=== PATIENT | male | born 1935 | race Two or more races ===

== ENCOUNTER 2017-10-22 18:08 | Inpatient (IN) | payer MEDICARE, OTHER ==
[~2017-10-22] VITALS: Ht 152.4 cm; Wt 64.5 kg
[2017-10-22 18:16] VITALS: BP 135/75
[2017-10-22] MEDS ORDERED: FOLIC ACID0.8 MG ORAL (19:34)
[2017-10-22] MEDS ORDERED: GLYBURIDE5 MG ORAL (19:34)
[2017-10-22] MEDS ORDERED: LOSARTAN POTAS100 MG ORAL (19:34)
[2017-10-22] MEDS ORDERED: ACARBOSE25 MG ORAL (19:34)
[2017-10-22] MEDS ORDERED: AMLODIPINE BES2.5 MG ORAL (19:34)
[2017-10-22] MEDS ORDERED: SENSIPAR30 MG ORAL ×2 (19:37→19:38)
[2017-10-22] MEDS ORDERED: MECLIZINE HCL25 MG ORAL (19:37)
[2017-10-22] MEDS ORDERED: RENA-VITE TABL0.8 M1 ORAL (19:37)
[2017-10-22] MEDS ORDERED: OMEPRAZOLE40 M1 ORAL (19:37)
[2017-10-22] MEDS ORDERED: RENVELA0.8 GM ORAL (19:38)
[2017-10-22] MEDS ORDERED: VITAMIN B COMP1 EAC2 ORAL (19:39)
[2017-10-22] MEDS ORDERED: SILDENAFIL20 MG ORAL (19:39)
[2017-10-22 20:10] VITALS: BP 157/84
--- NOTE | 2017-10-22 20:14 | Emergency Room Report ---
History of Present Illness General Chief Complaint: Altered Level of Consciousness Source: Patient, Medical Record Present Illness HPI 81-year-old male presents from dialysis Center with altered mental status. History otherwise limited as patient Occ[place] is unintelligible even to Occitan speakers. HPI includes type 2 DM, HTN, HLD, ESRD on HD Allergies: Coded Allergies: UNABLE TO ASSESS (Unverified , 10/22/17) Patient History Past Medical History: other - see HPI Past Surgical History: pacemaker Pertinent Family History: none Social History: Denies: smoking, alcohol use, drug use Immunizations: UTD Reviewed Nursing Documentation: PMH: Agreed, PSxH: Agreed Nursing Documentation-PMH Past Medical History: No History, Except For Hx Hypertension: Yes Hx Pacemaker: Yes Hx Diabetes: Yes Hx Dialysis: Yes - Tue, [facility], Sat/ESRD Review of Systems All Other Systems: limited - AMS? Physical Exam Vital Signs Date Time Temp Pulse Resp B/P (MAP) Pulse Ox O2 Delivery O2 Flow Rate FiO2 10/22/17 18:06 97.7 102 20 164/94 92 Nasal Cannula 2.0 97.7 Sp02 EP Interpretation: reviewed, normal General Appearance: normal inspection, well appearing, no apparent distress, alert, GCS 15, non-toxic, obese Head: normocephalic, atraumatic Eyes: bilateral eye PERRL, bilateral eye EOMI ENT: normal ENT inspection, hearing grossly normal, normal pharynx, no angioedema, normal voice, TMs + canals normal, uvula midline, moist mucus membranes Neck: normal inspection, full range of motion, supple, thyroid normal, no meningismus, no bony tend Respiratory: normal inspection, lungs clear, normal breath sounds, no rhonchi, no respiratory distress, no retraction, no accessory muscle use, no wheezing, speaking full sentences, other - Pacemaker upper left chest Cardiovascular #1: regular rate, rhythm, no edema, no JVD, normal capillary refill Gastrointestinal: normal inspection, normal bowel sounds, non tender, soft, no mass, no peritonitis, non-distended, no guarding, no hernia, no pulsatile mass Genitourinary: no CVA tenderness Musculoskeletal: normal inspection, back normal, normal range of motion, no calf tenderness, pelvis stable, Dora's Sign negative Neurologic: normal inspection, alert, oriented x3, responsive, refrigerator mover III-XII nml as tested, motor strength/tone normal, cerebellar normal, normal gait, speech normal Psychiatric: normal inspection, judgement/insight normal, mood/affect normal, no suicidal/homicidal ideation, no delusions Skin: normal inspection, normal color, no rash Lymphatic: normal inspection, no adenopathy Medical Decision Making Diagnostic Impression: Primary Impression: Altered level of consciousness ER Course vital signs significant for tachycardia Normotensive, afebrile ECG is sinus tachycardia - no peaked Twaves Labs: K normal. SerumCr elevated, likely CKD baseline. Trop elevated likely from known CKD CXR no obvious PNA Afebrile, no leuks - no obvious signs of infection. A&Ox3 - unlikely meningitis. Abdomen is non-peritoneal. Doesnt make urine. CXR without obvious PNA ?Disequilibrium as cause of AMS Endorsed to Dr Newton at 9pm for tele admit EKG Diagnostic Results Rate: tachycardiac Rhythm: NSR ST Segments: no acute changes ASA given to the pt in ED: No Rhythm Strip Diag. Results EP Interpretation: yes Rate: 109 Rhythm: NSR, no PVC's, no ectopy Chest X-Ray Diagnostic Results Chest X-Ray Diagnostic Results : Chest X-Ray Ordered: Yes # of Views/Limited/Complete: 1 View Indication: Other - AMS EP Interpretation: Yes Interpretation: no consolidation, no effusion, no pneumothorax, no acute cardiopulmonary disease Impression: No acute disease Electronically Signed by: Dr Amy Porter MD Last Vital Signs Date Time Temp Pulse Resp B/P (MAP) Pulse Ox O2 Delivery O2 Flow Rate FiO2 10/22/17 18:16 97.7 109 20 135/75 99 Nasal Cannula 2.0 97.7 Status: improved Disposition: ADMITTED INPATIENT Condition: Serious AMY PORTER M.D. Oct 22, 2017 20:13
[2017-10-22 20:30] LABS: ANION GAP 10 mmol/L (5-15); BLOOD UREA NITROGEN 27 mg/dL (7-18); CALCIUM 9.4 MG/DL (8.5-10.1); CARBON DIOXIDE 35 MMOL/L (21-32); CHLORIDE 94 MMOL/L (98-107); CREATININE 4.6 MG/DL (0.55-1.30); POTASSIUM 3.8 MMOL/L (3.5-5.1); SODIUM 139 MMOL/L (136-145)
[2017-10-22 20:41] LABS: BASOPHILS % (AUTO) 1.5 % (0.0-2.0); EOSINOPHILS % (AUTO) 1.6 % (0.0-3.0); HEMATOCRIT 32.8 % (42.0-52.0); HEMOGLOBIN 11.1 G/DL (14.2-18.0); LYMPHOCYTES % (AUTO) 7.5 % (20.0-45.0); MEAN CORPUSCULAR VOLUME 98 FL (80-99); MONOCYTES % (AUTO) 10.4 % (1.0-10.0); PLATELET COUNT 260 K/UL (150-450); RED BLOOD COUNT 3.36 M/UL (4.70-6.10); RED CELL DISTRIBUTION WIDTH 12.7 % (11.6-14.8); WHITE BLOOD COUNT 7.5 K/UL (4.8-10.8)
[2017-10-22 20:43] LABS: ALANINE AMINOTRANSFERASE 35 U/L (12-78); ALBUMIN 3.7 G/DL (3.4-5.0); ALBUMIN/GLOBULIN RATIO 0.8 (1.0-2.7); ALKALINE PHOSPHATASE 76 U/L (46-116); ASPARTATE AMINO TRANSFERASE 28 U/L (15-37); BILIRUBIN,TOTAL 0.8 MG/DL (0.2-1.0); CKMB 3.8 NG/ML (0.0-3.6); CREATINE KINASE 407 U/L (26-308)
[2017-10-22] MEDS ORDERED: Albuterol/Ipratropium 3ml neb HHN PRN (21:30)
[2017-10-22] MEDS ORDERED: Zolpidem 5mg tab ORAL PRN (21:30)
[2017-10-22] MEDS ORDERED: Morphine Sulfate 2mg/ml Inj IVP PRN (21:30)
[2017-10-22] MEDS ORDERED: Miralax 17gm pkt ORAL PRN (21:30)
[2017-10-22] MEDS ORDERED: Mylanta II UD 30ml ORAL PRN (21:30)
[2017-10-22 23:00] VITALS: BP 144/72
[2017-10-23 00:30] VITALS: BP 145/74
[2017-10-23 04:00] VITALS: BP 142/71
[2017-10-23] MEDS: NovoLOG Insulin Flexpen SUBQ SCH ×3 (06:10→17:28)
[2017-10-23 08:00] VITALS: BP 134/60
--- NOTE | 2017-10-23 08:56 | Diagnostic Imaging Report ---
Indication: Shortness of breath Technique: One view of the chest Comparison: none Findings: Suboptimal inspiration with atelectatic changes at both lung bases possibly some linear interstitial infiltrates. There is a left chest bifocal pacemaker. The heart size is upper limits of normal. The pleural spaces are clear. There is a right innominate venous stent Impression: Hypoventilatory exam with bibasilar atelectasis and possible linear interstitial infiltrates. Correlate with clinical findings Other findings as noted
[2017-10-23] MEDS ORDERED: Revatio 20mg tab ORAL SCH (09:00)
[2017-10-23] MEDS ORDERED: Losartan 50mg tab ORAL SCH (09:00)
[2017-10-23] MEDS: Renvela 800mg Pkt ORAL SCH ×3 (09:40→17:23)
[2017-10-23] MEDS: Heparin 5000 units/ml inj SUBQ SCH (09:41)
[2017-10-23 10:08] LABS: BASOPHILS % (AUTO) 1.2 % (0.0-2.0); EOSINOPHILS % (AUTO) 2.8 % (0.0-3.0); HEMATOCRIT 31.1 % (42.0-52.0); HEMOGLOBIN 10.3 G/DL (14.2-18.0); LYMPHOCYTES % (AUTO) 7.4 % (20.0-45.0); MEAN CORPUSCULAR VOLUME 99 FL (80-99); MONOCYTES % (AUTO) 13.5 % (1.0-10.0); NEUTROPHILS % (AUTO) 75.1 % (45.0-75.0); PLATELET COUNT 242 K/UL (150-450); RED BLOOD COUNT 3.13 M/UL (4.70-6.10); WHITE BLOOD COUNT 7.6 K/UL (4.8-10.8)
[2017-10-23 10:41] LABS: ALANINE AMINOTRANSFERASE 31 U/L (12-78); ALBUMIN 3.4 G/DL (3.4-5.0); ALBUMIN/GLOBULIN RATIO 0.8 (1.0-2.7); ALKALINE PHOSPHATASE 84 U/L (46-116); ANION GAP 9 mmol/L (5-15); ASPARTATE AMINO TRANSFERASE 25 U/L (15-37); BILIRUBIN,TOTAL 0.5 MG/DL (0.2-1.0); BLOOD UREA NITROGEN 43 mg/dL (7-18); CALCIUM 8.5 MG/DL (8.5-10.1); CARBON DIOXIDE 34 MMOL/L (21-32); CHLORIDE 96 MMOL/L (98-107); CHOLESTEROL 142 MG/DL (< 200); CREATININE 6.1 MG/DL (0.55-1.30); HDL CHOLESTEROL 64 MG/DL (40-60); POTASSIUM 4.2 MMOL/L (3.5-5.1); SODIUM 139 MMOL/L (136-145); TRIGLYCERIDES 68 MG/DL (30-150)
--- NOTE | 2017-10-23 10:47 | Consultation ---
Consult Note Consult Note \81-year-old male presents from dialysis Center with altered mental status. History otherwise limited as patient Citizen Of [place] is unintelligible even to Citizen Of [place] speakers. HPI includes type 2 DM, HTN, HLD, ESRD on HD Allergies: Coded Allergies: UNABLE TO ASSESS (Unverified , 10/22/17) Past Medical History: No History, Except For Hx Hypertension: Yes Hx Pacemaker: Yes Hx Diabetes: Yes Hx Dialysis: Yes - Tue, [facility], Sat/ESRD examined- data reviewed discussed with veterans employment representative/Plan encephalopathy ESRD DM HTN Pacer / CHF Plan: Dialysis today Adjust BP meds- per orders MELY SINGH Oct 23, 2017 10:47
[2017-10-23] MEDS ORDERED: Metoprolol Tartrate 12.5mg TAB ORAL ONE (11:00)
[2017-10-23 11:49] LABS: FERRITIN 1173 NG/ML (8-388); PHOSPHORUS 6.5 MG/DL (2.5-4.9)
[2017-10-23 12:00] VITALS: BP 135/74
[2017-10-23 12:09] LABS: % IRON SATURATION 70 % (15-50); IRON 131 ug/dL (50-175); TOTAL IRON BINDING CAPACITY 188 ug/dL (250-450)
--- NOTE | 2017-10-23 12:48 | Consultation ---
History of Present Illness General Date patient seen: Oct 23, 2017 Chief Complaint: Altered Level of Consciousness Reason for Consultation: pulmonary edema Present Illness HPI 81-year-old male with hx of type 2 DM, HTN, HLD, ESRD on HD presented to ER from dialysis Center with altered mental status. Pt was apparently confused and less responsive. His cxr showed bilateral pulmonary edema. I was asked to evaluate these findings. Pt is currently awake, hard of hearing. C/o Left ear pain. Allergies: Coded Allergies: UNABLE TO ASSESS (Unverified , 10/22/17) Medication History Scheduled Acarbose (Acarbose), 25 MG ORAL BID, (Reported) Amlodipine Besylate* (Amlodipine Besylate*), 2.5 MG ORAL DAILY, (Reported) Cinacalcet* (Sensipar*), Unknown Dose ORAL BEFORE MEALS AND HS, (Reported) Cinacalcet* (Sensipar*), Unknown Dose ORAL DAILY, (Reported) Folic Acid (Folic Acid), 1 TAB ORAL DAILY, (Reported) Folic Acid/Vitamin B Comp W-C (Ursula-Armani Tablet), 0.5 MG ORAL DAILY, (Reported) Glyburide (Glyburide), 5 MG ORAL DAILY, (Reported) Losartan Potassium (Losartan Potassium), 100 MG ORAL DAILY, (Reported) Omeprazole (Omeprazole), 40 MG ORAL DAILY, (Reported) Sevelamer Carbonate* (Renvela*), 800 MG ORAL THREE TIMES A DAY, (Reported) Vitamin B Complex (Vitamin B Complex), 1 CAP ORAL DAILY, (Reported) Scheduled PRN Meclizine Hcl* (Meclizine*), 25 MG ORAL EVERY 8 HOURS PRN for for dizziness, ( Reported) Miscellaneous Medications Sildenafil Citrate (Sildenafil), 25 MG ORAL, (Reported) Patient History Healthcare decision maker Resuscitation status Full Code Advanced Directive on File No Past Medical/Surgical History Past Medical/Surgical History: (1) Diabetes mellitus (2) ESRF (end stage renal failure) (3) HTN (hypertension) Review of Systems ENT: Reports: ear pain All Other Systems: negative except mentioned in HPI Physical Exam General Appearance: WD/WN Lines, tubes and drains: peripheral HEENT: normocephalic, atraumatic Neck: non-tender, normal alignment Respiratory/Chest: chest wall non-tender, lungs clear Breasts: no masses Cardiovascular/Chest: normal peripheral pulses Abdomen: normal bowel sounds Genitourinary/Rectal: normal genital exam Extremities: normal range of motion Last 24 Hour Vital Signs Date Time Temp Pulse Resp B/P (MAP) Pulse Ox O2 Delivery O2 Flow Rate FiO2 10/23/17 12:00 97.6 97 20 135/74 100 Nasal Cannula 2.0 97.6 10/23/17 09:40 134/60 10/23/17 09:40 96 134/60 10/23/17 08:00 104 10/23/17 08:00 98.2 96 20 134/60 100 Nasal Cannula 2.0 98.2 10/23/17 06:45 72 18 Nasal Cannula 2.0 28 10/23/17 04:00 102 10/23/17 04:00 98.0 99 20 142/71 99 Nasal Cannula 2.0 98.0 10/23/17 00:30 98.0 99 20 145/74 94 Nasal Cannula 2.0 98.0 10/23/17 00:00 99 10/22/17 23:22 103 16 144/72 100 Nasal Cannula 2.0 10/22/17 23:00 103 16 144/72 100 Nasal Cannula 2.0 10/22/17 20:10 97.6 109 16 157/84 98 Nasal Cannula 2.0 97.6 10/22/17 18:16 97.7 109 20 135/75 99 Nasal Cannula 2.0 97.7 10/22/17 18:06 97.7 102 20 164/94 92 Nasal Cannula 2.0 97.7 Intake and Output 10/22/17 10/23/17 19:00 07:00 Intake Total 320 ml Balance 320 ml Intake Oral 320 ml Laboratory Tests Test 10/22/17 20:14 10/23/17 09:50 White Blood Count 7.5 K/UL (4.8-10.8) 7.6 K/UL (4.8-10.8) Red Blood Count 3.36 M/UL (4.70-6.10) L 3.13 M/UL (4.70-6.10) L Hemoglobin 11.1 G/DL (14.2-18.0) L 10.3 G/DL (14.2-18.0) L Hematocrit 32.8 % (42.0-52.0) L 31.1 % (42.0-52.0) L Mean Corpuscular Volume 98 FL (80-99) 99 FL (80-99) Mean Corpuscular Hemoglobin 33.1 PG (27.0-31.0) H 33.0 PG (27.0-31.0) H Mean Corpuscular Hemoglobin Concent 33.9 G/DL (32.0-36.0) 33.2 G/DL (32.0-36.0) Red Cell Distribution Width 12.7 % (11.6-14.8) 13.0 % (11.6-14.8) Platelet Count 260 K/UL (150-450) 242 K/UL (150-450) Mean Platelet Volume 6.3 FL (6.5-10.1) L 6.3 FL (6.5-10.1) L Neutrophils (%) (Auto) 79.0 % (45.0-75.0) H 75.1 % (45.0-75.0) H Lymphocytes (%) (Auto) 7.5 % (20.0-45.0) L 7.4 % (20.0-45.0) L Monocytes (%) (Auto) 10.4 % (1.0-10.0) H 13.5 % (1.0-10.0) H Eosinophils (%) (Auto) 1.6 % (0.0-3.0) 2.8 % (0.0-3.0) Basophils (%) (Auto) 1.5 % (0.0-2.0) 1.2 % (0.0-2.0) Sodium Level 139 MMOL/L (136-145) 139 MMOL/L (136-145) Potassium Level 3.8 MMOL/L (3.5-5.1) 4.2 MMOL/L (3.5-5.1) Chloride Level 94 MMOL/L (98-107) L 96 MMOL/L (98-107) L Carbon Dioxide Level 35 MMOL/L (21-32) H 34 MMOL/L (21-32) H Anion Gap 10 mmol/L (5-15) 9 mmol/L (5-15) Blood Urea Nitrogen 27 mg/dL (7-18) H 43 mg/dL (7-18) H Creatinine 4.6 MG/DL (0.55-1.30) H 6.1 MG/DL (0.55-1.30) H Estimat Glomerular Filtration Rate mL/min (>60) mL/min (>60) Glucose Level 128 MG/DL (74-106) H 177 MG/DL (74-106) H Calcium Level 9.4 MG/DL (8.5-10.1) 8.5 MG/DL (8.5-10.1) Total Bilirubin 0.8 MG/DL (0.2-1.0) 0.5 MG/DL (0.2-1.0) Aspartate Amino Transf (AST/SGOT) 28 U/L (15-37) 25 U/L (15-37) Alanine Aminotransferase (ALT/SGPT) 35 U/L (12-78) 31 U/L (12-78) Alkaline Phosphatase 76 U/L (46-116) 84 U/L (46-116) Total Creatine Kinase 407 U/L (26-308) H Creatine Kinase MB 3.8 NG/ML (0.0-3.6) H Creatine Kinase MB Relative Index 0.9 Troponin I 0.086 ng/mL (0.000-0.056) Total Protein 8.3 G/DL (6.4-8.2) H 7.8 G/DL (6.4-8.2) Albumin 3.7 G/DL (3.4-5.0) 3.4 G/DL (3.4-5.0) Globulin 4.6 g/dL 4.4 g/dL Albumin/Globulin Ratio 0.8 (1.0-2.7) L 0.8 (1.0-2.7) L Hemoglobin A1c 7.4 % (4.3-6.0) H Uric Acid 3.2 MG/DL (2.6-7.2) Phosphorus Level 6.5 MG/DL (2.5-4.9) H Iron Level 131 ug/dL (50-175) Total Iron Binding Capacity 188 ug/dL (250-450) L Percent Iron Saturation 70 % (15-50) H Unsaturated Iron Binding 57 ug/dL (112-346) L Ferritin 1173 NG/ML (8-388) H Triglycerides Level 68 MG/DL (30-150) Cholesterol Level 142 MG/DL (< 200) LDL Cholesterol 74 mg/dL (<100) HDL Cholesterol 64 MG/DL (40-60) H Cholesterol/HDL Ratio 2.2 (3.3-4.4) L Vitamin B12 Level Pending Folate 64.8 NG/ML (8.6-58.9) H Thyroid Stimulating Hormone (TSH) 1.202 uiU/mL (0.358-3.740) Height (Feet): 5 Height (Inches): 0.00 Weight (Pounds): 180 Medications Current Medications Medications (Trade) Dose Ordered Sig/Tanya Route PRN Reason Start Time Stop Time Status Last Admin Dose Admin Acetaminophen (Tylenol) 650 mg Q4H PRN ORAL fever 10/22/17 21:30 11/21/17 21:29 Albuterol/ Ipratropium (Albuterol/ Ipratropium) 3 ml Q6HRT PRN HHN dyspnea 10/22/17 21:30 10/27/17 21:29 Amlodipine Besylate (Norvasc) 2.5 mg DAILY ORAL 10/23/17 09:00 11/22/17 08:59 10/23/17 09:40 Aspirin (ASA) 162 mg DAILY ORAL 10/23/17 12:00 11/22/17 11:59 Clonidine HCl (Catapres Tab) 0.1 mg Q4H PRN ORAL For Blood Pressure 160 and up 10/23/17 13:30 11/22/17 13:29 Dextrose (Dextrose 50%) STAT PRN IV Hypoglycemia 10/22/17 21:30 11/21/17 21:29 Heparin Sodium (Porcine) (Heparin 5000 units/ml) 5,000 units EVERY 12 HOURS SUBQ 10/23/17 09:00 11/22/17 08:59 10/23/17 09:41 Insulin Aspart (NovoLOG) BEFORE MEALS AND HS SUBQ 10/23/17 06:30 11/22/17 06:29 10/23/17 06:10 Lisinopril (Zestril) 2.5 mg BID ORAL 10/23/17 18:00 11/22/17 17:59 Metoprolol Tartrate (Lopressor) 12.5 mg Q12HR ORAL 10/23/17 21:00 11/22/17 20:59 Morphine Sulfate (Morphine Sulfate) 1 mg EVERY 4 HOURS PRN IVP For Pain 10/22/17 21:30 10/29/17 21:29 Nitroglycerin (Ntg) 1 patch Q24H TDERMAL 10/23/17 11:00 11/22/17 10:59 UNV Ondansetron HCl (Zofran) 4 mg Q6H PRN IVP Nausea & Vomiting 10/22/17 21:30 11/21/17 21:29 Polyethylene Glycol (Miralax) 17 gm HSPRN PRN ORAL Constipation 10/22/17 21:30 11/21/17 21:29 Sevelamer Carbonate (Renvela) 800 mg THREE TIMES A DAY ORAL 10/23/17 09:00 11/22/17 08:59 10/23/17 09:40 Sildenafil Citrate (Revatio) 25 mg DAILY ORAL 10/23/17 09:00 11/22/17 08:59 UNV Zolpidem Tartrate (Ambien) 5 mg HSPRN PRN ORAL Insomnia 10/22/17 21:30 10/29/17 21:29 Assessment/Plan Problem List: (1) Acute encephalopathy ICD Codes: G93.40 - Encephalopathy, unspecified SNOMED: 98767803, 588166330 (2) Delirium ICD Codes: R41.0 - Disorientation, unspecified SNOMED: 8101958 (3) ESRF (end stage renal failure) ICD Codes: N18.6 - End stage renal disease SNOMED: 28745748 (4) HTN (hypertension) ICD Codes: I10 - Essential (primary) hypertension SNOMED: 03953682 (5) Diabetes mellitus ICD Codes: E11.9 - Type 2 diabetes mellitus without complications SNOMED: 83254528 Assessment/Plan telemetry monitoring neuro evaluation HD, remove more fluids titrate fio2 to sat of 92% check electrolytes might need EEG to rule out seizures symptomatic treatment. ENRIQUE HCEW Oct 23, 2017 12:48
[2017-10-23] MEDS: Aspirin Baby 81mg ORAL SCH (13:13)
[2017-10-23 16:00] VITALS: BP 130/79
[2017-10-23] MEDS: Lisinopril 2.5mg tab ORAL SCH (17:29)
[2017-10-23] MEDS: Nitroglycerin Patch 0.4mg TDERMAL SCH (17:29)
--- NOTE | 2017-10-23 18:16 | Cardiology Progress Note ---
Assessment/Plan Assessment/Plan [id number] encepahlopathy abn cardaid enzyem of ? sig in light of renal insuf esrd dm htn repeat cardaic enzyme adn ekg no cp no ekg abn so far Objective Last 24 Hour Vital Signs Date Time Temp Pulse Resp B/P (MAP) Pulse Ox O2 Delivery O2 Flow Rate FiO2 10/23/17 17:29 120/65 10/23/17 17:29 120/65 10/23/17 16:30 Nasal Cannula 2.0 10/23/17 16:00 98.3 96 20 130/79 100 Nasal Cannula 2.0 98.3 10/23/17 16:00 100 10/23/17 13:25 Nasal Cannula 2.0 10/23/17 12:00 92 10/23/17 12:00 97.6 97 20 135/74 100 Nasal Cannula 2.0 97.6 10/23/17 09:40 134/60 10/23/17 09:40 96 134/60 10/23/17 08:00 104 10/23/17 08:00 98.2 96 20 134/60 100 Nasal Cannula 2.0 98.2 10/23/17 06:45 72 18 Nasal Cannula 2.0 28 10/23/17 04:00 102 10/23/17 04:00 98.0 99 20 142/71 99 Nasal Cannula 2.0 98.0 10/23/17 00:30 98.0 99 20 145/74 94 Nasal Cannula 2.0 98.0 10/23/17 00:00 99 10/22/17 23:22 103 16 144/72 100 Nasal Cannula 2.0 10/22/17 23:00 103 16 144/72 100 Nasal Cannula 2.0 10/22/17 20:10 97.6 109 16 157/84 98 Nasal Cannula 2.0 97.6 10/22/17 18:16 97.7 109 20 135/75 99 Nasal Cannula 2.0 97.7 Intake and Output 10/22/17 10/23/17 19:00 07:00 Intake Total 320 ml Balance 320 ml Intake Oral 320 ml Laboratory Tests Test 10/22/17 20:14 10/23/17 09:50 White Blood Count 7.5 K/UL (4.8-10.8) 7.6 K/UL (4.8-10.8) Red Blood Count 3.36 M/UL (4.70-6.10) L 3.13 M/UL (4.70-6.10) L Hemoglobin 11.1 G/DL (14.2-18.0) L 10.3 G/DL (14.2-18.0) L Hematocrit 32.8 % (42.0-52.0) L 31.1 % (42.0-52.0) L Mean Corpuscular Volume 98 FL (80-99) 99 FL (80-99) Mean Corpuscular Hemoglobin 33.1 PG (27.0-31.0) H 33.0 PG (27.0-31.0) H Mean Corpuscular Hemoglobin Concent 33.9 G/DL (32.0-36.0) 33.2 G/DL (32.0-36.0) Red Cell Distribution Width 12.7 % (11.6-14.8) 13.0 % (11.6-14.8) Platelet Count 260 K/UL (150-450) 242 K/UL (150-450) Mean Platelet Volume 6.3 FL (6.5-10.1) L 6.3 FL (6.5-10.1) L Neutrophils (%) (Auto) 79.0 % (45.0-75.0) H 75.1 % (45.0-75.0) H Lymphocytes (%) (Auto) 7.5 % (20.0-45.0) L 7.4 % (20.0-45.0) L Monocytes (%) (Auto) 10.4 % (1.0-10.0) H 13.5 % (1.0-10.0) H Eosinophils (%) (Auto) 1.6 % (0.0-3.0) 2.8 % (0.0-3.0) Basophils (%) (Auto) 1.5 % (0.0-2.0) 1.2 % (0.0-2.0) Sodium Level 139 MMOL/L (136-145) 139 MMOL/L (136-145) Potassium Level 3.8 MMOL/L (3.5-5.1) 4.2 MMOL/L (3.5-5.1) Chloride Level 94 MMOL/L (98-107) L 96 MMOL/L (98-107) L Carbon Dioxide Level 35 MMOL/L (21-32) H 34 MMOL/L (21-32) H Anion Gap 10 mmol/L (5-15) 9 mmol/L (5-15) Blood Urea Nitrogen 27 mg/dL (7-18) H 43 mg/dL (7-18) H Creatinine 4.6 MG/DL (0.55-1.30) H 6.1 MG/DL (0.55-1.30) H Estimat Glomerular Filtration Rate mL/min (>60) mL/min (>60) Glucose Level 128 MG/DL (74-106) H 177 MG/DL (74-106) H Calcium Level 9.4 MG/DL (8.5-10.1) 8.5 MG/DL (8.5-10.1) Total Bilirubin 0.8 MG/DL (0.2-1.0) 0.5 MG/DL (0.2-1.0) Aspartate Amino Transf (AST/SGOT) 28 U/L (15-37) 25 U/L (15-37) Alanine Aminotransferase (ALT/SGPT) 35 U/L (12-78) 31 U/L (12-78) Alkaline Phosphatase 76 U/L (46-116) 84 U/L (46-116) Total Creatine Kinase 407 U/L (26-308) H Creatine Kinase MB 3.8 NG/ML (0.0-3.6) H Creatine Kinase MB Relative Index 0.9 Troponin I 0.086 ng/mL (0.000-0.056) Total Protein 8.3 G/DL (6.4-8.2) H 7.8 G/DL (6.4-8.2) Albumin 3.7 G/DL (3.4-5.0) 3.4 G/DL (3.4-5.0) Globulin 4.6 g/dL 4.4 g/dL Albumin/Globulin Ratio 0.8 (1.0-2.7) L 0.8 (1.0-2.7) L Hemoglobin A1c 7.4 % (4.3-6.0) H Uric Acid 3.2 MG/DL (2.6-7.2) Phosphorus Level 6.5 MG/DL (2.5-4.9) H Iron Level 131 ug/dL (50-175) Total Iron Binding Capacity 188 ug/dL (250-450) L Percent Iron Saturation 70 % (15-50) H Unsaturated Iron Binding 57 ug/dL (112-346) L Ferritin 1173 NG/ML (8-388) H Triglycerides Level 68 MG/DL (30-150) Cholesterol Level 142 MG/DL (< 200) LDL Cholesterol 74 mg/dL (<100) HDL Cholesterol 64 MG/DL (40-60) H Cholesterol/HDL Ratio 2.2 (3.3-4.4) L Vitamin B12 Level > 2000 PG/ML (193-986) H Folate 64.8 NG/ML (8.6-58.9) H Thyroid Stimulating Hormone (TSH) 1.202 uiU/mL (0.358-3.740) CHRISTINA KU Oct 23, 2017 18:16
--- NOTE | 2017-10-23 19:20 | History & Physical ---
History and Physical History & Physicial Dictated for Int Med-Dr Newton no. [id number]. SUNNY CARBAJAL Oct 23, 2017 19:20
[2017-10-23 20:00] VITALS: BP 72/34
[2017-10-23] MEDS: Metoprolol Tartrate 12.5mg TAB ORAL SCH (21:00)
--- NOTE | 2017-10-23 22:18 | Consultation ---
Consult Note Consult Note [id number] TERESA HAYES M.D. Oct 23, 2017 22:18
[2017-10-24] MEDS ORDERED: Vancomycin 1250mg/D5W 250ml IVPB ONE (01:00)
[2017-10-24] MEDS: NovoLOG Insulin Flexpen SUBQ SCH ×5 (01:53→21:02)
[2017-10-24] MEDS: Heparin 5000 units/ml inj SUBQ SCH ×3 (01:53→21:01)
--- NOTE | 2017-10-24 05:00 | History and Physical Report ---
DATE OF ADMISSION: 10/22/2017 CHIEF COMPLAINT: The patient is an 81-year-old male, who presents with chief complaint of altered mental status. HISTORY OF PRESENT ILLNESS: The patient has a history of end-stage renal disease. The patient is currently on hemodialysis every Thursday, , and Thursday. The patient's last hemodialysis was yesterday, 10/22/2017. According to the caregiver, the patient began to experience altered mental status yesterday. The patient was transported to [place] emergency room. The patient was admitted for altered mental status to rule out acute cerebrovascular accident. PAST MEDICAL HISTORY: Significant for: 1. Type 2 diabetes. 2. End-stage renal disease, on hemodialysis every Thursday, , and Thursday. 3. Gastroesophageal reflux disease. 4. Hypertension. PAST SURGICAL HISTORY: Significant for: 1. Arteriovenous graft placement, right arm. 2. Cataract surgery. 3. Pacemaker implantation. CURRENT MEDICATIONS: 1. Acarbose 25 mg p.o. twice daily. 2. Amlodipine 2.5 mg p.o. daily. 3. Cozaar 100 mg p.o. daily. 4. 60 mg by p.o. daily. 5. Folic acid 1 mg p.o. daily. 6. Losartan 100 mg p.o. daily. 7. Meclizine 25 mg p.o. q.8 h. p.r.n. 8. Omeprazole 40 mg p.o. daily. 9. Ursula-Armani one tablet p.o. daily. 10. Renvela 800 mg three tablets p.o. twice daily. 11. Sensipar one tablet p.o. at bedtime. 12. Sildenafil 25 mg p.o. p.r.n. 13. Losartan 100 mg p.o. daily. 14. Glyburide 5 mg p.o. daily. ALLERGIES: No known drug allergies. SOCIAL HISTORY: This patient is a . The patient denies tobacco or alcohol use. REVIEW OF SYSTEMS: Unable to assess secondary to the patient's mental status. PHYSICAL EXAMINATION: GENERAL: The patient is a well-developed and well-nourished male, in moderate distress. VITAL SIGNS: Temperature 97.6 degrees, respirations 20, pulse 97, and blood pressure 135/74. HEENT: Eyes, pupils are equal and responsive to light and accommodation. Extraocular movements are intact. NECK: Supple without lymphadenopathy. CHEST: Lungs are clear to auscultation bilaterally without wheezes or rales. CARDIOVASCULAR: regular rhythm and rate. S1 and S2 normal without murmurs, rubs, or gallops. ABDOMEN: Soft, nontender, and nondistended. Positive bowel sounds. No evidence of hepatosplenomegaly. Currently, no rebound or guarding noted. RECTAL/GENITAL: Refused. NEUROLOGIC: Cranial nerves II through XII are grossly intact without focal deficits. Motor strength is 5/5 bilaterally. Deep tendon reflexes are 2+ plantar. LABORATORY AND DIAGNOSTIC DATA: WBC 7.5, hemoglobin 11.1, hematocrit 32.8, and platelets 260,000. Sodium 139, potassium 3.8, chloride 94, CO2 25, BUN 27, creatinine 4.6, and glucose 128. Troponin elevated at 0.086. Chest x-ray revealed bibasilar atelectasis with possible bibasilar infiltrate. ASSESSMENT: This is an 81-year-old male with: 1. Altered mental status. 2. Bilateral pneumonia. 3. Diabetes type 2. 4. End-stage renal disease. 5. Hypertension. TREATMENT: 1. Altered mental status. A Neurology consultation has been obtained with Dr. Mahmood. Altered mental status may be secondary to pneumonia. A Pulmonary consultation will be obtained with Dr. Ginny Zhao. We will follow recommendations of Dr. Zhao. 2. Diabetes type 2. The patient has been started on a NovoLog sliding scale. 3. End-stage renal disease. A Nephrology consultation has been obtained with Dr. Franco. The patient is scheduled for dialysis today. We will follow recommendations of Nephrology. 4. Hypertension. Continue amlodipine and losartan as above. 5. Elevated troponin. A Cardiology consultation has been obtained with Dr. Logan Walsh. A pacemaker check will be performed. Serial troponin levels will be performed. Jack Olivarez M.D. DR: SHERIF JOB#: [id number] CC:
--- NOTE | 2017-10-24 05:45 | Consultation ---
DATE OF CONSULTATION: 10/23/2017 NOTE: POOR AUDIO CARDIOLOGY CONSULTATION CONSULTING PHYSICIAN: Logan Walsh M.D. REASON FOR ADMISSION: Alteration in mentation. REASON FOR EVALUATION: Abnormal cardiac enzymes. HISTORY OF PRESENT ILLNESS: This is an elderly gentleman, who is 81 years old. He has multiple medical problems as delineated below. The patient was at the dialysis center and apparently became altered. He was transferred to the emergency room of [facility] for further evaluation. He had sinus tachycardia at the time of admission and abnormal cardiac enzymes and this consultation requested. The patient is hard of hearing, however, his son is at bedside, who is helping to get information. He actually denies any chest pain. Denies any shortness of breath. He has no PND or orthopnea. He uses one pillow at home and not adjustable bed. He has no palpitation. No dizziness or lightheadedness. He does have a cough. PAST MEDICAL HISTORY: According to [facility] records is positive for history of end-stage renal disease, on hemodialysis, status post right upper extremity brachiocephalic AV shunt placement in 2008, history of hypertension, hyperlipidemia, diabetes mellitus type 2, history of metabolic encephalopathy recently, history of arthritis, gastroesophageal reflux disease, and history of permanent pacemaker implantation. ALLERGIES: He has no known drug allergies. SOCIAL HISTORY: He does not smoke or drink alcoholic beverages nor does he use any drugs. REVIEW OF SYSTEMS: GASTROINTESTINAL: No nausea, vomiting, diarrhea, or constipation. : End-stage renal disease. PULMONARY: Positive for coughing or wheezing. CONSTITUTIONAL: Negative. NEUROLOGICAL: Altered mentation some sort, although his son feels that the patient is not quite appropriate and back to his baseline state. PHYSICAL EXAMINATION: GENERAL: Show an obese gentleman, in no respiratory distress. HEENT: Unremarkable. NECK: Supple. No jugular venous distention. No abdominojugular reflux noted. LUNGS: Appear to be relatively clear to auscultation and percussion. CARDIAC: S1 is normal. S2 is normal. Regular rate and rhythm. No heaves, thrills, gallops, or rubs are noted. ABDOMEN: Soft and nontender. Positive bowel sounds. EXTREMITIES: There is no clubbing, cyanosis, nor is there any edema. NEUROLOGICAL: He is awake, alert, and responsive. He is oriented to self. He does know that he is in the hospital. He does know [place]. He does not unfortunately know the year however. He is able to tell his date of . LABORATORY AND DIAGNOSTIC DATA: EKG shows sinus tachycardia at a rate of 111, leftward axis. On direct comparison with the EKG performed at [facility] records, which I reviewed from 10/17/2017 appears that except for the mild tachycardia, it is otherwise unchanged. Other labs, his sodium is 139, potassium 4.2, chloride 96, bicarbonate 34, BUN 43, creatinine 6.1, glucose of 177, and his A1c of 7.4. Uric acid 3.2, phosphorus 6.5, 70% iron saturation, and ferritin of 1170. AST and ALT are within normal limits. First set of cardiac enzymes 0.086 and his albumin of 3.4. Total cholesterol is 142 with LDL of 74. Vitamin B12 greater than 2000. Folic acid is normal. TSH of 1.02. I am unable to find any cardiac workup otherwise performed at [facility]. ASSESSMENT AND PLAN: 1. Toxic metabolic encephalopathy. 2. End-stage renal disease, on hemodialysis. 3. Abnormal cardiac enzymes of questionable significance in light of the renal insufficiency requiring dialysis. 4. Diabetes mellitus. 5. Hypertension. 6. History of hyperlipidemia. Dr. Newton, this patient was seen in cardiac consultation. The patient absolutely denies any chest pain at this time. He has a permanent pacemaker implantation. His EKG is fairly unremarkable. There are no electrocardiographic abnormalities. The cardiac enzyme is of questionable significance in light of the fact that he has end-stage renal disease. Repeat cardiac enzymes an echocardiogram will be ordered as well. Unless the patient has chest pain, I am not sure he is going to require perfusion imaging here at this time, may be in the future that may be performed unless wall motion abnormalities documented. I will follow the patient along with you. Dr. Jimenez, who has seen the patient previously will be covering for me as of tomorrow. Logan Walsh M.D. DR: Regina JOB#: [id number] CC:
--- NOTE | 2017-10-24 07:08 | Nephrology Progress Note ---
Assessment/Plan Problem List: (1) ESRF (end stage renal failure) (2) Acute encephalopathy Assessment encephalopathy ESRD DM HTN Pacer / CHF Plan Plan: Dialysis 10/23 next 10/26 Adjust BP meds- per consultants Subjective ROS Limited/Unobtainable: No Constitutional: Reports: malaise, weakness Objective Objective Last 24 Hour Vital Signs Date Time Temp Pulse Resp B/P (MAP) Pulse Ox O2 Delivery O2 Flow Rate FiO2 10/24/17 05:34 Nasal Cannula 2.0 28 10/24/17 05:34 95 Nasal Cannula 2.0 10/23/17 21:00 98 93/33 10/23/17 20:00 100.2 101 18 72/34 97 100.2 10/23/17 19:21 81 18 Room Air 10/23/17 17:29 120/65 10/23/17 17:29 120/65 10/23/17 16:30 Nasal Cannula 2.0 10/23/17 16:00 98.3 96 20 130/79 100 Nasal Cannula 2.0 98.3 10/23/17 16:00 100 10/23/17 13:25 Nasal Cannula 2.0 10/23/17 12:00 92 10/23/17 12:00 97.6 97 20 135/74 100 Nasal Cannula 2.0 97.6 10/23/17 09:40 134/60 10/23/17 09:40 96 134/60 10/23/17 08:00 104 10/23/17 08:00 98.2 96 20 134/60 100 Nasal Cannula 2.0 98.2 Intake and Output 10/23/17 10/24/17 19:00 07:00 Intake Total 780 ml 120 ml Output Total 2090 ml Balance -1310 ml 120 ml Intake Oral 780 ml 120 ml Output Hemodialysis UF 2090 ml Laboratory Tests 10/23/17 09:50: White Blood Count 7.6, Red Blood Count 3.13L, Hemoglobin 10.3L, Hematocrit 31.1L , Mean Corpuscular Volume 99, Mean Corpuscular Hemoglobin 33.0H, Mean Corpuscular Hemoglobin Concent 33.2, Red Cell Distribution Width 13.0, Platelet Count 242, Mean Platelet Volume 6.3L, Neutrophils (%) (Auto) 75.1H, Lymphocytes (%) (Auto) 7.4L, Monocytes (%) (Auto) 13.5H, Eosinophils (%) (Auto) 2.8, Basophils (%) (Auto) 1.2, Sodium Level 139, Potassium Level 4.2, Chloride Level 96L, Carbon Dioxide Level 34H, Anion Gap 9, Blood Urea Nitrogen 43H, Creatinine 6.1H, Estimat Glomerular Filtration Rate , Glucose Level 177H, Hemoglobin A1c 7.4H, Uric Acid 3.2, Calcium Level 8.5, Phosphorus Level 6.5H, Iron Level 131, Total Iron Binding Capacity 188L, Percent Iron Saturation 70H, Unsaturated Iron Binding 57L, Ferritin 1173H, Total Bilirubin 0.5, Aspartate Amino Transf (AST/ SGOT) 25, Alanine Aminotransferase (ALT/SGPT) 31, Alkaline Phosphatase 84, Total Protein 7.8, Albumin 3.4, Globulin 4.4, Albumin/Globulin Ratio 0.8L, Triglycerides Level 68, Cholesterol Level 142, LDL Cholesterol 74, HDL Cholesterol 64H, Cholesterol/HDL Ratio 2.2L, Vitamin B12 Level > 2000H, Folate 64.8H, Thyroid Stimulating Hormone (TSH) 1.202 Height (Feet): 5 Height (Inches): 0.00 Weight (Pounds): 180 MELY SINGH Oct 24, 2017 07:08
[2017-10-24 08:00] VITALS: BP 144/83
[2017-10-24] MEDS: Aspirin Baby 81mg ORAL SCH (08:32)
[2017-10-24] MEDS: Metoprolol Tartrate 12.5mg TAB ORAL SCH ×2 (08:33→20:59)
[2017-10-24] MEDS: Renvela 800mg Pkt ORAL SCH ×3 (08:33→17:08)
[2017-10-24] MEDS: Lisinopril 2.5mg tab ORAL SCH ×2 (08:33→17:08)
--- NOTE | 2017-10-24 09:01 | Pulmonology Progress Note ---
Assessment/Plan Problems: (1) Acute encephalopathy (2) Delirium (3) ESRF (end stage renal failure) (4) HTN (hypertension) (5) Diabetes mellitus Assessment/Plan continue abx check cultures HD by nephrology pt/ot monitor BP sliding scale diabetic diet Subjective ROS Limited/Unobtainable: No Interval Events: comfortable Allergies: Coded Allergies: NO KNOWN ALLERGIES (Verified Allergy, Unknown, 10/23/17) Objective Last 24 Hour Vital Signs Date Time Temp Pulse Resp B/P (MAP) Pulse Ox O2 Delivery O2 Flow Rate FiO2 10/24/17 08:33 144/98 10/24/17 08:33 98 144/83 10/24/17 08:33 98 144/83 10/24/17 07:29 100 Nasal Cannula 2.0 28 10/24/17 07:29 82 20 Nasal Cannula 2.0 28 10/24/17 07:29 Nasal Cannula 2.0 28 10/24/17 05:34 Nasal Cannula 2.0 28 10/24/17 05:34 95 Nasal Cannula 2.0 10/24/17 04:00 95 10/24/17 00:00 95 10/23/17 21:00 98 93/33 10/23/17 20:00 100 10/23/17 20:00 100.2 101 18 72/34 97 100.2 10/23/17 19:21 81 18 Room Air 10/23/17 17:29 120/65 10/23/17 17:29 120/65 10/23/17 16:30 Nasal Cannula 2.0 10/23/17 16:00 98.3 96 20 130/79 100 Nasal Cannula 2.0 98.3 10/23/17 16:00 100 10/23/17 13:25 Nasal Cannula 2.0 10/23/17 12:00 92 10/23/17 12:00 97.6 97 20 135/74 100 Nasal Cannula 2.0 97.6 10/23/17 09:40 134/60 10/23/17 09:40 96 134/60 Intake and Output 10/23/17 10/24/17 19:00 07:00 Intake Total 780 ml 120 ml Output Total 2090 ml Balance -1310 ml 120 ml Intake Oral 780 ml 120 ml Output Hemodialysis UF 2090 ml Objective General Appearance: WD/WN HEENT: normocephalic, atraumatic, anicteric Respiratory/Chest: chest wall non-tender, rhonchi Breasts: no masses Cardiovascular: normal peripheral pulses Abdomen: normal bowel sounds Genitourinary: normal external genitalia Laboratory Tests 10/23/17 09:50: White Blood Count 7.6, Red Blood Count 3.13L, Hemoglobin 10.3L, Hematocrit 31.1L , Mean Corpuscular Volume 99, Mean Corpuscular Hemoglobin 33.0H, Mean Corpuscular Hemoglobin Concent 33.2, Red Cell Distribution Width 13.0, Platelet Count 242, Mean Platelet Volume 6.3L, Neutrophils (%) (Auto) 75.1H, Lymphocytes (%) (Auto) 7.4L, Monocytes (%) (Auto) 13.5H, Eosinophils (%) (Auto) 2.8, Basophils (%) (Auto) 1.2, Sodium Level 139, Potassium Level 4.2, Chloride Level 96L, Carbon Dioxide Level 34H, Anion Gap 9, Blood Urea Nitrogen 43H, Creatinine 6.1H, Estimat Glomerular Filtration Rate , Glucose Level 177H, Hemoglobin A1c 7.4H, Uric Acid 3.2, Calcium Level 8.5, Phosphorus Level 6.5H, Iron Level 131, Total Iron Binding Capacity 188L, Percent Iron Saturation 70H, Unsaturated Iron Binding 57L, Ferritin 1173H, Total Bilirubin 0.5, Aspartate Amino Transf (AST/ SGOT) 25, Alanine Aminotransferase (ALT/SGPT) 31, Alkaline Phosphatase 84, Total Protein 7.8, Albumin 3.4, Globulin 4.4, Albumin/Globulin Ratio 0.8L, Triglycerides Level 68, Cholesterol Level 142, LDL Cholesterol 74, HDL Cholesterol 64H, Cholesterol/HDL Ratio 2.2L, Vitamin B12 Level > 2000H, Folate 64.8H, Thyroid Stimulating Hormone (TSH) 1.202 Current Medications Medications (Trade) Dose Ordered Sig/Tanya Route PRN Reason Start Time Stop Time Status Last Admin Dose Admin Acetaminophen (Tylenol) 650 mg Q4H PRN ORAL fever 10/22/17 21:30 11/21/17 21:29 Albuterol/ Ipratropium (Albuterol/ Ipratropium) 3 ml Q6HRT PRN HHN dyspnea 10/22/17 21:30 10/27/17 21:29 Amlodipine Besylate (Norvasc) 2.5 mg DAILY ORAL 10/23/17 09:00 11/22/17 08:59 10/24/17 08:33 Aspirin (ASA) 162 mg DAILY ORAL 10/23/17 12:00 11/22/17 11:59 10/24/17 08:32 Clonidine HCl (Catapres Tab) 0.1 mg Q4H PRN ORAL For Blood Pressure 160 and up 10/23/17 13:30 11/22/17 13:29 Dextrose (Dextrose 50%) STAT PRN IV Hypoglycemia 10/22/17 21:30 11/21/17 21:29 Heparin Sodium (Porcine) (Heparin 5000 units/ml) 5,000 units EVERY 12 HOURS SUBQ 10/23/17 09:00 11/22/17 08:59 10/24/17 08:34 Insulin Aspart (NovoLOG) BEFORE MEALS AND HS SUBQ 10/23/17 06:30 11/22/17 06:29 10/24/17 01:53 Levofloxacin 100 ml @ 100 mls/hr Q48H IVPB 10/24/17 00:00 10/31/17 00:00 10/24/17 01:47 Lisinopril (Zestril) 2.5 mg BID ORAL 10/23/17 18:00 11/22/17 17:59 10/24/17 08:33 Metoprolol Tartrate (Lopressor) 12.5 mg Q12HR ORAL 10/23/17 21:00 11/22/17 20:59 10/24/17 08:33 Morphine Sulfate (Morphine Sulfate) 1 mg EVERY 4 HOURS PRN IVP For Pain 10/22/17 21:30 10/29/17 21:29 Nitroglycerin (Ntg) 1 patch QPM TDERMAL 10/23/17 17:00 11/22/17 16:59 10/23/17 17:29 Ondansetron HCl (Zofran) 4 mg Q6H PRN IVP Nausea & Vomiting 10/22/17 21:30 11/21/17 21:29 Polyethylene Glycol (Miralax) 17 gm HSPRN PRN ORAL Constipation 10/22/17 21:30 11/21/17 21:29 Sevelamer Carbonate (Renvela) 800 mg THREE TIMES A DAY ORAL 10/23/17 09:00 11/22/17 08:59 10/24/17 08:33 Vancomycin HCl (Vanco rx to dose) 1 ea DAILY PRN MISC Per rx protocol 10/23/17 22:30 11/22/17 22:29 Zolpidem Tartrate (Ambien) 5 mg HSPRN PRN ORAL Insomnia 10/22/17 21:30 10/29/17 21:29 ENRIQUE CHEW Oct 24, 2017 09:01
--- NOTE | 2017-10-24 10:30 | Consultation ---
DATE OF CONSULTATION: 10/23/2017 INFECTIOUS DISEASE CONSULTATION CONSULTING PHYSICIAN: Manuel Almanzar M.D. REFERRING PHYSICIAN: . REASON FOR CONSULTATION: Evaluation of the patient for rule out sepsis and antibiotic management. HISTORY OF PRESENT ILLNESS: The patient is an 81-year-old male with multiple medical problems as listed below, who was brought from longterm, also found that due to confusion. The patient developed hypotension during dialysis. The patient has been admitted with impression of sepsis and Infectious Disease consultation has been requested for further evaluation of the patient's antibiotic management. At the time of my exam, the patient's mental status has improved. The patient was able to provide some information. PAST MEDICAL HISTORY: 1. End-stage renal disease, on hemodialysis. 2. Hypertension. 3. Diabetes mellitus. 4. Pacemaker placement. SOCIAL HISTORY: No history of alcohol or drug abuse currently. FAMILY HISTORY: Not contributing. ALLERGIES: No known drug allergies. MEDICATIONS: Currently off of antibiotics. PHYSICAL EXAMINATION: VITAL SIGNS: Temperature 100.2, blood pressure 77/34, earlier 130/79, pulse 100, and respiratory rate 18. HEENT: No pale conjunctivae. No icterus. NECK: No lymphadenopathy. CHEST: Clear. HEART: S1, S2. ABDOMEN: Soft and nontender. EXTREMITIES: No cyanosis. NEUROLOGIC: Awake. The patient is hard of hearing. LABORATORY AND DIAGNOSTIC DATA: Laboratories, white blood cells 7.6, hemoglobin 10, and platelets 242. BUN 43, creatinine 6.1. ALT, AST, and alkaline phosphatase are unremarkable. Chest x-ray shows bibasilar atelectasis versus infiltrate. ASSESSMENT: The patient is an 81-year-old male with: 1. Low-grade fever. 2. Hypotension. 3. Probable sepsis. 4. Rule out bacteremia. 5. Probable pneumonia (the patient is complaining of cough). PLAN: 1. We will start the patient on vancomycin and Levaquin. 2. Monitor CBC. 3. Monitor BMP. 4. Obtain blood culture and sputum culture. 5. Monitor chest x-ray. 6. Check rapid flu test. 7. Based on the patient's clinical course and laboratories, we will do further recommendations. Thank you, Dr. Zhao, for allowing me to participate in the care of this patient. I will follow the patient with you during this hospitalization. Manuel Almanzar M.D. DR: DAIJA JOB#: [id number] CC:
--- NOTE | 2017-10-24 14:14 | Cardiology Progress Note ---
Assessment/Plan Problem List: (1) HTN (hypertension) (2) ESRF (end stage renal failure) (3) Altered level of consciousness (4) Diabetes mellitus Status: stable, progressing Status Narrative Dizziness/ ? orthostasis , ? arrhythmia Mild troponin elevation - may be due to RF. No s/sx ACS ESRD, on chronic hemodialysis. Assessment/Plan Would check orthostatic VS. Will arrange pacemaker interrogation ECHO pending to evaluate LV function, wall motion. Would not pursue w/u for ischemia unless pt develops CP, ischemic EKG changes or has new WMA on ECHO. Subjective ROS Limited/Unobtainable: No Subjective Cardiology for Dr. Walsh Mr. Escobar is known to me from office and previous hospitalizations. He c/o dizziness for few days prior to adm , and at HD . No chest pain or palpitations. Objective Last 24 Hour Vital Signs Date Time Temp Pulse Resp B/P (MAP) Pulse Ox O2 Delivery O2 Flow Rate FiO2 10/24/17 08:33 144/98 10/24/17 08:33 98 144/83 10/24/17 08:33 98 144/83 10/24/17 08:00 105 10/24/17 08:00 96.1 98 20 144/83 99 96.1 10/24/17 07:29 100 Nasal Cannula 2.0 28 10/24/17 07:29 82 20 Nasal Cannula 2.0 28 10/24/17 07:29 Nasal Cannula 2.0 28 10/24/17 05:34 Nasal Cannula 2.0 28 10/24/17 05:34 95 Nasal Cannula 2.0 10/24/17 04:00 95 10/24/17 00:00 95 10/23/17 21:00 98 93/33 10/23/17 20:00 100 10/23/17 20:00 100.2 101 18 72/34 97 100.2 10/23/17 19:21 81 18 Room Air 10/23/17 17:29 120/65 10/23/17 17:29 120/65 10/23/17 16:30 Nasal Cannula 2.0 10/23/17 16:00 98.3 96 20 130/79 100 Nasal Cannula 2.0 98.3 10/23/17 16:00 100 General Appearance: WD/WN, no apparent distress, alert EENT: PERRL/EOMI Neck: supple, no JVD Rhythm: NSR Cardiovascular: normal rate, regular rhythm, no gallop/murmur Respiratory/Chest: lungs clear Abdomen: non tender, soft Extremities: other - no periph edema. L UE HD fistula - + bruit Intake and Output 10/23/17 10/24/17 19:00 07:00 Intake Total 780 ml 120 ml Output Total 2090 ml Balance -1310 ml 120 ml Intake Oral 780 ml 120 ml Output Hemodialysis UF 2090 ml MICHELLE SILVERIO Oct 24, 2017 14:14
--- NOTE | 2017-10-24 16:29 | Internal Med Progress Note ---
Subjective Date of Service: Oct 24, 2017 Physician Name Jack Carbajal Attending Physician Evin Newton MD Current Medications Medications (Trade) Dose Ordered Sig/Tanya Route PRN Reason Start Time Stop Time Status Last Admin Dose Admin Acetaminophen (Tylenol) 650 mg Q4H PRN ORAL fever 10/22/17 21:30 11/21/17 21:29 Albuterol/ Ipratropium (Albuterol/ Ipratropium) 3 ml Q6HRT PRN HHN dyspnea 10/22/17 21:30 10/27/17 21:29 Amlodipine Besylate (Norvasc) 2.5 mg DAILY ORAL 10/23/17 09:00 11/22/17 08:59 10/24/17 08:33 Aspirin (ASA) 162 mg DAILY ORAL 10/23/17 12:00 11/22/17 11:59 10/24/17 08:32 Clonidine HCl (Catapres Tab) 0.1 mg Q4H PRN ORAL For Blood Pressure 160 and up 10/23/17 13:30 11/22/17 13:29 Dextrose (Dextrose 50%) STAT PRN IV Hypoglycemia 10/22/17 21:30 11/21/17 21:29 Heparin Sodium (Porcine) (Heparin 5000 units/ml) 5,000 units EVERY 12 HOURS SUBQ 10/23/17 09:00 11/22/17 08:59 10/24/17 08:34 Insulin Aspart (NovoLOG) BEFORE MEALS AND HS SUBQ 10/23/17 06:30 11/22/17 06:29 10/24/17 11:58 Levofloxacin 100 ml @ 100 mls/hr Q48H IVPB 10/24/17 00:00 10/31/17 00:00 10/24/17 01:47 Lisinopril (Zestril) 2.5 mg BID ORAL 10/23/17 18:00 11/22/17 17:59 10/24/17 08:33 Metoprolol Tartrate (Lopressor) 12.5 mg Q12HR ORAL 10/23/17 21:00 11/22/17 20:59 10/24/17 08:33 Morphine Sulfate (Morphine Sulfate) 1 mg EVERY 4 HOURS PRN IVP For Pain 10/22/17 21:30 10/29/17 21:29 Nitroglycerin (Ntg) 1 patch QPM TDERMAL 10/23/17 17:00 11/22/17 16:59 10/23/17 17:29 Ondansetron HCl (Zofran) 4 mg Q6H PRN IVP Nausea & Vomiting 10/22/17 21:30 11/21/17 21:29 Polyethylene Glycol (Miralax) 17 gm HSPRN PRN ORAL Constipation 10/22/17 21:30 11/21/17 21:29 Sevelamer Carbonate (Renvela) 1,600 mg THREE TIMES A DAY ORAL 10/24/17 13:00 11/23/17 12:59 10/24/17 12:01 Vancomycin HCl (Vanco rx to dose) 1 ea DAILY PRN MISC Per rx protocol 10/23/17 22:30 11/22/17 22:29 Zolpidem Tartrate (Ambien) 5 mg HSPRN PRN ORAL Insomnia 10/22/17 21:30 10/29/17 21:29 Allergies: Coded Allergies: NO KNOWN ALLERGIES (Verified Allergy, Unknown, 10/23/17) ROS Limited/Unobtainable: Yes Subjective 81 YO M admitted with altered mental status. Now probable sepsis. Cover for Int Med-Dr Newton Objective Last Vital Signs Date Time Temp Pulse Resp B/P (MAP) Pulse Ox O2 Delivery O2 Flow Rate FiO2 10/24/17 08:33 144/98 10/24/17 08:33 98 10/24/17 08:00 96.1 20 99 96.1 10/24/17 07:29 Nasal Cannula 2.0 28 General Appearance: WD/WN, no apparent distress, lethargic EENT: PERRL/EOMI, normal ENT inspection Neck: non-tender, normal alignment, supple, normal inspection Cardiovascular: normal peripheral pulses, normal rate, regular rhythm, no gallop/murmur, no JVD Respiratory/Chest: chest wall non-tender, lungs clear, normal breath sounds, no respiratory distress, no accessory muscle use Abdomen: normal bowel sounds, non tender, soft, no organomegaly, no mass Extremities: normal range of motion, non-tender 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 (2) Pacemaker (3) Altered mental status (4) Pneumonia Assessment & Plan: Continue vanco and levaquin per ID (5) Diabetes mellitus, type II Assessment & Plan: Continue novolog sliding scale (6) ESRD (end stage renal disease) on dialysis (7) HTN (hypertension) Assessment & Plan: Continue lisinopril and lopressor Status: not improved JACK CARBAJAL Oct 24, 2017 16:29
[2017-10-24] MEDS: Nitroglycerin Patch 0.4mg TDERMAL SCH (17:07)
--- NOTE | 2017-10-24 18:46 | Infectious Diseases Prog Note ---
Assessment/Plan Assessment/Plan ASSESSMENT: The patient is an 81-year-old male with: Low-grade fever. Hypotension, SP Probable sepsis. Rule out bacteremia. Probable pneumonia (the patient is complaining of cough) Chest x-ray shows bibasilar atelectasis versus infiltrate End-stage renal disease, on hemodialysis. Hypertension. Diabetes mellitus. Pacemaker placement PLAN: start the patient on vancomycin and Levaquin d# 2 Monitor CBC Monitor BMP blood culture and sputum culture Monitor chest x-ray rapid flu test Subjective Allergies: Coded Allergies: NO KNOWN ALLERGIES (Verified Allergy, Unknown, 10/23/17) Subjective low grade fever Objective Vital Signs Last 24 Hour Vital Signs Date Time Temp Pulse Resp B/P (MAP) Pulse Ox O2 Delivery O2 Flow Rate FiO2 10/24/17 17:08 114/74 10/24/17 17:07 114/74 10/24/17 16:40 90 97 96 10/24/17 16:00 87 10/24/17 12:00 81 10/24/17 08:33 144/98 10/24/17 08:33 98 144/83 10/24/17 08:33 98 144/83 10/24/17 08:00 105 10/24/17 08:00 96.1 98 20 144/83 99 96.1 10/24/17 07:29 100 Nasal Cannula 2.0 28 10/24/17 07:29 82 20 Nasal Cannula 2.0 28 10/24/17 07:29 Nasal Cannula 2.0 28 10/24/17 05:34 Nasal Cannula 2.0 28 10/24/17 05:34 95 Nasal Cannula 2.0 10/24/17 04:00 95 10/24/17 00:00 95 10/23/17 21:00 98 93/33 10/23/17 20:00 100 10/23/17 20:00 100.2 101 18 72/34 97 100.2 10/23/17 19:21 81 18 Room Air Height (Feet): 5 Height (Inches): 0.00 Weight (Pounds): 180 HEENT: anicteric Respiratory/Chest: normal breath sounds Cardiovascular: regular rhythm Abdomen: no organomegaly Current Medications Medications (Trade) Dose Ordered Sig/Tanya Route PRN Reason Start Time Stop Time Status Last Admin Dose Admin Acetaminophen (Tylenol) 650 mg Q4H PRN ORAL Fever/Headache/Mild Pain 10/24/17 21:30 11/23/17 21:29 Albuterol/ Ipratropium (Albuterol/ Ipratropium) 3 ml Q6HRT PRN HHN dyspnea 10/22/17 21:30 10/27/17 21:29 Amlodipine Besylate (Norvasc) 2.5 mg DAILY ORAL 10/23/17 09:00 11/22/17 08:59 10/24/17 08:33 Aspirin (ASA) 162 mg DAILY ORAL 10/23/17 12:00 11/22/17 11:59 10/24/17 08:32 Clonidine HCl (Catapres Tab) 0.1 mg Q4H PRN ORAL For Blood Pressure 160 and up 10/23/17 13:30 11/22/17 13:29 Dextrose (Dextrose 50%) STAT PRN IV Hypoglycemia 10/22/17 21:30 11/21/17 21:29 Heparin Sodium (Porcine) (Heparin 5000 units/ml) 5,000 units EVERY 12 HOURS SUBQ 10/23/17 09:00 11/22/17 08:59 10/24/17 08:34 Insulin Aspart (NovoLOG) BEFORE MEALS AND HS SUBQ 10/23/17 06:30 11/22/17 06:29 10/24/17 11:58 Levofloxacin 100 ml @ 100 mls/hr Q48H IVPB 10/24/17 00:00 10/31/17 00:00 10/24/17 01:47 Lisinopril (Zestril) 2.5 mg BID ORAL 10/23/17 18:00 11/22/17 17:59 10/24/17 17:08 Metoprolol Tartrate (Lopressor) 12.5 mg Q12HR ORAL 10/23/17 21:00 11/22/17 20:59 10/24/17 08:33 Morphine Sulfate (Morphine Sulfate) 1 mg EVERY 4 HOURS PRN IVP For Pain 10/22/17 21:30 10/29/17 21:29 Nitroglycerin (Ntg) 1 patch QPM TDERMAL 10/23/17 17:00 11/22/17 16:59 10/24/17 17:07 Ondansetron HCl (Zofran) 4 mg Q6H PRN IVP Nausea & Vomiting 10/22/17 21:30 11/21/17 21:29 Polyethylene Glycol (Miralax) 17 gm HSPRN PRN ORAL Constipation 10/22/17 21:30 11/21/17 21:29 Sevelamer Carbonate (Renvela) 1,600 mg THREE TIMES A DAY ORAL 10/24/17 13:00 11/23/17 12:59 10/24/17 17:08 Vancomycin HCl (Vanco rx to dose) 1 ea DAILY PRN MISC Per rx protocol 10/23/17 22:30 11/22/17 22:29 Zolpidem Tartrate (Ambien) 5 mg HSPRN PRN ORAL Insomnia 10/22/17 21:30 10/29/17 21:29 TERESA HAYES M.D. Oct 24, 2017 18:46
[2017-10-24 20:00] VITALS: BP 123/52
--- NOTE | 2017-10-24 20:36 | Wound Care Consultation ---
Wound Assessment Wound Assessment : Wound Number: 1 Wound Present on Admission: Yes New Wound: No Status Change of Wound: No Wound Location Body Site Modif: left Wound Location Body Site: arm Wound Type: traumatic injury Damaris Test: Does not Damaris Traumatic Injury Wounds: Skin Tear Wound Thickness: Partial Thickness Wound Length: 2.5 Wound Width: 2.5 Wound Depth: less than 0.1 Percent of Wound Running Water/Red: 100 Wound Drainage Description: Serosanguineous Wound Drainage Amount: Scant Wound Drainage Odor: None/Absent Tissue Surrounding Wound: Erythemic Wound General Appearance: Reddened, Draining Wound Comment #1 Left hand skin tear with partial thickness skin loss Recommendation -Local wound care per protocol -Optimize nutrition -Assess and f/u accordingly for any changes NEDA TATE RN Oct 24, 2017 20:36
--- NOTE | 2017-10-24 23:31 | Consultation ---
History of Present Illness General Date patient seen: Oct 23, 2017 Chief Complaint: Altered Level of Consciousness Reason for Consultation: pulmonary edema Present Illness HPI 81-year-old male, who presents with chief complaint of altered mental status. waxing and waning of consciousness and memory impairment. the pt was hard of hearing and was a poor historian Allergies: Coded Allergies: NO KNOWN ALLERGIES (Verified Allergy, Unknown, 10/23/17) Medication History Scheduled Acarbose (Acarbose), 25 MG ORAL BID, (Reported) Amlodipine Besylate* (Amlodipine Besylate*), 2.5 MG ORAL DAILY, (Reported) Cinacalcet* (Sensipar*), Unknown Dose ORAL BEFORE MEALS AND HS, (Reported) Cinacalcet* (Sensipar*), Unknown Dose ORAL DAILY, (Reported) Folic Acid (Folic Acid), 1 TAB ORAL DAILY, (Reported) Folic Acid/Vitamin B Comp W-C (Ursula-Armani Tablet), 0.5 MG ORAL DAILY, (Reported) Glyburide (Glyburide), 5 MG ORAL DAILY, (Reported) Losartan Potassium (Losartan Potassium), 100 MG ORAL DAILY, (Reported) Omeprazole (Omeprazole), 40 MG ORAL DAILY, (Reported) Sevelamer Carbonate* (Renvela*), 800 MG ORAL THREE TIMES A DAY, (Reported) Vitamin B Complex (Vitamin B Complex), 1 CAP ORAL DAILY, (Reported) Scheduled PRN Meclizine Hcl* (Meclizine*), 25 MG ORAL EVERY 8 HOURS PRN for for dizziness, ( Reported) Miscellaneous Medications Sildenafil Citrate (Sildenafil), 25 MG ORAL, (Reported) Patient History Limited by: medical condition History Provided By: Patient, Significant Other, PMD Healthcare decision maker Resuscitation status Full Code Advanced Directive on File No Past Medical/Surgical History Past Medical/Surgical History: (1) Diabetes mellitus (2) HTN (hypertension) (3) ESRF (end stage renal failure) (4) Delirium (5) Acute encephalopathy (6) Altered level of consciousness (7) Diabetes mellitus, type II (8) Altered mental status (9) Pneumonia (10) Pacemaker (11) Elevated troponin (12) ESRD (end stage renal disease) on dialysis Review of Systems Psychiatric: Reports: prior hx, anxiety, depressed feelings, emotional problems Physical Exam General Appearance: no apparent distress, alert, confused Last 24 Hour Vital Signs Date Time Temp Pulse Resp B/P (MAP) Pulse Ox O2 Delivery O2 Flow Rate FiO2 10/24/17 20:59 97 148/83 10/24/17 20:20 97 10/24/17 20:15 92 10/24/17 20:10 92 10/24/17 20:00 98.8 92 20 123/52 100 Nasal Cannula 2.0 98.8 10/24/17 17:08 114/74 10/24/17 17:07 114/74 10/24/17 16:40 90 97 96 10/24/17 16:00 87 10/24/17 12:00 81 10/24/17 08:33 144/98 10/24/17 08:33 98 144/83 10/24/17 08:33 98 144/83 10/24/17 08:00 105 10/24/17 08:00 96.1 98 20 144/83 99 96.1 10/24/17 07:29 100 Nasal Cannula 2.0 28 10/24/17 07:29 82 20 Nasal Cannula 2.0 28 10/24/17 07:29 Nasal Cannula 2.0 28 10/24/17 05:34 Nasal Cannula 2.0 28 10/24/17 05:34 95 Nasal Cannula 2.0 10/24/17 04:00 95 10/24/17 00:00 95 Intake and Output 10/23/17 10/24/17 19:00 07:00 Intake Total 780 ml 120 ml Output Total 2090 ml Balance -1310 ml 120 ml Intake Oral 780 ml 120 ml Output Hemodialysis UF 2090 ml Height (Feet): 5 Height (Inches): 0.00 Weight (Pounds): 180 Medications Current Medications Medications (Trade) Dose Ordered Sig/Tanya Route PRN Reason Start Time Stop Time Status Last Admin Dose Admin Acetaminophen (Tylenol) 650 mg Q4H PRN ORAL Fever/Headache/Mild Pain 10/24/17 21:30 11/23/17 21:29 Albuterol/ Ipratropium (Albuterol/ Ipratropium) 3 ml Q6HRT PRN HHN dyspnea 10/22/17 21:30 10/27/17 21:29 Amlodipine Besylate (Norvasc) 2.5 mg DAILY ORAL 10/23/17 09:00 11/22/17 08:59 10/24/17 08:33 Aspirin (ASA) 162 mg DAILY ORAL 10/23/17 12:00 11/22/17 11:59 10/24/17 08:32 Clonidine HCl (Catapres Tab) 0.1 mg Q4H PRN ORAL For Blood Pressure 160 and up 10/23/17 13:30 11/22/17 13:29 Dextrose (Dextrose 50%) STAT PRN IV Hypoglycemia 10/22/17 21:30 11/21/17 21:29 Heparin Sodium (Porcine) (Heparin 5000 units/ml) 5,000 units EVERY 12 HOURS SUBQ 10/23/17 09:00 11/22/17 08:59 10/24/17 21:01 Insulin Aspart (NovoLOG) BEFORE MEALS AND HS SUBQ 10/23/17 06:30 11/22/17 06:29 10/24/17 21:02 Levofloxacin 100 ml @ 100 mls/hr Q48H IVPB 10/24/17 00:00 10/31/17 00:00 10/24/17 01:47 Lisinopril (Zestril) 2.5 mg BID ORAL 10/23/17 18:00 11/22/17 17:59 10/24/17 17:08 Metoprolol Tartrate (Lopressor) 12.5 mg Q12HR ORAL 10/23/17 21:00 11/22/17 20:59 10/24/17 20:59 Morphine Sulfate (Morphine Sulfate) 1 mg EVERY 4 HOURS PRN IVP For Pain 10/22/17 21:30 10/29/17 21:29 Nitroglycerin (Ntg) 1 patch QPM TDERMAL 10/23/17 17:00 11/22/17 16:59 10/24/17 17:07 Ondansetron HCl (Zofran) 4 mg Q6H PRN IVP Nausea & Vomiting 10/22/17 21:30 11/21/17 21:29 Polyethylene Glycol (Miralax) 17 gm HSPRN PRN ORAL Constipation 10/22/17 21:30 11/21/17 21:29 Sevelamer Carbonate (Renvela) 1,600 mg THREE TIMES A DAY ORAL 10/24/17 13:00 11/23/17 12:59 10/24/17 17:08 Vancomycin HCl (Vanco rx to dose) 1 ea DAILY PRN MISC Per rx protocol 10/23/17 22:30 11/22/17 22:29 Zolpidem Tartrate (Ambien) 5 mg HSPRN PRN ORAL Insomnia 10/22/17 21:30 10/29/17 21:29 Assessment/Plan Status: stable Assessment/Plan encepalopathy zyprexa 2.5 mg qhs Umair Matthews M.D. Oct 24, 2017 23:31
--- NOTE | 2017-10-24 23:35 | General Progress Note ---
Assessment/Plan Assessment/Plan encepalopathy zyprexa 2.5 mg qhs Subjective Date patient seen: Oct 24, 2017 Neurologic/Psychiatric: Reports: anxiety, depressed, emotional problems Allergies: Coded Allergies: NO KNOWN ALLERGIES (Verified Allergy, Unknown, 10/23/17) Objective Last 24 Hour Vital Signs Date Time Temp Pulse Resp B/P (MAP) Pulse Ox O2 Delivery O2 Flow Rate FiO2 10/24/17 20:59 97 148/83 10/24/17 20:20 97 10/24/17 20:15 92 10/24/17 20:10 92 10/24/17 20:00 98.8 92 20 123/52 100 Nasal Cannula 2.0 98.8 10/24/17 17:08 114/74 10/24/17 17:07 114/74 10/24/17 16:40 90 97 96 10/24/17 16:00 87 10/24/17 12:00 81 10/24/17 08:33 144/98 10/24/17 08:33 98 144/83 10/24/17 08:33 98 144/83 10/24/17 08:00 105 10/24/17 08:00 96.1 98 20 144/83 99 96.1 10/24/17 07:29 100 Nasal Cannula 2.0 28 10/24/17 07:29 82 20 Nasal Cannula 2.0 28 10/24/17 07:29 Nasal Cannula 2.0 28 10/24/17 05:34 Nasal Cannula 2.0 28 10/24/17 05:34 95 Nasal Cannula 2.0 10/24/17 04:00 95 10/24/17 00:00 95 Intake and Output 10/23/17 10/24/17 19:00 07:00 Intake Total 780 ml 120 ml Output Total 2090 ml Balance -1310 ml 120 ml Intake Oral 780 ml 120 ml Output Hemodialysis UF 2090 ml Height (Feet): 5 Height (Inches): 0.00 Weight (Pounds): 180 General Appearance: alert, confused Umair Matthews M.D. Oct 24, 2017 23:35
[2017-10-25] VITALS: BP 122/54
[2017-10-25 04:00] VITALS: BP 131/57
[2017-10-25] MEDS: NovoLOG Insulin Flexpen SUBQ SCH ×4 (06:30→23:00)
[2017-10-25 08:00] VITALS: BP 156/77
[2017-10-25 08:33] LABS: BASOPHILS % (AUTO) 1.2 % (0.0-2.0); EOSINOPHILS % (AUTO) 2.2 % (0.0-3.0); HEMATOCRIT 27.4 % (42.0-52.0); HEMOGLOBIN 9.1 G/DL (14.2-18.0); LYMPHOCYTES % (AUTO) 10.8 % (20.0-45.0); MEAN CORPUSCULAR VOLUME 99 FL (80-99); MONOCYTES % (AUTO) 11.2 % (1.0-10.0); NEUTROPHILS % (AUTO) 74.7 % (45.0-75.0); PLATELET COUNT 226 K/UL (150-450); RED BLOOD COUNT 2.77 M/UL (4.70-6.10); RED CELL DISTRIBUTION WIDTH 12.5 % (11.6-14.8); WHITE BLOOD COUNT 8.8 K/UL (4.8-10.8)
[2017-10-25] MEDS: Aspirin Baby 81mg ORAL SCH (09:11)
[2017-10-25] MEDS: Lisinopril 2.5mg tab ORAL SCH ×2 (09:12→17:23)
[2017-10-25] MEDS: Metoprolol Tartrate 12.5mg TAB ORAL SCH ×2 (09:13→21:00)
[2017-10-25] MEDS: Renvela 800mg Pkt ORAL SCH ×3 (09:14→17:23)
[2017-10-25] MEDS: Heparin 5000 units/ml inj SUBQ SCH ×2 (09:18→22:44)
[2017-10-25 09:21] LABS: ALANINE AMINOTRANSFERASE 27 U/L (12-78); ALBUMIN 3.4 G/DL (3.4-5.0); ALBUMIN/GLOBULIN RATIO 0.8 (1.0-2.7); ALKALINE PHOSPHATASE 68 U/L (46-116); ANION GAP 15 mmol/L (5-15); ASPARTATE AMINO TRANSFERASE 21 U/L (15-37); BILIRUBIN,TOTAL 0.7 MG/DL (0.2-1.0); BLOOD UREA NITROGEN 75 mg/dL (7-18); CALCIUM 8.4 MG/DL (8.5-10.1); CARBON DIOXIDE 29 MMOL/L (21-32); CHLORIDE 92 MMOL/L (98-107); CREATININE 8.5 MG/DL (0.55-1.30); POTASSIUM 4.6 MMOL/L (3.5-5.1); SODIUM 136 MMOL/L (136-145)
--- NOTE | 2017-10-25 10:53 | Diagnostic Imaging Report ---
Indication: Shortness of breath Technique: XRAY Chest 1v Comparison: 10/22/2017 Findings: Cardiomediastinal silhouette is stable. Left chest pacemaker is present. Lungs are unchanged with linear and interstitial opacities. No new infiltrates are seen. Osseous structures are stable. Right-sided vascular stents are unchanged. Impression: No interval change from 10/22/2017.
--- NOTE | 2017-10-25 11:14 | Pulmonology Progress Note ---
Assessment/Plan Problems: (1) Acute encephalopathy (2) Delirium (3) ESRF (end stage renal failure) (4) HTN (hypertension) (5) Diabetes mellitus Assessment/Plan pace maker checked, all OK continue abx check cultures HD by nephrology pt/ot monitor BP sliding scale diabetic diet dc planning Subjective ROS Limited/Unobtainable: No Constitutional: Reports: no symptoms HEENT: Repors: no symptoms Respiratory: Reports: no symptoms Allergies: Coded Allergies: NO KNOWN ALLERGIES (Verified Allergy, Unknown, 10/23/17) Objective Last 24 Hour Vital Signs Date Time Temp Pulse Resp B/P (MAP) Pulse Ox O2 Delivery O2 Flow Rate FiO2 10/25/17 09:13 92 156/77 10/25/17 09:12 156/77 10/25/17 09:12 92 156/77 10/25/17 09:08 Room Air 10/25/17 09:07 96 Room Air 10/25/17 09:06 89 22 Room Air 10/25/17 08:00 91 10/25/17 08:00 99.0 92 20 156/77 97 Room Air 2.0 21 99.0 78 10/25/17 04:00 97.9 78 20 131/57 95 Room Air 21 97.9 10/25/17 04:00 79 10/25/17 00:00 98.1 79 20 122/54 93 Room Air 21 98.1 10/25/17 00:00 76 10/24/17 20:59 97 148/83 10/24/17 20:20 97 10/24/17 20:15 92 10/24/17 20:10 92 10/24/17 20:00 98.8 92 20 123/52 100 Nasal Cannula 2.0 98.8 10/24/17 20:00 88 10/24/17 19:00 Nasal Cannula 2.0 28 10/24/17 19:00 79 20 Nasal Cannula 2.0 28 10/24/17 19:00 99 Nasal Cannula 2.0 28 10/24/17 17:08 114/74 10/24/17 17:07 114/74 10/24/17 16:40 90 97 96 10/24/17 16:00 87 10/24/17 12:00 81 Intake and Output 10/24/17 10/25/17 19:00 07:00 Intake Total 360 ml 120 ml Balance 360 ml 120 ml Intake Oral 360 ml 120 ml Objective General Appearance: WD/WN HEENT: normocephalic, atraumatic, anicteric Respiratory/Chest: chest wall non-tender, rhonchi Breasts: no masses Cardiovascular: normal peripheral pulses Abdomen: normal bowel sounds Genitourinary: normal external genitalia Microbiology Date/Time Source Procedure Growth Status 10/22/17 21:10 Nose MRSA Culture - Final NO METHICILLIN RESISTANT STAPH AUREUS... Complete 10/22/17 21:10 Rectum VRE Culture - Final Enterococcus Faecium - Vre Complete Laboratory Tests 10/25/17 07:55: White Blood Count 8.8, Red Blood Count 2.77L, Hemoglobin 9.1L, Hematocrit 27.4L , Mean Corpuscular Volume 99, Mean Corpuscular Hemoglobin 32.9H, Mean Corpuscular Hemoglobin Concent 33.3, Red Cell Distribution Width 12.5, Platelet Count 226, Mean Platelet Volume 6.0L, Neutrophils (%) (Auto) 74.7, Lymphocytes ( %) (Auto) 10.8L, Monocytes (%) (Auto) 11.2H, Eosinophils (%) (Auto) 2.2, Basophils (%) (Auto) 1.2, Sodium Level 136, Potassium Level 4.6, Chloride Level 92L, Carbon Dioxide Level 29, Anion Gap 15, Blood Urea Nitrogen 75H, Creatinine 8.5H, Estimat Glomerular Filtration Rate , Glucose Level 153H, Calcium Level 8.4L, Phosphorus Level 6.0H, Magnesium Level 2.4, Total Bilirubin 0.7, Aspartate Amino Transf (AST/SGOT) 21, Alanine Aminotransferase (ALT/SGPT) 27, Alkaline Phosphatase 68, Total Protein 7.8, Albumin 3.4, Globulin 4.4, Albumin/ Globulin Ratio 0.8L, Random Vancomycin Level 14.1 Current Medications Medications (Trade) Dose Ordered Sig/Tanya Route PRN Reason Start Time Stop Time Status Last Admin Dose Admin Acetaminophen (Tylenol) 650 mg Q4H PRN ORAL Fever/Headache/Mild Pain 10/24/17 21:30 11/23/17 21:29 Albuterol/ Ipratropium (Albuterol/ Ipratropium) 3 ml Q6HRT PRN HHN dyspnea 10/22/17 21:30 10/27/17 21:29 Amlodipine Besylate (Norvasc) 2.5 mg DAILY ORAL 10/23/17 09:00 11/22/17 08:59 10/25/17 09:12 Aspirin (ASA) 162 mg DAILY ORAL 10/23/17 12:00 11/22/17 11:59 10/25/17 09:11 Clonidine HCl (Catapres Tab) 0.1 mg Q4H PRN ORAL For Blood Pressure 160 and up 10/23/17 13:30 11/22/17 13:29 Dextrose (Dextrose 50%) STAT PRN IV Hypoglycemia 10/22/17 21:30 11/21/17 21:29 Heparin Sodium (Porcine) (Heparin 5000 units/ml) 5,000 units EVERY 12 HOURS SUBQ 10/23/17 09:00 11/22/17 08:59 10/25/17 09:18 Insulin Aspart (NovoLOG) BEFORE MEALS AND HS SUBQ 10/23/17 06:30 11/22/17 06:29 10/24/17 21:02 Levofloxacin 100 ml @ 100 mls/hr Q48H IVPB 10/24/17 00:00 10/31/17 00:00 10/24/17 01:47 Lisinopril (Zestril) 2.5 mg BID ORAL 10/23/17 18:00 11/22/17 17:59 10/25/17 09:12 Metoprolol Tartrate (Lopressor) 12.5 mg Q12HR ORAL 10/23/17 21:00 11/22/17 20:59 10/25/17 09:13 Morphine Sulfate (Morphine Sulfate) 1 mg EVERY 4 HOURS PRN IVP For Pain 10/22/17 21:30 10/29/17 21:29 Nitroglycerin (Ntg) 1 patch QPM TDERMAL 10/23/17 17:00 11/22/17 16:59 10/24/17 17:07 Ondansetron HCl (Zofran) 4 mg Q6H PRN IVP Nausea & Vomiting 10/22/17 21:30 11/21/17 21:29 Polyethylene Glycol (Miralax) 17 gm HSPRN PRN ORAL Constipation 10/22/17 21:30 11/21/17 21:29 Sevelamer Carbonate (Renvela) 1,600 mg THREE TIMES A DAY ORAL 10/24/17 13:00 11/23/17 12:59 10/25/17 09:14 Vancomycin HCl (Vanco rx to dose) 1 ea DAILY PRN MISC Per rx protocol 10/23/17 22:30 11/22/17 22:29 Vancomycin HCl 500 mg/Dextrose 275 ml @ 275 mls/hr ONCE ONCE IVPB 10/25/17 12:00 10/25/17 12:59 Zolpidem Tartrate (Ambien) 5 mg HSPRN PRN ORAL Insomnia 10/22/17 21:30 10/29/17 21:29 ENRIQUE CHEW Oct 25, 2017 11:14
[2017-10-25 12:00] VITALS: BP 144/62
[2017-10-25] MEDS ORDERED: Vancomycin 500mg in D5W 275ml IVPB ONE (12:00)
--- NOTE | 2017-10-25 14:22 | Cardiology Progress Note ---
Assessment/Plan Problem List: (1) HTN (hypertension) (2) ESRF (end stage renal failure) (3) Altered level of consciousness (4) Diabetes mellitus Status: stable, progressing Status Narrative Dizziness/ ? orthostasis , ? arrhythmia Mild troponin elevation - may be due to RF. No s/sx ACS ESRD, on chronic hemodialysis. AMS Assessment/Plan Orthostatic VS negative - BP increasing 120/ - 190 syst w/ lying to standing Would allow some elevation of SBP as recent hypotension noted ( 70s -90s systolic on 10/23), poss due to autonomic insuff. Pacemaker interrogated today - minimal pacing 1%; normal pacing thresholds 0.625 v atr, 1.625 v/ vent , sensing 1.8 mv atr, 3.6 mv ventr and no arrhythmias on stored diagnostics - no changes made ECHO pending to evaluate LV function, wall motion. Subjective ROS Limited/Unobtainable: No Subjective Cardiology for Dr. Walsh Hx per RN/translating. Mr. Escobar c/o CP; states it is his esophagus. Denies dyspnea, dizziness or palpitations Objective Last 24 Hour Vital Signs Date Time Temp Pulse Resp B/P (MAP) Pulse Ox O2 Delivery O2 Flow Rate FiO2 10/25/17 12:00 98.1 78 20 144/62 96 Room Air 21 98.1 10/25/17 12:00 77 10/25/17 09:13 92 156/77 10/25/17 09:12 156/77 10/25/17 09:12 92 156/77 10/25/17 09:08 Room Air 10/25/17 09:07 96 Room Air 10/25/17 09:06 89 22 Room Air 10/25/17 09:00 74 72 80 10/25/17 08:00 91 10/25/17 08:00 99.0 92 20 156/77 97 Room Air 2.0 21 99.0 78 10/25/17 04:00 97.9 78 20 131/57 95 Room Air 21 97.9 10/25/17 04:00 79 10/25/17 00:00 98.1 79 20 122/54 93 Room Air 21 98.1 10/25/17 00:00 76 10/24/17 20:59 97 148/83 10/24/17 20:20 97 10/24/17 20:15 92 10/24/17 20:10 92 10/24/17 20:00 98.8 92 20 123/52 100 Nasal Cannula 2.0 98.8 10/24/17 20:00 88 10/24/17 19:00 Nasal Cannula 2.0 28 10/24/17 19:00 79 20 Nasal Cannula 2.0 28 10/24/17 19:00 99 Nasal Cannula 2.0 28 10/24/17 17:08 114/74 10/24/17 17:07 114/74 10/24/17 16:40 90 97 96 10/24/17 16:00 87 General Appearance: WD/WN, obese EENT: PERRL/EOMI Neck: supple, no JVD Rhythm: NSR Cardiovascular: normal rate, regular rhythm, no gallop/murmur Respiratory/Chest: lungs clear Abdomen: non tender, soft Extremities: no swelling Intake and Output 10/24/17 10/25/17 19:00 07:00 Intake Total 360 ml 120 ml Balance 360 ml 120 ml Intake Oral 360 ml 120 ml Laboratory Tests Test 10/25/17 07:55 White Blood Count 8.8 K/UL (4.8-10.8) Red Blood Count 2.77 M/UL (4.70-6.10) L Hemoglobin 9.1 G/DL (14.2-18.0) L Hematocrit 27.4 % (42.0-52.0) L Mean Corpuscular Volume 99 FL (80-99) Mean Corpuscular Hemoglobin 32.9 PG (27.0-31.0) H Mean Corpuscular Hemoglobin Concent 33.3 G/DL (32.0-36.0) Red Cell Distribution Width 12.5 % (11.6-14.8) Platelet Count 226 K/UL (150-450) Mean Platelet Volume 6.0 FL (6.5-10.1) L Neutrophils (%) (Auto) 74.7 % (45.0-75.0) Lymphocytes (%) (Auto) 10.8 % (20.0-45.0) L Monocytes (%) (Auto) 11.2 % (1.0-10.0) H Eosinophils (%) (Auto) 2.2 % (0.0-3.0) Basophils (%) (Auto) 1.2 % (0.0-2.0) Sodium Level 136 MMOL/L (136-145) Potassium Level 4.6 MMOL/L (3.5-5.1) Chloride Level 92 MMOL/L (98-107) L Carbon Dioxide Level 29 MMOL/L (21-32) Anion Gap 15 mmol/L (5-15) Blood Urea Nitrogen 75 mg/dL (7-18) H Creatinine 8.5 MG/DL (0.55-1.30) H Estimat Glomerular Filtration Rate mL/min (>60) Glucose Level 153 MG/DL (74-106) H Calcium Level 8.4 MG/DL (8.5-10.1) L Phosphorus Level 6.0 MG/DL (2.5-4.9) H Magnesium Level 2.4 MG/DL (1.8-2.4) Total Bilirubin 0.7 MG/DL (0.2-1.0) Aspartate Amino Transf (AST/SGOT) 21 U/L (15-37) Alanine Aminotransferase (ALT/SGPT) 27 U/L (12-78) Alkaline Phosphatase 68 U/L (46-116) Total Protein 7.8 G/DL (6.4-8.2) Albumin 3.4 G/DL (3.4-5.0) Globulin 4.4 g/dL Albumin/Globulin Ratio 0.8 (1.0-2.7) L Random Vancomycin Level 14.1 ug/mL Microbiology Date/Time Source Procedure Growth Status 10/22/17 21:10 Nose MRSA Culture - Final NO METHICILLIN RESISTANT STAPH AUREUS... Complete 10/22/17 21:10 Rectum VRE Culture - Final Enterococcus Faecium - Vre Complete MICHELLE SILVERIO Oct 25, 2017 14:22
--- NOTE | 2017-10-25 14:31 | Nephrology Progress Note ---
Assessment/Plan Problem List: (1) ESRF (end stage renal failure) (2) Acute encephalopathy Assessment encephalopathy ESRD DM HTN Pacer / CHF Plan Plan: Dialysis 10/23 next 10/26 Adjust BP meds- per consultants per orders Subjective ROS Limited/Unobtainable: No Constitutional: Reports: malaise Objective Objective Last 24 Hour Vital Signs Date Time Temp Pulse Resp B/P (MAP) Pulse Ox O2 Delivery O2 Flow Rate FiO2 10/25/17 12:00 98.1 78 20 144/62 96 Room Air 21 98.1 10/25/17 12:00 77 10/25/17 09:13 92 156/77 10/25/17 09:12 156/77 10/25/17 09:12 92 156/77 10/25/17 09:08 Room Air 10/25/17 09:07 96 Room Air 10/25/17 09:06 89 22 Room Air 10/25/17 09:00 74 72 80 10/25/17 08:00 91 10/25/17 08:00 99.0 92 20 156/77 97 Room Air 2.0 21 99.0 78 10/25/17 04:00 97.9 78 20 131/57 95 Room Air 21 97.9 10/25/17 04:00 79 10/25/17 00:00 98.1 79 20 122/54 93 Room Air 21 98.1 10/25/17 00:00 76 10/24/17 20:59 97 148/83 10/24/17 20:20 97 10/24/17 20:15 92 10/24/17 20:10 92 10/24/17 20:00 98.8 92 20 123/52 100 Nasal Cannula 2.0 98.8 10/24/17 20:00 88 10/24/17 19:00 Nasal Cannula 2.0 28 10/24/17 19:00 79 20 Nasal Cannula 2.0 28 10/24/17 19:00 99 Nasal Cannula 2.0 28 10/24/17 17:08 114/74 10/24/17 17:07 114/74 10/24/17 16:40 90 97 96 10/24/17 16:00 87 Intake and Output 10/24/17 10/25/17 19:00 07:00 Intake Total 360 ml 120 ml Balance 360 ml 120 ml Intake Oral 360 ml 120 ml Laboratory Tests 10/25/17 07:55: White Blood Count 8.8, Red Blood Count 2.77L, Hemoglobin 9.1L, Hematocrit 27.4L , Mean Corpuscular Volume 99, Mean Corpuscular Hemoglobin 32.9H, Mean Corpuscular Hemoglobin Concent 33.3, Red Cell Distribution Width 12.5, Platelet Count 226, Mean Platelet Volume 6.0L, Neutrophils (%) (Auto) 74.7, Lymphocytes ( %) (Auto) 10.8L, Monocytes (%) (Auto) 11.2H, Eosinophils (%) (Auto) 2.2, Basophils (%) (Auto) 1.2, Sodium Level 136, Potassium Level 4.6, Chloride Level 92L, Carbon Dioxide Level 29, Anion Gap 15, Blood Urea Nitrogen 75H, Creatinine 8.5H, Estimat Glomerular Filtration Rate , Glucose Level 153H, Calcium Level 8.4L, Phosphorus Level 6.0H, Magnesium Level 2.4, Total Bilirubin 0.7, Aspartate Amino Transf (AST/SGOT) 21, Alanine Aminotransferase (ALT/SGPT) 27, Alkaline Phosphatase 68, Total Protein 7.8, Albumin 3.4, Globulin 4.4, Albumin/ Globulin Ratio 0.8L, Random Vancomycin Level 14.1 Height (Feet): 5 Height (Inches): 0.00 Weight (Pounds): 146 General Appearance: confused Cardiovascular: normal rate Respiratory/Chest: decreased breath sounds Abdomen: soft MELY SINGH Oct 25, 2017 14:31
[2017-10-25 16:00] VITALS: BP 140/61
--- NOTE | 2017-10-25 16:00 | Internal Med Progress Note ---
Subjective Date of Service: Oct 25, 2017 Physician Name Sunny Carbajal Attending Physician Evin Newton MD Current Medications Medications (Trade) Dose Ordered Sig/Tanya Route PRN Reason Start Time Stop Time Status Last Admin Dose Admin Acetaminophen (Tylenol) 650 mg Q4H PRN ORAL Fever/Headache/Mild Pain 10/24/17 21:30 11/23/17 21:29 Albuterol/ Ipratropium (Albuterol/ Ipratropium) 3 ml Q6HRT PRN HHN dyspnea 10/22/17 21:30 10/27/17 21:29 Amlodipine Besylate (Norvasc) 2.5 mg DAILY ORAL 10/23/17 09:00 11/22/17 08:59 10/25/17 09:12 Aspirin (ASA) 162 mg DAILY ORAL 10/23/17 12:00 11/22/17 11:59 10/25/17 09:11 Clonidine HCl (Catapres Tab) 0.1 mg Q4H PRN ORAL For Blood Pressure 160 and up 10/23/17 13:30 11/22/17 13:29 Dextrose (Dextrose 50%) STAT PRN IV Hypoglycemia 10/22/17 21:30 11/21/17 21:29 Docusate Sodium (Colace) 100 mg THREE TIMES A DAY ORAL 10/25/17 18:00 11/24/17 17:59 Heparin Sodium (Porcine) (Heparin 5000 units/ml) 5,000 units EVERY 12 HOURS SUBQ 10/23/17 09:00 11/22/17 08:59 10/25/17 09:18 Insulin Aspart (NovoLOG) BEFORE MEALS AND HS SUBQ 10/23/17 06:30 11/22/17 06:29 10/25/17 12:00 Levofloxacin 100 ml @ 100 mls/hr Q48H IVPB 10/24/17 00:00 10/31/17 00:00 10/24/17 01:47 Lisinopril (Zestril) 2.5 mg BID ORAL 10/23/17 18:00 11/22/17 17:59 10/25/17 09:12 Metoprolol Tartrate (Lopressor) 12.5 mg Q12HR ORAL 10/23/17 21:00 11/22/17 20:59 10/25/17 09:13 Morphine Sulfate (Morphine Sulfate) 1 mg EVERY 4 HOURS PRN IVP For Pain 10/22/17 21:30 10/29/17 21:29 Nitroglycerin (Ntg) 1 patch QPM TDERMAL 10/23/17 17:00 11/22/17 16:59 10/24/17 17:07 Ondansetron HCl (Zofran) 4 mg Q6H PRN IVP Nausea & Vomiting 10/22/17 21:30 11/21/17 21:29 Polyethylene Glycol (Miralax) 17 gm HSPRN PRN ORAL Constipation 10/22/17 21:30 11/21/17 21:29 Sevelamer Carbonate (Renvela) 1,600 mg THREE TIMES A DAY ORAL 10/24/17 13:00 11/23/17 12:59 10/25/17 11:58 Vancomycin HCl (Vanco rx to dose) 1 ea DAILY PRN MISC Per rx protocol 10/23/17 22:30 11/22/17 22:29 Zolpidem Tartrate (Ambien) 5 mg HSPRN PRN ORAL Insomnia 10/22/17 21:30 10/29/17 21:29 Allergies: Coded Allergies: NO KNOWN ALLERGIES (Verified Allergy, Unknown, 10/23/17) ROS Limited/Unobtainable: No Constitutional: Reports: no symptoms HEENT: Reports: no symptoms Cardiovascular: Reports: no symptoms Respiratory: Reports: no symptoms Gastrointestinal/Abdominal: Reports: no symptoms Genitourinary: Reports: no symptoms Neurologic/Psychiatric: Reports: no symptoms Subjective 81 YO M admitted with altered mental status. Now probable sepsis. Cover for Int Giovanni-Dr Newton Objective Last Vital Signs Date Time Temp Pulse Resp B/P (MAP) Pulse Ox O2 Delivery O2 Flow Rate FiO2 10/25/17 12:00 98.1 78 20 144/62 96 Room Air 21 98.1 10/25/17 08:00 2.0 Laboratory Tests Test 10/25/17 07:55 White Blood Count 8.8 K/UL (4.8-10.8) Red Blood Count 2.77 M/UL (4.70-6.10) L Hemoglobin 9.1 G/DL (14.2-18.0) L Hematocrit 27.4 % (42.0-52.0) L Mean Corpuscular Volume 99 FL (80-99) Mean Corpuscular Hemoglobin 32.9 PG (27.0-31.0) H Mean Corpuscular Hemoglobin Concent 33.3 G/DL (32.0-36.0) Red Cell Distribution Width 12.5 % (11.6-14.8) Platelet Count 226 K/UL (150-450) Mean Platelet Volume 6.0 FL (6.5-10.1) L Neutrophils (%) (Auto) 74.7 % (45.0-75.0) Lymphocytes (%) (Auto) 10.8 % (20.0-45.0) L Monocytes (%) (Auto) 11.2 % (1.0-10.0) H Eosinophils (%) (Auto) 2.2 % (0.0-3.0) Basophils (%) (Auto) 1.2 % (0.0-2.0) Sodium Level 136 MMOL/L (136-145) Potassium Level 4.6 MMOL/L (3.5-5.1) Chloride Level 92 MMOL/L (98-107) L Carbon Dioxide Level 29 MMOL/L (21-32) Anion Gap 15 mmol/L (5-15) Blood Urea Nitrogen 75 mg/dL (7-18) H Creatinine 8.5 MG/DL (0.55-1.30) H Estimat Glomerular Filtration Rate mL/min (>60) Glucose Level 153 MG/DL (74-106) H Calcium Level 8.4 MG/DL (8.5-10.1) L Phosphorus Level 6.0 MG/DL (2.5-4.9) H Magnesium Level 2.4 MG/DL (1.8-2.4) Total Bilirubin 0.7 MG/DL (0.2-1.0) Aspartate Amino Transf (AST/SGOT) 21 U/L (15-37) Alanine Aminotransferase (ALT/SGPT) 27 U/L (12-78) Alkaline Phosphatase 68 U/L (46-116) Total Protein 7.8 G/DL (6.4-8.2) Albumin 3.4 G/DL (3.4-5.0) Globulin 4.4 g/dL Albumin/Globulin Ratio 0.8 (1.0-2.7) L Random Vancomycin Level 14.1 ug/mL Microbiology Date/Time Source Procedure Growth Status 10/22/17 21:10 Nose MRSA Culture - Final NO METHICILLIN RESISTANT STAPH AUREUS... Complete 10/22/17 21:10 Rectum VRE Culture - Final Enterococcus Faecium - Vre Complete Intake and Output 10/24/17 10/25/17 19:00 07:00 Intake Total 360 ml 120 ml Balance 360 ml 120 ml Intake Oral 360 ml 120 ml Objective General Appearance: WD/WN, no apparent distress, lethargic EENT: PERRL/EOMI, normal ENT inspection Neck: non-tender, normal alignment, supple, normal inspection Cardiovascular: normal peripheral pulses, normal rate, regular rhythm, no gallop/murmur, no JVD Respiratory/Chest: chest wall non-tender, lungs clear, normal breath sounds, no respiratory distress, no accessory muscle use Abdomen: normal bowel sounds, non tender, soft, no organomegaly, no mass Extremities: normal range of motion, non-tender 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 (2) Pacemaker (3) Altered mental status (4) Pneumonia Assessment & Plan: Continue vanco and levaquin per ID (5) Diabetes mellitus, type II Assessment & Plan: Continue novolog sliding scale (6) ESRD (end stage renal disease) on dialysis (7) HTN (hypertension) Assessment & Plan: Continue lisinopril and lopressor Status: not improved SUNNY CARBAJAL Oct 25, 2017 15:59
--- NOTE | 2017-10-25 16:34 | Cardiology Report ---
APPROVED REPORT EKG Measurement Heart [id number] Sinus tachycardia Possible Anterior infarct, age undetermined Abnormal ECG
[2017-10-25] MEDS: Nitroglycerin Patch 0.4mg TDERMAL SCH (16:47)
[2017-10-25] MEDS: Docusate 100mg cap ORAL SCH (17:22)
[2017-10-25 20:00] VITALS: BP 135/68
[2017-10-26] VITALS (7 sets, daily range): BP systolic 110–133; BP diastolic 50–79
[2017-10-26] MEDS: NovoLOG Insulin Flexpen SUBQ SCH ×4 (05:37→21:00)
[2017-10-26 08:44] LABS: BASOPHILS % (AUTO) 1.4 % (0.0-2.0); EOSINOPHILS % (AUTO) 1.8 % (0.0-3.0); HEMATOCRIT 29.4 % (42.0-52.0); HEMOGLOBIN 10.2 G/DL (14.2-18.0); LYMPHOCYTES % (AUTO) 8.7 % (20.0-45.0); MEAN CORPUSCULAR VOLUME 97 FL (80-99); MONOCYTES % (AUTO) 11.7 % (1.0-10.0); NEUTROPHILS % (AUTO) 76.4 % (45.0-75.0); PLATELET COUNT 286 K/UL (150-450); RED BLOOD COUNT 3.02 M/UL (4.70-6.10); RED CELL DISTRIBUTION WIDTH 12.6 % (11.6-14.8); WHITE BLOOD COUNT 9.1 K/UL (4.8-10.8)
[2017-10-26 08:52] LABS: ANION GAP 14 mmol/L (5-15); BLOOD UREA NITROGEN 100 mg/dL (7-18); CALCIUM 8.8 MG/DL (8.5-10.1); CARBON DIOXIDE 28 MMOL/L (21-32); CHLORIDE 91 MMOL/L (98-107); CREATININE 9.9 MG/DL (0.55-1.30); POTASSIUM 5.9 MMOL/L (3.5-5.1); SODIUM 133 MMOL/L (136-145)
[2017-10-26] MEDS: Aspirin Baby 81mg ORAL SCH (09:00)
[2017-10-26] MEDS: Lisinopril 2.5mg tab ORAL SCH ×2 (09:00→17:58)
[2017-10-26] MEDS: Renvela 800mg Pkt ORAL SCH ×3 (09:00→17:58)
[2017-10-26] MEDS: Docusate 100mg cap ORAL SCH ×3 (09:00→17:58)
[2017-10-26] MEDS: Metoprolol Tartrate 12.5mg TAB ORAL SCH ×2 (09:00→21:00)
[2017-10-26] MEDS: Heparin 5000 units/ml inj SUBQ SCH ×2 (09:00→21:00)
--- NOTE | 2017-10-26 10:13 | Nephrology Progress Note ---
Assessment/Plan Problem List: (1) ESRF (end stage renal failure) (2) Acute encephalopathy (3) Pacemaker Assessment encephalopathy ESRD DM HTN Pacer / CHF Plan Plan: Dialysis 10/26 Adjust BP meds- per consultants per orders Subjective ROS Limited/Unobtainable: No Constitutional: Reports: malaise Objective Objective Last 24 Hour Vital Signs Date Time Temp Pulse Resp B/P (MAP) Pulse Ox O2 Delivery O2 Flow Rate FiO2 10/26/17 09:00 133/79 10/26/17 09:00 98 133/79 10/26/17 07:28 98.6 98 21 133/79 98 98.6 10/26/17 07:10 99 Room Air 21 10/26/17 07:10 Room Air 21 10/26/17 07:10 94 20 Room Air 21 10/26/17 04:00 93 10/26/17 04:00 113 20 126/66 98 Room Air 10/26/17 00:00 98.2 84 20 110/53 98 Room Air 98.2 10/26/17 00:00 85 10/25/17 21:00 85 10/25/17 21:00 77 140/81 10/25/17 20:44 Room Air 21 10/25/17 20:43 99 Room Air 21 10/25/17 20:43 77 20 Room Air 21 10/25/17 20:00 99.3 79 20 135/68 97 Room Air 99.3 10/25/17 17:23 140/81 10/25/17 16:47 140/61 10/25/17 16:00 75 10/25/17 16:00 96.6 72 20 140/61 99 Room Air 21 96.6 10/25/17 12:00 98.1 78 20 144/62 96 Room Air 21 98.1 10/25/17 12:00 77 Intake and Output 10/25/17 10/26/17 19:00 07:00 Intake Total 360 ml Balance 360 ml Intake Oral 360 ml # Bowel Movements 1 Laboratory Tests 10/26/17 07:35: White Blood Count 9.1, Red Blood Count 3.02L, Hemoglobin 10.2L, Hematocrit 29.4L , Mean Corpuscular Volume 97, Mean Corpuscular Hemoglobin 33.7H, Mean Corpuscular Hemoglobin Concent 34.6, Red Cell Distribution Width 12.6, Platelet Count 286, Mean Platelet Volume 6.0L, Neutrophils (%) (Auto) 76.4H, Lymphocytes (%) (Auto) 8.7L, Monocytes (%) (Auto) 11.7H, Eosinophils (%) (Auto) 1.8, Basophils (%) (Auto) 1.4, Sodium Level 133L, Potassium Level 5.9H, Chloride Level 91L, Carbon Dioxide Level 28, Anion Gap 14, Blood Urea Nitrogen 100H, Creatinine 9.9H, Estimat Glomerular Filtration Rate , Glucose Level 91, Calcium Level 8.8 Height (Feet): 5 Height (Inches): 0.00 Weight (Pounds): 132 General Appearance: confused Respiratory/Chest: decreased breath sounds Abdomen: soft MELY SINGH Oct 26, 2017 10:12
--- NOTE | 2017-10-26 10:46 | Infectious Diseases Prog Note ---
Assessment/Plan Assessment/Plan ASSESSMENT: The patient is an 81-year-old male with: Low-grade fever, improving Hypotension, SP Probable sepsis. Probable pneumonia (the patient is complaining of cough) Chest x-ray shows bibasilar atelectasis versus infiltrate End-stage renal disease, on hemodialysis. Hypertension. Diabetes mellitus. Pacemaker placement PLAN: Continue empiric vancomycin and Levaquin d# 4/5-7 Monitor CBC Monitor BMP blood culture and sputum culture Monitor chest x-ray rapid flu test and sp cx Subjective Allergies: Coded Allergies: NO KNOWN ALLERGIES (Verified Allergy, Unknown, 10/23/17) Subjective afebrile >48hrs no leukocytosis Objective Vital Signs Last 24 Hour Vital Signs Date Time Temp Pulse Resp B/P (MAP) Pulse Ox O2 Delivery O2 Flow Rate FiO2 10/26/17 09:00 133/79 10/26/17 09:00 98 133/79 10/26/17 09:00 88 101 97 10/26/17 08:00 91 10/26/17 07:28 98.6 98 21 133/79 98 98.6 10/26/17 07:10 99 Room Air 21 10/26/17 07:10 Room Air 21 10/26/17 07:10 94 20 Room Air 21 10/26/17 04:00 93 10/26/17 04:00 113 20 126/66 98 Room Air 10/26/17 00:00 98.2 84 20 110/53 98 Room Air 98.2 10/26/17 00:00 85 10/25/17 21:00 85 10/25/17 21:00 77 140/81 10/25/17 20:44 Room Air 21 10/25/17 20:43 99 Room Air 21 10/25/17 20:43 77 20 Room Air 21 10/25/17 20:00 99.3 79 20 135/68 97 Room Air 99.3 10/25/17 17:23 140/81 10/25/17 16:47 140/61 10/25/17 16:00 75 10/25/17 16:00 96.6 72 20 140/61 99 Room Air 21 96.6 10/25/17 12:00 98.1 78 20 144/62 96 Room Air 21 98.1 10/25/17 12:00 77 Height (Feet): 5 Height (Inches): 0.00 Weight (Pounds): 132 Objective General Appearance: WD/WN, no apparent distress, lethargic EENT: PERRL/EOMI, normal ENT inspection Neck: non-tender, normal alignment, supple, normal inspection Cardiovascular: normal peripheral pulses, normal rate, regular rhythm, no gallop/murmur, no JVD Respiratory/Chest: chest wall non-tender, lungs clear, normal breath sounds, no respiratory distress, no accessory muscle use Abdomen: normal bowel sounds, non tender, soft, no organomegaly, no mass Extremities: normal range of motion, non-tender 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 Skin: normal pigmentation, warm/dry Laboratory Tests Test 10/26/17 07:35 White Blood Count 9.1 K/UL (4.8-10.8) Red Blood Count 3.02 M/UL (4.70-6.10) L Hemoglobin 10.2 G/DL (14.2-18.0) L Hematocrit 29.4 % (42.0-52.0) L Mean Corpuscular Volume 97 FL (80-99) Mean Corpuscular Hemoglobin 33.7 PG (27.0-31.0) H Mean Corpuscular Hemoglobin Concent 34.6 G/DL (32.0-36.0) Red Cell Distribution Width 12.6 % (11.6-14.8) Platelet Count 286 K/UL (150-450) Mean Platelet Volume 6.0 FL (6.5-10.1) L Neutrophils (%) (Auto) 76.4 % (45.0-75.0) H Lymphocytes (%) (Auto) 8.7 % (20.0-45.0) L Monocytes (%) (Auto) 11.7 % (1.0-10.0) H Eosinophils (%) (Auto) 1.8 % (0.0-3.0) Basophils (%) (Auto) 1.4 % (0.0-2.0) Sodium Level 133 MMOL/L (136-145) L Potassium Level 5.9 MMOL/L (3.5-5.1) H Chloride Level 91 MMOL/L (98-107) L Carbon Dioxide Level 28 MMOL/L (21-32) Anion Gap 14 mmol/L (5-15) Blood Urea Nitrogen 100 mg/dL (7-18) H Creatinine 9.9 MG/DL (0.55-1.30) H Estimat Glomerular Filtration Rate mL/min (>60) Glucose Level 91 MG/DL (74-106) Calcium Level 8.8 MG/DL (8.5-10.1) Current Medications Medications (Trade) Dose Ordered Sig/Tanya Route PRN Reason Start Time Stop Time Status Last Admin Dose Admin Acetaminophen (Tylenol) 650 mg Q4H PRN ORAL Fever/Headache/Mild Pain 10/24/17 21:30 11/23/17 21:29 Albuterol/ Ipratropium (Albuterol/ Ipratropium) 3 ml Q6HRT PRN HHN dyspnea 10/22/17 21:30 10/27/17 21:29 Amlodipine Besylate (Norvasc) 2.5 mg DAILY ORAL 10/23/17 09:00 11/22/17 08:59 10/25/17 09:12 Aspirin (ASA) 162 mg DAILY ORAL 10/23/17 12:00 11/22/17 11:59 10/25/17 09:11 Clonidine HCl (Catapres Tab) 0.1 mg Q4H PRN ORAL For Blood Pressure 160 and up 10/23/17 13:30 11/22/17 13:29 Dextrose (Dextrose 50%) STAT PRN IV Hypoglycemia 10/22/17 21:30 11/21/17 21:29 Docusate Sodium (Colace) 100 mg THREE TIMES A DAY ORAL 10/25/17 18:00 11/24/17 17:59 10/25/17 17:22 Heparin Sodium (Porcine) (Heparin 5000 units/ml) 5,000 units EVERY 12 HOURS SUBQ 10/23/17 09:00 11/22/17 08:59 10/25/17 22:44 Insulin Aspart (NovoLOG) BEFORE MEALS AND HS SUBQ 10/23/17 06:30 11/22/17 06:29 10/25/17 23:00 Levofloxacin 100 ml @ 100 mls/hr Q48H IVPB 10/24/17 00:00 10/31/17 00:00 10/25/17 23:57 Lisinopril (Zestril) 2.5 mg BID ORAL 10/23/17 18:00 11/22/17 17:59 10/25/17 17:23 Metoprolol Tartrate (Lopressor) 12.5 mg Q12HR ORAL 10/23/17 21:00 11/22/17 20:59 10/25/17 09:13 Morphine Sulfate (Morphine Sulfate) 1 mg EVERY 4 HOURS PRN IVP For Pain 10/22/17 21:30 10/29/17 21:29 Nitroglycerin (Ntg) 1 patch QPM TDERMAL 10/23/17 17:00 11/22/17 16:59 10/25/17 16:47 Ondansetron HCl (Zofran) 4 mg Q6H PRN IVP Nausea & Vomiting 10/22/17 21:30 11/21/17 21:29 Polyethylene Glycol (Miralax) 17 gm HSPRN PRN ORAL Constipation 10/22/17 21:30 11/21/17 21:29 Sevelamer Carbonate (Renvela) 1,600 mg THREE TIMES A DAY ORAL 10/24/17 13:00 11/23/17 12:59 10/25/17 17:23 Vancomycin HCl (Vanco rx to dose) 1 ea DAILY PRN MISC Per rx protocol 10/23/17 22:30 11/22/17 22:29 Zolpidem Tartrate (Ambien) 5 mg HSPRN PRN ORAL Insomnia 10/22/17 21:30 10/29/17 21:29 Patti Pelaez M.D. Oct 26, 2017 10:46
--- NOTE | 2017-10-26 12:30 | Neurology Progress Note ---
Interim History Interim History ROS Limited/Unobtainable: No Objective Physical Exam Last Vital Signs Date Time Temp Pulse Resp B/P (MAP) Pulse Ox O2 Delivery O2 Flow Rate FiO2 10/26/17 11:17 98.2 98 21 113/67 96 98.2 10/26/17 07:10 Room Air 21 10/25/17 08:00 2.0 Laboratory Tests Test 10/26/17 07:35 White Blood Count 9.1 K/UL (4.8-10.8) Red Blood Count 3.02 M/UL (4.70-6.10) L Hemoglobin 10.2 G/DL (14.2-18.0) L Hematocrit 29.4 % (42.0-52.0) L Mean Corpuscular Volume 97 FL (80-99) Mean Corpuscular Hemoglobin 33.7 PG (27.0-31.0) H Mean Corpuscular Hemoglobin Concent 34.6 G/DL (32.0-36.0) Red Cell Distribution Width 12.6 % (11.6-14.8) Platelet Count 286 K/UL (150-450) Mean Platelet Volume 6.0 FL (6.5-10.1) L Neutrophils (%) (Auto) 76.4 % (45.0-75.0) H Lymphocytes (%) (Auto) 8.7 % (20.0-45.0) L Monocytes (%) (Auto) 11.7 % (1.0-10.0) H Eosinophils (%) (Auto) 1.8 % (0.0-3.0) Basophils (%) (Auto) 1.4 % (0.0-2.0) Sodium Level 133 MMOL/L (136-145) L Potassium Level 5.9 MMOL/L (3.5-5.1) H Chloride Level 91 MMOL/L (98-107) L Carbon Dioxide Level 28 MMOL/L (21-32) Anion Gap 14 mmol/L (5-15) Blood Urea Nitrogen 100 mg/dL (7-18) H Creatinine 9.9 MG/DL (0.55-1.30) H Estimat Glomerular Filtration Rate mL/min (>60) Glucose Level 91 MG/DL (74-106) Calcium Level 8.8 MG/DL (8.5-10.1) Impression/Recommendations Status: not improved Recommendations #[id number] ADRIAN LAM Oct 26, 2017 12:30
--- NOTE | 2017-10-26 12:55 | Pulmonology Progress Note ---
Assessment/Plan Problems: (1) Acute encephalopathy (2) Delirium (3) ESRF (end stage renal failure) (4) HTN (hypertension) (5) Diabetes mellitus Assessment/Plan pace maker checked, all OK waiting for EHO continue abx check cultures HD by nephrology pt/ot monitor BP sliding scale diabetic diet Subjective ROS Limited/Unobtainable: No Constitutional: Reports: no symptoms HEENT: Repors: no symptoms Respiratory: Reports: no symptoms Allergies: Coded Allergies: NO KNOWN ALLERGIES (Verified Allergy, Unknown, 10/23/17) Objective Last 24 Hour Vital Signs Date Time Temp Pulse Resp B/P (MAP) Pulse Ox O2 Delivery O2 Flow Rate FiO2 10/26/17 11:17 98.2 98 21 113/67 96 98.2 10/26/17 09:00 133/79 10/26/17 09:00 98 133/79 10/26/17 09:00 88 101 97 10/26/17 08:00 91 10/26/17 07:28 98.6 98 21 133/79 98 98.6 10/26/17 07:10 99 Room Air 21 10/26/17 07:10 Room Air 21 10/26/17 07:10 94 20 Room Air 21 10/26/17 04:00 93 10/26/17 04:00 113 20 126/66 98 Room Air 10/26/17 00:00 98.2 84 20 110/53 98 Room Air 98.2 10/26/17 00:00 85 10/25/17 21:00 85 10/25/17 21:00 77 140/81 10/25/17 20:44 Room Air 21 10/25/17 20:43 99 Room Air 21 10/25/17 20:43 77 20 Room Air 21 10/25/17 20:00 99.3 79 20 135/68 97 Room Air 99.3 10/25/17 17:23 140/81 10/25/17 16:47 140/61 10/25/17 16:00 75 10/25/17 16:00 96.6 72 20 140/61 99 Room Air 21 96.6 Intake and Output 10/25/17 10/26/17 19:00 07:00 Intake Total 360 ml Balance 360 ml Intake Oral 360 ml # Bowel Movements 1 Objective General Appearance: WD/WN HEENT: normocephalic, atraumatic, anicteric Respiratory/Chest: chest wall non-tender, rhonchi Breasts: no masses Cardiovascular: normal peripheral pulses Abdomen: normal bowel sounds Genitourinary: normal external genitalia Laboratory Tests 10/26/17 07:35: White Blood Count 9.1, Red Blood Count 3.02L, Hemoglobin 10.2L, Hematocrit 29.4L , Mean Corpuscular Volume 97, Mean Corpuscular Hemoglobin 33.7H, Mean Corpuscular Hemoglobin Concent 34.6, Red Cell Distribution Width 12.6, Platelet Count 286, Mean Platelet Volume 6.0L, Neutrophils (%) (Auto) 76.4H, Lymphocytes (%) (Auto) 8.7L, Monocytes (%) (Auto) 11.7H, Eosinophils (%) (Auto) 1.8, Basophils (%) (Auto) 1.4, Sodium Level 133L, Potassium Level 5.9H, Chloride Level 91L, Carbon Dioxide Level 28, Anion Gap 14, Blood Urea Nitrogen 100H, Creatinine 9.9H, Estimat Glomerular Filtration Rate , Glucose Level 91, Calcium Level 8.8 Current Medications Medications (Trade) Dose Ordered Sig/Tanya Route PRN Reason Start Time Stop Time Status Last Admin Dose Admin Acetaminophen (Tylenol) 650 mg Q4H PRN ORAL Fever/Headache/Mild Pain 10/24/17 21:30 11/23/17 21:29 Albuterol/ Ipratropium (Albuterol/ Ipratropium) 3 ml Q6HRT PRN HHN dyspnea 10/22/17 21:30 10/27/17 21:29 Amlodipine Besylate (Norvasc) 2.5 mg DAILY ORAL 10/23/17 09:00 11/22/17 08:59 10/25/17 09:12 Aspirin (ASA) 162 mg DAILY ORAL 10/23/17 12:00 11/22/17 11:59 10/25/17 09:11 Clonidine HCl (Catapres Tab) 0.1 mg Q4H PRN ORAL For Blood Pressure 160 and up 10/23/17 13:30 11/22/17 13:29 Dextrose (Dextrose 50%) STAT PRN IV Hypoglycemia 10/22/17 21:30 11/21/17 21:29 Docusate Sodium (Colace) 100 mg THREE TIMES A DAY ORAL 10/25/17 18:00 11/24/17 17:59 10/25/17 17:22 Heparin Sodium (Porcine) (Heparin 5000 units/ml) 5,000 units EVERY 12 HOURS SUBQ 10/23/17 09:00 11/22/17 08:59 10/25/17 22:44 Insulin Aspart (NovoLOG) BEFORE MEALS AND HS SUBQ 10/23/17 06:30 11/22/17 06:29 10/25/17 23:00 Levofloxacin 100 ml @ 100 mls/hr Q48H IVPB 10/24/17 00:00 10/31/17 00:00 10/25/17 23:57 Lisinopril (Zestril) 2.5 mg BID ORAL 10/23/17 18:00 11/22/17 17:59 10/25/17 17:23 Metoprolol Tartrate (Lopressor) 12.5 mg Q12HR ORAL 10/23/17 21:00 11/22/17 20:59 10/25/17 09:13 Morphine Sulfate (Morphine Sulfate) 1 mg EVERY 4 HOURS PRN IVP For Pain 10/22/17 21:30 10/29/17 21:29 Nitroglycerin (Ntg) 1 patch QPM TDERMAL 10/23/17 17:00 11/22/17 16:59 10/25/17 16:47 Ondansetron HCl (Zofran) 4 mg Q6H PRN IVP Nausea & Vomiting 10/22/17 21:30 11/21/17 21:29 Polyethylene Glycol (Miralax) 17 gm HSPRN PRN ORAL Constipation 10/22/17 21:30 11/21/17 21:29 Sevelamer Carbonate (Renvela) 1,600 mg THREE TIMES A DAY ORAL 10/24/17 13:00 11/23/17 12:59 10/25/17 17:23 Vancomycin HCl (Vanco rx to dose) 1 ea DAILY PRN MISC Per rx protocol 10/23/17 22:30 11/22/17 22:29 Zolpidem Tartrate (Ambien) 5 mg HSPRN PRN ORAL Insomnia 10/22/17 21:30 10/29/17 21:29 ENRIQUE CHEW Oct 26, 2017 12:55
--- NOTE | 2017-10-26 14:00 | Diagnostic Imaging Report ---
Indications: Altered mental status Technique: Spiral acquisitions obtained through the brain. Angled axial and coronal 5 x 5 mm slices were reconstructed. Total dose length product 1383.03 mGycm. CTDI vol(s) 70.38 mGy. Dose reduction achieved using automated exposure control Comparison: None. Findings: A subdural hematoma overlies much of the left convexity. This measures up to 7 mm thick. It is isoattenuating were slightly hypoattenuating to white matter. No definite acute blood is demonstrated. There is a 4 mm thick subdural hematoma overlying the left convexity, covering a smaller extent than that on the right. Likewise, no acute blood. There is minimal mass effect, with the left hematoma resulting in slight inward displacement of the sulci, and there is about 3 mm of [id number] midline shift. There is no evidence of subarachnoid or intraparenchymal bleed. There is age-related enlargement of the ventricles and extra axial CSF spaces. This is somewhat asymmetric in the right lateral ventricle. Normal reyna-white differentiation. The calvarium is intact. There is ethmoid sinus disease. There is bilateral mastoid opacification. There is opacification of the left middle ear cavity and questionably of the right middle ear cavity. 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 There is mild associated mass effect as described. Critical value findings phoned to Dr. Zhao at 3034 on 10/26/[address] scanner at [facility] is accredited by the [employer] and the scans are performed using protocols designed to limit radiation exposure to as low as reasonably achievable to attain images of sufficient resolution adequate for diagnostic evaluation.
--- NOTE | 2017-10-26 17:14 | Cardiology Progress Note ---
Assessment/Plan Assessment/Plan 1. encephalopathy chroncic subdural hematomas 2. End-stage renal disease, on hemodialysis. 3. Abnormal cardiac enzymes of questionable significance in light of the renal insufficiency requiring dialysis. 4. Diabetes mellitus. 5. Hypertension. 6. History of hyperlipidemia. apparently become more confused over jluis week end ct performed: Positive for bilateral convexity late subacute or chronic subdural hematomas, that on the left larger than that on the right. There is mild associated mass effect as described. tele neg bp is fine depiste 3 liter of fluid removal d/w rn nursery echo no reprot yet will reorder cv stable for med surg but need neuro input pacer interrogated function seem fine Subjective ROS Limited/Unobtainable: Yes Subjective confused post hemodialysis not issue with bp duirng hd had 3 liter removed Objective Last 24 Hour Vital Signs Date Time Temp Pulse Resp B/P (MAP) Pulse Ox O2 Delivery O2 Flow Rate FiO2 10/26/17 15:32 98.2 94 21 110/50 98 98.2 10/26/17 12:30 Room Air 2.0 21 10/26/17 11:17 98.2 98 21 113/67 96 98.2 10/26/17 09:00 133/79 10/26/17 09:00 98 133/79 10/26/17 09:00 88 101 97 10/26/17 08:00 91 10/26/17 07:28 98.6 98 21 133/79 98 98.6 10/26/17 07:10 99 Room Air 21 10/26/17 07:10 Room Air 21 10/26/17 07:10 94 20 Room Air 21 10/26/17 04:00 93 10/26/17 04:00 113 20 126/66 98 Room Air 10/26/17 00:00 98.2 84 20 110/53 98 Room Air 98.2 10/26/17 00:00 85 10/25/17 21:00 85 10/25/17 21:00 77 140/81 10/25/17 20:44 Room Air 21 10/25/17 20:43 99 Room Air 21 10/25/17 20:43 77 20 Room Air 21 10/25/17 20:00 99.3 79 20 135/68 97 Room Air 99.3 10/25/17 17:23 140/81 General Appearance: no apparent distress, other - confused Neck: supple Cardiovascular: normal rate, regular rhythm Respiratory/Chest: lungs clear, normal breath sounds Abdomen: normal bowel sounds, non tender, soft Extremities: no swelling Intake and Output 10/25/17 10/26/17 19:00 07:00 Intake Total 360 ml Balance 360 ml Intake Oral 360 ml # Bowel Movements 1 Laboratory Tests Test 10/26/17 07:35 White Blood Count 9.1 K/UL (4.8-10.8) Red Blood Count 3.02 M/UL (4.70-6.10) L Hemoglobin 10.2 G/DL (14.2-18.0) L Hematocrit 29.4 % (42.0-52.0) L Mean Corpuscular Volume 97 FL (80-99) Mean Corpuscular Hemoglobin 33.7 PG (27.0-31.0) H Mean Corpuscular Hemoglobin Concent 34.6 G/DL (32.0-36.0) Red Cell Distribution Width 12.6 % (11.6-14.8) Platelet Count 286 K/UL (150-450) Mean Platelet Volume 6.0 FL (6.5-10.1) L Neutrophils (%) (Auto) 76.4 % (45.0-75.0) H Lymphocytes (%) (Auto) 8.7 % (20.0-45.0) L Monocytes (%) (Auto) 11.7 % (1.0-10.0) H Eosinophils (%) (Auto) 1.8 % (0.0-3.0) Basophils (%) (Auto) 1.4 % (0.0-2.0) Sodium Level 133 MMOL/L (136-145) L Potassium Level 5.9 MMOL/L (3.5-5.1) H Chloride Level 91 MMOL/L (98-107) L Carbon Dioxide Level 28 MMOL/L (21-32) Anion Gap 14 mmol/L (5-15) Blood Urea Nitrogen 100 mg/dL (7-18) H Creatinine 9.9 MG/DL (0.55-1.30) H Estimat Glomerular Filtration Rate mL/min (>60) Glucose Level 91 MG/DL (74-106) Calcium Level 8.8 MG/DL (8.5-10.1) Microbiology Date/Time Source Procedure Growth Status 10/26/17 11:30 Nasopharynx Influenza Types A,B Antigen (DONIS) - Final Complete CHRISTINA KU Oct 26, 2017 17:14
[2017-10-26] MEDS: Nitroglycerin Patch 0.4mg TDERMAL SCH (17:58)
--- NOTE | 2017-10-26 18:45 | Internal Med Progress Note ---
Subjective Date of Service: Oct 26, 2017 Physician Name Sunny Carbajal Attending Physician Evin Newton MD Current Medications Medications (Trade) Dose Ordered Sig/Tanya Route PRN Reason Start Time Stop Time Status Last Admin Dose Admin Acetaminophen (Tylenol) 650 mg Q4H PRN ORAL Fever/Headache/Mild Pain 10/24/17 21:30 11/23/17 21:29 Albuterol/ Ipratropium (Albuterol/ Ipratropium) 3 ml Q6HRT PRN HHN dyspnea 10/22/17 21:30 10/27/17 21:29 Amlodipine Besylate (Norvasc) 2.5 mg DAILY ORAL 10/23/17 09:00 11/22/17 08:59 10/25/17 09:12 Aspirin (ASA) 162 mg DAILY ORAL 10/23/17 12:00 11/22/17 11:59 10/25/17 09:11 Clonidine HCl (Catapres Tab) 0.1 mg Q4H PRN ORAL For Blood Pressure 160 and up 10/23/17 13:30 11/22/17 13:29 Dextrose (Dextrose 50%) STAT PRN IV Hypoglycemia 10/22/17 21:30 11/21/17 21:29 Docusate Sodium (Colace) 100 mg THREE TIMES A DAY ORAL 10/25/17 18:00 11/24/17 17:59 10/25/17 17:22 Heparin Sodium (Porcine) (Heparin 5000 units/ml) 5,000 units EVERY 12 HOURS SUBQ 10/23/17 09:00 11/22/17 08:59 10/25/17 22:44 Insulin Aspart (NovoLOG) BEFORE MEALS AND HS SUBQ 10/23/17 06:30 11/22/17 06:29 10/25/17 23:00 Levofloxacin 100 ml @ 100 mls/hr Q48H IVPB 10/24/17 00:00 10/31/17 00:00 10/25/17 23:57 Lisinopril (Zestril) 2.5 mg BID ORAL 10/23/17 18:00 11/22/17 17:59 10/25/17 17:23 Metoprolol Tartrate (Lopressor) 12.5 mg Q12HR ORAL 10/23/17 21:00 11/22/17 20:59 10/25/17 09:13 Morphine Sulfate (Morphine Sulfate) 1 mg EVERY 4 HOURS PRN IVP For Pain 10/22/17 21:30 10/29/17 21:29 Nitroglycerin (Ntg) 1 patch QPM TDERMAL 10/23/17 17:00 11/22/17 16:59 10/26/17 17:58 Ondansetron HCl (Zofran) 4 mg Q6H PRN IVP Nausea & Vomiting 10/22/17 21:30 11/21/17 21:29 Polyethylene Glycol (Miralax) 17 gm HSPRN PRN ORAL Constipation 10/22/17 21:30 11/21/17 21:29 Sevelamer Carbonate (Renvela) 1,600 mg THREE TIMES A DAY ORAL 10/24/17 13:00 11/23/17 12:59 10/25/17 17:23 Vancomycin HCl (Vanco rx to dose) 1 ea DAILY PRN MISC Per rx protocol 10/23/17 22:30 11/22/17 22:29 Zolpidem Tartrate (Ambien) 5 mg HSPRN PRN ORAL Insomnia 10/22/17 21:30 10/29/17 21:29 Allergies: Coded Allergies: NO KNOWN ALLERGIES (Verified Allergy, Unknown, 10/23/17) ROS Limited/Unobtainable: Yes Subjective 81 YO M admitted with altered mental status. Now probable sepsis. Cover for Int Med-Dr Newton. Worsening confusion Objective Last Vital Signs Date Time Temp Pulse Resp B/P (MAP) Pulse Ox O2 Delivery O2 Flow Rate FiO2 10/26/17 18:14 Room Air 2.0 21 10/26/17 17:58 115/62 10/26/17 17:40 98.1 93 20 98 98.1 Laboratory Tests Test 10/26/17 07:35 White Blood Count 9.1 K/UL (4.8-10.8) Red Blood Count 3.02 M/UL (4.70-6.10) L Hemoglobin 10.2 G/DL (14.2-18.0) L Hematocrit 29.4 % (42.0-52.0) L Mean Corpuscular Volume 97 FL (80-99) Mean Corpuscular Hemoglobin 33.7 PG (27.0-31.0) H Mean Corpuscular Hemoglobin Concent 34.6 G/DL (32.0-36.0) Red Cell Distribution Width 12.6 % (11.6-14.8) Platelet Count 286 K/UL (150-450) Mean Platelet Volume 6.0 FL (6.5-10.1) L Neutrophils (%) (Auto) 76.4 % (45.0-75.0) H Lymphocytes (%) (Auto) 8.7 % (20.0-45.0) L Monocytes (%) (Auto) 11.7 % (1.0-10.0) H Eosinophils (%) (Auto) 1.8 % (0.0-3.0) Basophils (%) (Auto) 1.4 % (0.0-2.0) Sodium Level 133 MMOL/L (136-145) L Potassium Level 5.9 MMOL/L (3.5-5.1) H Chloride Level 91 MMOL/L (98-107) L Carbon Dioxide Level 28 MMOL/L (21-32) Anion Gap 14 mmol/L (5-15) Blood Urea Nitrogen 100 mg/dL (7-18) H Creatinine 9.9 MG/DL (0.55-1.30) H Estimat Glomerular Filtration Rate mL/min (>60) Glucose Level 91 MG/DL (74-106) Calcium Level 8.8 MG/DL (8.5-10.1) Microbiology Date/Time Source Procedure Growth Status 10/26/17 11:30 Nasopharynx Influenza Types A,B Antigen (DONIS) - Final Complete Intake and Output 10/25/17 10/26/17 19:00 07:00 Intake Total 360 ml Balance 360 ml Intake Oral 360 ml # Bowel Movements 1 Objective General Appearance: WD/WN, no apparent distress, lethargic EENT: PERRL/EOMI, normal ENT inspection Neck: non-tender, normal alignment, supple, normal inspection Cardiovascular: normal peripheral pulses, normal rate, regular rhythm, no gallop/murmur, no JVD Respiratory/Chest: chest wall non-tender, lungs clear, normal breath sounds, no respiratory distress, no accessory muscle use Abdomen: normal bowel sounds, non tender, soft, no organomegaly, no mass Extremities: normal range of motion, non-tender 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 Left >Right. See neurology note (4) Pneumonia Assessment & Plan: Continue vanco and levaquin per ID (5) Diabetes mellitus, type II Assessment & Plan: Continue novolog sliding scale (6) ESRD (end stage renal disease) on dialysis (7) HTN (hypertension) Assessment & Plan: Continue lisinopril and lopressor (8) Subdural hematoma Assessment & Plan: Bilateral. Late subacute vs chronic. L>R Status: not improved SUNNY CARBAJAL Oct 26, 2017 18:45
--- NOTE | 2017-10-26 19:30 | Consultation ---
DATE OF CONSULTATION: 10/26/2017 NEUROLOGICAL CONSULTATION CONSULTING PHYSICIAN: Phillip Mahmood M.D. REQUESTING PHYSICIAN: Evin Newton M.D. HISTORY OF PRESENT ILLNESS: The patient is an 81-year-old gentleman seen in neurological consultation to evaluate the progressive changes in mental status. According to the patient's sister who was present during this examination, last month or two, he was increasingly confused, disoriented. He developed puffiness of his neck and face and generalized weakness. For this, he was brought to emergency room where he was described as being unintelligible with blood pressure 165/94 and heart rate of 102. Imaging studies included chest x-ray revealing hypoventilation, bibasilar atelectasis, possibly no interstitial infiltrates. Laboratory work with evidence of anemia, hemoglobin 11.1 and hematocrit 32.8. Chemistry panel revealed BUN of 27, creatinine 4.6, carbon dioxide of 35. CPK 407 with CK-MB of 3.8. Normal TSH, B12 and folate. Unremarkable lipid panel. Elevated troponin 0.086 and phosphorus of 6.5. His latest kidney function included BUN of 100 and creatinine 9.9. Since admission till present, there was no much of improvement, continued to be disoriented and confused. PAST MEDICAL HISTORY: The patient has history of hypertension and diabetes type 2. He is on pacemaker, has CHF and he has end-stage renal disease. MEDICATIONS: Treatment prior to admission included , amlodipine, Sensipar, folate, glyburide, losartan, meclizine p.r.n., omeprazole, Renvela, sildenafil and vitamin B complex. His current treatment also included nitroglycerin, p.r.n. morphine, clonidine, aspirin and levofloxacin. SOCIAL HISTORY: Lives at home with his daughter. REVIEW OF SYSTEMS: Unable to obtain due to patient's status. PHYSICAL EXAMINATION: GENERAL: Well-developed, short statured somewhat ill-appearing man with significant puffiness of the neck and face. HEENT: Head, normocephalic. There is no evidence of trauma. He has poor vision. EXTREMITIES: Upper and lower extremities without clubbing, cyanosis, or edema. There is some bruises on his knees and tenderness in the right wrist. Peripheral pulses 1+ and symmetric. MENTAL STATUS: The patient is awake, but has poor attention. He was unable to recognize his family members. He was able to follow only few simple commands given in Italian. Irritable exam. CRANIAL NERVE II: Pupils both responding to light and accommodation. Extraocular movement full range. CRANIAL NERVE V: Normal corneal responses. CRANIAL NERVE VII: No facial asymmetry. CRANIAL NERVE VIII: Significant hearing loss. CRANIAL NERVE IX THROUGH XII: Tongue is in midline. MOTOR EXAMINATION: Revealed diffuse rigidity in all upper lower extremities, although the patient was resisting to exam. No asymmetry noted. Deep tendon reflexes depressed bilaterally. Plantar response is mute. SENSORY EXAMINATION: Withdrawing to pin stimulation both arms and legs. Gait not tested. IMPRESSION: 1. The patient is an 81-year-old man with a severe toxic metabolic encephalopathy, most likely result of underlying uremia. Rule out uremia, probably sepsis/pneumonia. 2. Multiple stroke risk factors including hypertension and diabetes. 3. End-stage renal disease. 4. Pacemaker in place. RECOMMENDATION: The patient presents with persistent delirium most likely representing underlying toxic metabolic encephalopathy/uremia, sepsis and pneumonia and contributing. The patient to continue with IV fluids, antibiotics. Hemodialysis as per Renal. Get a CT of the brain without contrast. Observe any paroxysmal events. We will follow with you. Thank you for allowing me to see this interesting patient in neurological consultation. Phillip Mahmood M.D. DR: EMILEE JOB#: [id number] CC:
--- NOTE | 2017-10-26 23:12 | General Progress Note ---
Assessment/Plan Assessment/Plan encepalopathy zyprexa 2.5 mg qhs Subjective Date patient seen: Oct 25, 2017 Neurologic/Psychiatric: Reports: anxiety, depressed Allergies: Coded Allergies: NO KNOWN ALLERGIES (Verified Allergy, Unknown, 10/23/17) Objective Last 24 Hour Vital Signs Date Time Temp Pulse Resp B/P (MAP) Pulse Ox O2 Delivery O2 Flow Rate FiO2 10/26/17 21:00 91 127/57 10/26/17 20:00 98.1 93 20 127/57 97 Room Air 21 98.1 91 10/26/17 20:00 91 10/26/17 18:14 Room Air 2.0 21 10/26/17 17:58 115/62 10/26/17 17:40 98.1 93 20 115/62 98 98.1 10/26/17 16:00 88 10/26/17 15:32 98.2 94 21 110/50 98 98.2 10/26/17 12:30 Room Air 2.0 21 10/26/17 12:00 93 10/26/17 11:17 98.2 98 21 113/67 96 98.2 10/26/17 09:00 133/79 10/26/17 09:00 98 133/79 10/26/17 09:00 88 101 97 10/26/17 08:00 91 10/26/17 07:28 98.6 98 21 133/79 98 98.6 10/26/17 07:10 99 Room Air 21 10/26/17 07:10 Room Air 21 10/26/17 07:10 94 20 Room Air 21 10/26/17 04:00 93 10/26/17 04:00 113 20 126/66 98 Room Air 10/26/17 00:00 98.2 84 20 110/53 98 Room Air 98.2 10/26/17 00:00 85 Intake and Output 10/25/17 10/26/17 19:00 07:00 Intake Total 360 ml Balance 360 ml Intake Oral 360 ml # Bowel Movements 1 Laboratory Tests 10/26/17 07:35: White Blood Count 9.1, Red Blood Count 3.02L, Hemoglobin 10.2L, Hematocrit 29.4L , Mean Corpuscular Volume 97, Mean Corpuscular Hemoglobin 33.7H, Mean Corpuscular Hemoglobin Concent 34.6, Red Cell Distribution Width 12.6, Platelet Count 286, Mean Platelet Volume 6.0L, Neutrophils (%) (Auto) 76.4H, Lymphocytes (%) (Auto) 8.7L, Monocytes (%) (Auto) 11.7H, Eosinophils (%) (Auto) 1.8, Basophils (%) (Auto) 1.4, Sodium Level 133L, Potassium Level 5.9H, Chloride Level 91L, Carbon Dioxide Level 28, Anion Gap 14, Blood Urea Nitrogen 100H, Creatinine 9.9H, Estimat Glomerular Filtration Rate , Glucose Level 91, Calcium Level 8.8 Height (Feet): 5 Height (Inches): 0.00 Weight (Pounds): 132 General Appearance: no apparent distress, alert, confused Umair Matthews M.D. Oct 26, 2017 23:12
--- NOTE | 2017-10-26 23:12 | General Progress Note ---
Assessment/Plan Status: stable, progressing Assessment/Plan encepalopathy zyprexa 2.5 mg qhs Subjective Date patient seen: Oct 26, 2017 Neurologic/Psychiatric: Reports: anxiety, depressed, emotional problems Allergies: Coded Allergies: NO KNOWN ALLERGIES (Verified Allergy, Unknown, 10/23/17) Objective Last 24 Hour Vital Signs Date Time Temp Pulse Resp B/P (MAP) Pulse Ox O2 Delivery O2 Flow Rate FiO2 10/26/17 21:00 91 127/57 10/26/17 20:00 98.1 93 20 127/57 97 Room Air 21 98.1 91 10/26/17 20:00 91 10/26/17 18:14 Room Air 2.0 21 10/26/17 17:58 115/62 10/26/17 17:40 98.1 93 20 115/62 98 98.1 10/26/17 16:00 88 10/26/17 15:32 98.2 94 21 110/50 98 98.2 10/26/17 12:30 Room Air 2.0 21 10/26/17 12:00 93 10/26/17 11:17 98.2 98 21 113/67 96 98.2 10/26/17 09:00 133/79 10/26/17 09:00 98 133/79 10/26/17 09:00 88 101 97 10/26/17 08:00 91 10/26/17 07:28 98.6 98 21 133/79 98 98.6 10/26/17 07:10 99 Room Air 21 10/26/17 07:10 Room Air 21 10/26/17 07:10 94 20 Room Air 21 10/26/17 04:00 93 10/26/17 04:00 113 20 126/66 98 Room Air 10/26/17 00:00 98.2 84 20 110/53 98 Room Air 98.2 10/26/17 00:00 85 Intake and Output 10/25/17 10/26/17 19:00 07:00 Intake Total 360 ml Balance 360 ml Intake Oral 360 ml # Bowel Movements 1 Laboratory Tests 10/26/17 07:35: White Blood Count 9.1, Red Blood Count 3.02L, Hemoglobin 10.2L, Hematocrit 29.4L , Mean Corpuscular Volume 97, Mean Corpuscular Hemoglobin 33.7H, Mean Corpuscular Hemoglobin Concent 34.6, Red Cell Distribution Width 12.6, Platelet Count 286, Mean Platelet Volume 6.0L, Neutrophils (%) (Auto) 76.4H, Lymphocytes (%) (Auto) 8.7L, Monocytes (%) (Auto) 11.7H, Eosinophils (%) (Auto) 1.8, Basophils (%) (Auto) 1.4, Sodium Level 133L, Potassium Level 5.9H, Chloride Level 91L, Carbon Dioxide Level 28, Anion Gap 14, Blood Urea Nitrogen 100H, Creatinine 9.9H, Estimat Glomerular Filtration Rate , Glucose Level 91, Calcium Level 8.8 Height (Feet): 5 Height (Inches): 0.00 Weight (Pounds): 132 General Appearance: no apparent distress, alert, confused, agitated Umair Matthews M.D. Oct 26, 2017 23:12
[2017-10-27] VITALS: BP 143/94
[2017-10-27 04:00] VITALS: BP 141/76
[2017-10-27] MEDS: NovoLOG Insulin Flexpen SUBQ SCH ×4 (07:25→21:38)
[2017-10-27 08:00] VITALS: BP 128/55
[2017-10-27] MEDS: Docusate 100mg cap ORAL SCH ×3 (08:43→18:12)
[2017-10-27] MEDS: Lisinopril 2.5mg tab ORAL SCH ×2 (08:44→18:12)
[2017-10-27] MEDS: Metoprolol Tartrate 12.5mg TAB ORAL SCH ×2 (08:44→21:00)
[2017-10-27] MEDS: Renvela 800mg Pkt ORAL SCH ×3 (08:44→18:12)
[2017-10-27] MEDS: Aspirin Baby 81mg ORAL SCH (08:44)
[2017-10-27] MEDS: Heparin 5000 units/ml inj SUBQ SCH (08:46)
[2017-10-27] MEDS ORDERED: Vancomycin 1gm in D5W 275ml IVPB ONE (11:00)
--- NOTE | 2017-10-27 11:42 | Neurology Progress Note ---
Interim History Interim History ROS Limited/Unobtainable: No Complaints: feel better Events: became coherent Objective Physical Exam Last Vital Signs Date Time Temp Pulse Resp B/P (MAP) Pulse Ox O2 Delivery O2 Flow Rate FiO2 10/27/17 08:45 88 126/76 10/27/17 08:00 98.0 18 98 Room Air 21 98.0 10/26/17 18:14 2.0 Laboratory Tests Test 10/27/17 08:30 Troponin I 0.018 ng/mL (0.000-0.056) Random Vancomycin Level 11.8 ug/mL General: well developed, well nourished, no acute distress Head: normocophalic Neck: no rigidity EENT: benign Neurologic Exam Mental Status: awake, alert, other - ox2, coherent, follows command Speech: normal speech, no dysarthia Language: normal language, no aphasia Cranial Nerve II: fundus normal, visual salazar, no papilledema Cranial Nerves III, IV, : PERRLA, EOMI, pupils Cranial Nerve V: normal facial sensations, temporales function normal, masseters function normal, pterygoids function normal Cranial Nerve VII: no facial asymmetry, normal facial expressions Cranial Nerve VIII: normal hearing, no nystagmus, other - poor hearing Cranial Nerve IX: normal palate elevation Cranial Nerve X: no voice hoarseness Cranial Nerve XI: SCM symmetric Cranial Nerve XII: tongue midline Motor System: no involuntary movement, no muscle wasting Sensory: normal pinprick Coordination: normal finger to nose bilaterally Deep Tendon Reflexes: 1+ bicep (L), 1+ bicep (R), 1+ tricep (L), 1+ tricep (R) , 1+ brachioradialis (L), 1+ brachioradialis (R), 1+ knee (L), 1+ knee (R), 1+ ankle (L), 1+ ankle (R) Reflexes: flexor plantar (L), flexor plantar (R) Gait: other - slow wabbly Impression/Recommendations Problems: (1) ESRD (end stage renal disease) on dialysis (2) Pacemaker (3) Diabetes mellitus, type II (4) Diabetes mellitus (5) Delirium (6) chronic bifrontal SDH Status: doing well, stable Recommendations #[id number] improved SDH is chronic, no surgery necessary pt/ot ADRIAN LAM Oct 27, 2017 11:42
--- NOTE | 2017-10-27 11:53 | Cardiology Progress Note ---
Assessment/Plan Assessment/Plan 1. encephalopathy chroncic subdural hematomas 2. End-stage renal disease, on hemodialysis. 3. Abnormal cardiac enzymes of questionable significance in light of the renal insufficiency requiring dialysis. 4. Diabetes mellitus. 5. Hypertension. 6. History of hyperlipidemia. apparently become more confused over jluis week end ct performed: Positive for bilateral convexity late subacute or chronic subdural hematomas, that on the left larger than that on the right. There is mild associated mass effect as described. 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 echo no reprot yet cv stable for med surg but need neuro input pacer interrogated function seem fine Subjective Cardiovascular: Denies: chest pain, lightheadedness, palpitations Respiratory: Denies: shortness of breath Gastrointestinal/Abdominal: Denies: abdominal pain Genitourinary: Denies: burning Subjective fully awake and responsive sitting up in chair sitter and dtr at bedside Objective Last 24 Hour Vital Signs Date Time Temp Pulse Resp B/P (MAP) Pulse Ox O2 Delivery O2 Flow Rate FiO2 10/27/17 09:10 74 10/27/17 09:05 78 10/27/17 09:00 71 10/27/17 08:45 88 126/76 10/27/17 08:44 141/76 10/27/17 08:44 96 141/76 10/27/17 08:00 98.0 77 18 128/55 98 Room Air 21 98.0 10/27/17 07:43 96 Room Air 10/27/17 07:43 Room Air 21 10/27/17 07:43 80 20 Room Air 21 10/27/17 04:00 97.3 90 20 141/76 96 Room Air 21 97.3 10/27/17 04:00 96 10/27/17 00:00 97.3 91 20 143/94 99 Room Air 21 97.3 10/27/17 00:00 96 10/26/17 21:00 91 127/57 10/26/17 20:00 98.1 93 20 127/57 97 Room Air 21 98.1 91 10/26/17 20:00 92 10/26/17 20:00 91 10/26/17 19:11 Room Air 21 10/26/17 19:11 87 20 Room Air 21 10/26/17 19:11 98 Room Air 21 10/26/17 18:14 Room Air 2.0 21 10/26/17 17:58 115/62 10/26/17 17:40 98.1 93 20 115/62 98 98.1 10/26/17 16:00 88 10/26/17 15:32 98.2 94 21 110/50 98 98.2 10/26/17 12:30 Room Air 2.0 21 10/26/17 12:00 93 General Appearance: alert Neck: supple Cardiovascular: normal rate, regular rhythm Abdomen: normal bowel sounds, non tender, soft Extremities: non-tender, no swelling Intake and Output 10/26/17 10/27/17 19:00 07:00 Intake Total 340 ml 100 ml Output Total 2200 ml Balance -1860 ml 100 ml Intake Oral 340 ml 100 ml Hemodialysis UF 2200 ml Laboratory Tests Test 10/27/17 08:30 Troponin I 0.018 ng/mL (0.000-0.056) Random Vancomycin Level 11.8 ug/mL Microbiology Date/Time Source Procedure Growth Status 10/26/17 11:30 Nasopharynx Influenza Types A,B Antigen (DONIS) - Final Complete CHRISTINA KU Oct 27, 2017 11:53
[2017-10-27 12:00] VITALS: BP 141/78
--- NOTE | 2017-10-27 12:51 | Pulmonology Progress Note ---
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 There is mild associated mass effect as described. dc heparin sq and aspirin, d/w dr Walsh. Subjective ROS Limited/Unobtainable: No Constitutional: Reports: no symptoms HEENT: Repors: no symptoms Respiratory: Reports: no symptoms Cardiovascular: Reports: no symptoms Allergies: Coded Allergies: NO KNOWN ALLERGIES (Verified Allergy, Unknown, 10/23/17) Objective Last 24 Hour Vital Signs Date Time Temp Pulse Resp B/P (MAP) Pulse Ox O2 Delivery O2 Flow Rate FiO2 10/27/17 09:10 74 10/27/17 09:05 78 10/27/17 09:00 71 10/27/17 08:45 88 126/76 10/27/17 08:44 141/76 10/27/17 08:44 96 141/76 10/27/17 08:00 98.0 77 18 128/55 98 Room Air 21 98.0 10/27/17 07:43 96 Room Air 10/27/17 07:43 Room Air 21 10/27/17 07:43 80 20 Room Air 21 10/27/17 04:00 97.3 90 20 141/76 96 Room Air 21 97.3 10/27/17 04:00 96 10/27/17 00:00 97.3 91 20 143/94 99 Room Air 21 97.3 10/27/17 00:00 96 10/26/17 21:00 91 127/57 10/26/17 20:00 98.1 93 20 127/57 97 Room Air 21 98.1 91 10/26/17 20:00 92 10/26/17 20:00 91 10/26/17 19:11 Room Air 21 10/26/17 19:11 87 20 Room Air 21 10/26/17 19:11 98 Room Air 21 10/26/17 18:14 Room Air 2.0 21 10/26/17 17:58 115/62 10/26/17 17:40 98.1 93 20 115/62 98 98.1 10/26/17 16:00 88 10/26/17 15:32 98.2 94 21 110/50 98 98.2 Intake and Output 10/26/17 10/27/17 19:00 07:00 Intake Total 340 ml 100 ml Output Total 2200 ml Balance -1860 ml 100 ml Intake Oral 340 ml 100 ml Hemodialysis UF 2200 ml Objective General Appearance: WD/WN HEENT: normocephalic, atraumatic, anicteric Respiratory/Chest: chest wall non-tender, rhonchi Breasts: no masses Cardiovascular: normal peripheral pulses Abdomen: normal bowel sounds Genitourinary: normal external genitalia Microbiology Date/Time Source Procedure Growth Status 10/26/17 11:30 Nasopharynx Influenza Types A,B Antigen (DONIS) - Final Complete Laboratory Tests 10/27/17 08:30: Troponin I 0.018, Random Vancomycin Level 11.8 Current Medications Medications (Trade) Dose Ordered Sig/Tanya Route PRN Reason Start Time Stop Time Status Last Admin Dose Admin Acetaminophen (Tylenol) 650 mg Q4H PRN ORAL Fever/Headache/Mild Pain 10/24/17 21:30 11/23/17 21:29 Albuterol/ Ipratropium (Albuterol/ Ipratropium) 3 ml Q6HRT PRN HHN dyspnea 10/22/17 21:30 10/27/17 21:29 Amlodipine Besylate (Norvasc) 2.5 mg DAILY ORAL 10/23/17 09:00 11/22/17 08:59 10/27/17 08:45 Aspirin (ASA) 162 mg DAILY ORAL 10/23/17 12:00 11/22/17 11:59 10/27/17 08:44 Clonidine HCl (Catapres Tab) 0.1 mg Q4H PRN ORAL For Blood Pressure 160 and up 10/23/17 13:30 11/22/17 13:29 Dextrose (Dextrose 50%) STAT PRN IV Hypoglycemia 10/22/17 21:30 11/21/17 21:29 Docusate Sodium (Colace) 100 mg THREE TIMES A DAY ORAL 10/25/17 18:00 11/24/17 17:59 10/27/17 08:43 Heparin Sodium (Porcine) (Heparin 5000 units/ml) 5,000 units EVERY 12 HOURS SUBQ 10/23/17 09:00 11/22/17 08:59 10/27/17 08:46 Insulin Aspart (NovoLOG) BEFORE MEALS AND HS SUBQ 10/23/17 06:30 11/22/17 06:29 10/27/17 12:30 Levofloxacin 100 ml @ 100 mls/hr Q48H IVPB 10/24/17 00:00 10/31/17 00:00 10/25/17 23:57 Lisinopril (Zestril) 2.5 mg BID ORAL 10/23/17 18:00 11/22/17 17:59 10/27/17 08:44 Metoprolol Tartrate (Lopressor) 12.5 mg Q12HR ORAL 10/23/17 21:00 11/22/17 20:59 10/27/17 08:44 Morphine Sulfate (Morphine Sulfate) 1 mg EVERY 4 HOURS PRN IVP For Pain 10/22/17 21:30 10/29/17 21:29 Nitroglycerin (Ntg) 1 patch QPM TDERMAL 10/23/17 17:00 11/22/17 16:59 10/26/17 17:58 Ondansetron HCl (Zofran) 4 mg Q6H PRN IVP Nausea & Vomiting 10/22/17 21:30 11/21/17 21:29 Polyethylene Glycol (Miralax) 17 gm HSPRN PRN ORAL Constipation 10/22/17 21:30 11/21/17 21:29 Sevelamer Carbonate (Renvela) 1,600 mg THREE TIMES A DAY ORAL 10/24/17 13:00 11/23/17 12:59 10/27/17 08:44 Vancomycin HCl (Vanco rx to dose) 1 ea DAILY PRN MISC Per rx protocol 10/23/17 22:30 11/22/17 22:29 Zolpidem Tartrate (Ambien) 5 mg HSPRN PRN ORAL Insomnia 10/22/17 21:30 10/29/17 21:29 Ginny Zhao MD Oct 27, 2017 12:51
--- NOTE | 2017-10-27 14:58 | Nephrology Progress Note ---
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 There is mild associated mass effect as described. Subjective ROS Limited/Unobtainable: No Constitutional: Reports: malaise Objective Objective Last 24 Hour Vital Signs Date Time Temp Pulse Resp B/P (MAP) Pulse Ox O2 Delivery O2 Flow Rate FiO2 10/27/17 12:00 97.7 74 20 141/78 98 Room Air 21 97.7 10/27/17 09:10 74 10/27/17 09:05 78 10/27/17 09:00 71 10/27/17 08:45 88 126/76 10/27/17 08:44 141/76 10/27/17 08:44 96 141/76 10/27/17 08:00 98.0 77 18 128/55 98 Room Air 21 98.0 10/27/17 07:43 96 Room Air 10/27/17 07:43 Room Air 21 10/27/17 07:43 80 20 Room Air 21 10/27/17 04:00 97.3 90 20 141/76 96 Room Air 21 97.3 10/27/17 04:00 96 10/27/17 00:00 97.3 91 20 143/94 99 Room Air 21 97.3 10/27/17 00:00 96 10/26/17 21:00 91 127/57 10/26/17 20:00 98.1 93 20 127/57 97 Room Air 21 98.1 91 10/26/17 20:00 92 10/26/17 20:00 91 10/26/17 19:11 Room Air 21 10/26/17 19:11 87 20 Room Air 21 10/26/17 19:11 98 Room Air 21 10/26/17 18:14 Room Air 2.0 21 10/26/17 17:58 115/62 10/26/17 17:40 98.1 93 20 115/62 98 98.1 10/26/17 16:00 88 10/26/17 15:32 98.2 94 21 110/50 98 98.2 Intake and Output 10/26/17 10/27/17 19:00 07:00 Intake Total 340 ml 100 ml Output Total 2200 ml Balance -1860 ml 100 ml Intake Oral 340 ml 100 ml Hemodialysis UF 2200 ml Laboratory Tests 10/27/17 08:30: Troponin I 0.018, Random Vancomycin Level 11.8 Height (Feet): 5 Height (Inches): 0.00 Weight (Pounds): 143 General Appearance: no apparent distress Cardiovascular: normal rate Respiratory/Chest: decreased breath sounds Abdomen: soft MELY SINGH Oct 27, 2017 14:58
[2017-10-27 16:00] VITALS: BP 123/68
[2017-10-27] MEDS: Nitroglycerin Patch 0.4mg TDERMAL SCH (16:38)
--- NOTE | 2017-10-27 17:35 | Cardiology Report ---
APPROVED REPORT EXAM: Two-dimensional and M-mode echocardiogram with Doppler and color Doppler. INDICATION Altered mental status M-Mode DIMENSIONS IVSd0.8 (0.7-1.1cm)Left Atrium (MM)3.1 (1.6-4.0cm) LVDd4.3 (3.5-5.6cm)Aortic Root2.3 (2.0-3.7cm) PWd0.9 (0.7-1.1cm)Aortic Cusp Exc.1.7 (1.5-2.0cm) LVDs2.5 (2.5-4.0cm) PWs1.2 cm Technically difficult study due to poor acoustical windows. Normal left ventricular chamber size, systolic function and wall motion. Left ventricular ejection fraction estimated to be 60-65 %. No evidence of left ventricular hypertrophy. No evidence of pericardial or pleural effusion. All other cardiac chamber sizes are within normal limits. Focal aortic valve sclerosis with adequate cusp excursion. Thickened mitral valve leaflets with normal excursion. Mild mitral annulus and aortic root calcification. Pulmonic valve is well visualized. Normal tricuspid valve structure. IVC is normal in size and collapsible with respiration. Pacemaker wire present in the right side chambers. A color flow and spectral Doppler study was performed and revealed: No aortic regurgitation. No mitral regurgitation. Mitral diastolic velocities suggest reduced left ventricular relaxation c/w diastolic dysfunction grade 1. Moderate tricuspid regurgitation. Tricuspid systolic velocities suggests peak right ventricular systolic pressure of 47mmHg Consistent with mild consistent pulmonary hypertension. Pulmonic regurgitation present.
--- NOTE | 2017-10-27 17:36 | Cardiology Report ---
APPROVED REPORT EKG Measurement Heart [id number] Normal sinus rhythm Low voltage QRS Borderline ECG
--- NOTE | 2017-10-27 19:11 | Internal Med Progress Note ---
Subjective Date of Service: Oct 27, 2017 Physician Name Sunny Olivarez Attending Physician Evin Newton MD Current Medications Medications (Trade) Dose Ordered Sig/Tanya Route PRN Reason Start Time Stop Time Status Last Admin Dose Admin Acetaminophen (Tylenol) 650 mg Q4H PRN ORAL Fever/Headache/Mild Pain 10/24/17 21:30 11/23/17 21:29 Albuterol/ Ipratropium (Albuterol/ Ipratropium) 3 ml Q6HRT PRN HHN dyspnea 10/22/17 21:30 10/27/17 21:29 Amlodipine Besylate (Norvasc) 2.5 mg DAILY ORAL 10/23/17 09:00 11/22/17 08:59 10/27/17 08:45 Clonidine HCl (Catapres Tab) 0.1 mg Q4H PRN ORAL For Blood Pressure 160 and up 10/23/17 13:30 11/22/17 13:29 Dextrose (Dextrose 50%) STAT PRN IV Hypoglycemia 10/22/17 21:30 11/21/17 21:29 Docusate Sodium (Colace) 100 mg THREE TIMES A DAY ORAL 10/25/17 18:00 11/24/17 17:59 10/27/17 18:12 Insulin Aspart (NovoLOG) BEFORE MEALS AND HS SUBQ 10/23/17 06:30 11/22/17 06:29 10/27/17 16:39 Levofloxacin 100 ml @ 100 mls/hr Q48H IVPB 10/24/17 00:00 10/31/17 00:00 10/25/17 23:57 Lisinopril (Zestril) 2.5 mg BID ORAL 10/23/17 18:00 11/22/17 17:59 10/27/17 18:12 Metoprolol Tartrate (Lopressor) 12.5 mg Q12HR ORAL 10/23/17 21:00 11/22/17 20:59 10/27/17 08:44 Morphine Sulfate (Morphine Sulfate) 1 mg EVERY 4 HOURS PRN IVP For Pain 10/22/17 21:30 10/29/17 21:29 Nitroglycerin (Ntg) 1 patch QPM TDERMAL 10/23/17 17:00 11/22/17 16:59 10/27/17 16:38 Ondansetron HCl (Zofran) 4 mg Q6H PRN IVP Nausea & Vomiting 10/22/17 21:30 11/21/17 21:29 Polyethylene Glycol (Miralax) 17 gm HSPRN PRN ORAL Constipation 10/22/17 21:30 11/21/17 21:29 Sevelamer Carbonate (Renvela) 1,600 mg THREE TIMES A DAY ORAL 10/24/17 13:00 11/23/17 12:59 10/27/17 18:12 Vancomycin HCl (Vanco rx to dose) 1 ea DAILY PRN MISC Per rx protocol 10/23/17 22:30 11/22/17 22:29 Zolpidem Tartrate (Ambien) 5 mg HSPRN PRN ORAL Insomnia 10/22/17 21:30 10/29/17 21:29 Allergies: Coded Allergies: NO KNOWN ALLERGIES (Verified Allergy, Unknown, 10/23/17) ROS Limited/Unobtainable: Yes Subjective 81 YO M admitted with altered mental status. Now probable sepsis. Cover for Int Med-Dr Newton. Worsening confusion Objective Last Vital Signs Date Time Temp Pulse Resp B/P (MAP) Pulse Ox O2 Delivery O2 Flow Rate FiO2 10/27/17 18:12 123/56 10/27/17 16:00 97.5 70 20 98 Room Air 21 97.5 10/26/17 18:14 2.0 Laboratory Tests Test 10/27/17 08:30 Troponin I 0.018 ng/mL (0.000-0.056) Random Vancomycin Level 11.8 ug/mL Microbiology Date/Time Source Procedure Growth Status 10/26/17 11:30 Nasopharynx Influenza Types A,B Antigen (DONIS) - Final Complete Intake and Output 10/26/17 10/27/17 19:00 07:00 Intake Total 340 ml 100 ml Output Total 2200 ml Balance -1860 ml 100 ml Intake Oral 340 ml 100 ml Hemodialysis UF 2200 ml Objective General Appearance: WD/WN, no apparent distress, lethargic EENT: PERRL/EOMI, normal ENT inspection Neck: non-tender, normal alignment, supple, normal inspection Cardiovascular: normal peripheral pulses, normal rate, regular rhythm, no gallop/murmur, no JVD Respiratory/Chest: chest wall non-tender, lungs clear, normal breath sounds, no respiratory distress, no accessory muscle use Abdomen: normal bowel sounds, non tender, soft, no organomegaly, no mass Extremities: normal range of motion, non-tender Neurologic: assessment director II-XII grossly normal Skin: normal pigmentation, warm/dry Assessment/Plan Problem List: (1) Elevated troponin Assessment & Plan: See cardiology note. 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 Left >Right. See neurology note (4) Pneumonia Assessment & Plan: Continue vanco and levaquin per ID (5) Diabetes mellitus, type II Assessment & Plan: Continue novolog sliding scale (6) ESRD (end stage renal disease) on dialysis (7) HTN (hypertension) Assessment & Plan: Continue lisinopril and lopressor (8) Subdural hematoma Assessment & Plan: Bilateral. Late subacute vs chronic. L>R Status: not improved Assessment/Plan Discussed with patient learning coordinator, Dr Angel. States patient with frequent falls due to alcohol abuse. Recommends longterm facility placement. Attempted to call patient [email or web address] message. SUNNY OLIVAREZ Oct 27, 2017 19:11
[2017-10-27 20:00] VITALS: BP 108/60
[2017-10-28] VITALS: BP 108/60
[2017-10-28 04:00] VITALS: BP 136/66
[2017-10-28] MEDS: NovoLOG Insulin Flexpen SUBQ SCH ×3 (06:29→17:04)
[2017-10-28 08:00] VITALS: BP 121/63
[2017-10-28 08:16] LABS: BASOPHILS % (AUTO) 0.9 % (0.0-2.0); EOSINOPHILS % (AUTO) 1.3 % (0.0-3.0); HEMATOCRIT 28.2 % (42.0-52.0); HEMOGLOBIN 9.3 G/DL (14.2-18.0); MEAN CORPUSCULAR VOLUME 99 FL (80-99); MONOCYTES % (AUTO) 9.2 % (1.0-10.0); NEUTROPHILS % (AUTO) 81.6 % (45.0-75.0); PLATELET COUNT 296 K/UL (150-450); RED BLOOD COUNT 2.86 M/UL (4.70-6.10); RED CELL DISTRIBUTION WIDTH 12.8 % (11.6-14.8); WHITE BLOOD COUNT 7.8 K/UL (4.8-10.8)
[2017-10-28 08:39] LABS: ANION GAP 12 mmol/L (5-15); BLOOD UREA NITROGEN 92 mg/dL (7-18); CALCIUM 8.2 MG/DL (8.5-10.1); CARBON DIOXIDE 25 MMOL/L (21-32); CHLORIDE 95 MMOL/L (98-107); CREATININE 8.8 MG/DL (0.55-1.30); POTASSIUM 5.7 MMOL/L (3.5-5.1); SODIUM 132 MMOL/L (136-145)
--- NOTE | 2017-10-28 09:53 | Nephrology Progress Note ---
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 There is mild associated mass effect as described. Subjective ROS Limited/Unobtainable: No Constitutional: Reports: malaise Objective Objective Last 24 Hour Vital Signs Date Time Temp Pulse Resp B/P (MAP) Pulse Ox O2 Delivery O2 Flow Rate FiO2 10/28/17 09:00 76 87 92 10/28/17 08:00 97.7 76 20 121/63 99 97.7 10/28/17 06:30 96 Room Air 10/28/17 06:30 Room Air 10/28/17 06:30 76 18 Room Air 10/28/17 04:00 97.0 75 20 136/66 100 Room Air 97.0 10/28/17 04:00 76 10/28/17 00:00 73 10/28/17 00:00 98.5 73 21 108/60 98 Room Air 98.5 10/27/17 21:00 75 87 82 10/27/17 21:00 73 108/60 10/27/17 20:00 70 20 Room Air 21 10/27/17 20:00 Room Air 21 10/27/17 20:00 98.7 73 22 108/60 97 Room Air 98.7 10/27/17 20:00 97 Room Air 21 10/27/17 18:12 123/56 10/27/17 16:38 123/56 10/27/17 16:00 97.5 70 20 123/68 98 Room Air 21 97.5 10/27/17 16:00 62 10/27/17 12:00 97.7 74 20 141/78 98 Room Air 21 97.7 10/27/17 12:00 62 Intake and Output 10/27/17 10/28/17 19:00 07:00 Intake Total 270 ml Output Total 50 ml 0 ml Balance 220 ml 0 ml Intake Oral 270 ml Output Urine Total 50 ml 0 ml # Bowel Movements 2 Laboratory Tests 10/28/17 07:00: White Blood Count 7.8, Red Blood Count 2.86L, Hemoglobin 9.3L, Hematocrit 28.2L , Mean Corpuscular Volume 99, Mean Corpuscular Hemoglobin 32.7H, Mean Corpuscular Hemoglobin Concent 33.1, Red Cell Distribution Width 12.8, Platelet Count 296, Mean Platelet Volume 5.5L, Neutrophils (%) (Auto) 81.6H, Lymphocytes (%) (Auto) 7.0L, Monocytes (%) (Auto) 9.2, Eosinophils (%) (Auto) 1.3, Basophils (%) (Auto) 0.9, Sodium Level 132L, Potassium Level 5.7H, Chloride Level 95L, Carbon Dioxide Level 25, Anion Gap 12, Blood Urea Nitrogen 92H, Creatinine 8.8H, Estimat Glomerular Filtration Rate , Glucose Level 120H, Calcium Level 8.2L Height (Feet): 5 Height (Inches): 0.00 Weight (Pounds): 142 General Appearance: no apparent distress Objective no change MELY SINGH Oct 28, 2017 09:53
--- NOTE | 2017-10-28 11:43 | Infectious Diseases Prog Note ---
Assessment/Plan Assessment/Plan ASSESSMENT: The patient is an 81-year-old male with: Low-grade fever, resolved Hypotension, SP Probable sepsis. Probable pneumonia (the patient is complaining of cough) Chest x-ray shows bibasilar atelectasis versus infiltrate influenza sc neg sp cx ordered, not collected End-stage renal disease, on hemodialysis. Hypertension. Diabetes mellitus. Pacemaker placement PLAN: Continue empiric vancomycin and Levaquin d# 6/7 Monitor CBC Monitor BMP f/u cx Monitor chest x-ray Aspiration precautions Subjective Allergies: Coded Allergies: NO KNOWN ALLERGIES (Verified Allergy, Unknown, 10/23/17) Subjective afebrile no leukocytosis At RA Objective Vital Signs Last 24 Hour Vital Signs Date Time Temp Pulse Resp B/P (MAP) Pulse Ox O2 Delivery O2 Flow Rate FiO2 10/28/17 09:25 Room Air 10/28/17 09:00 76 87 92 10/28/17 08:00 72 10/28/17 08:00 97.7 76 20 121/63 99 97.7 10/28/17 06:30 96 Room Air 10/28/17 06:30 Room Air 10/28/17 06:30 76 18 Room Air 10/28/17 04:00 97.0 75 20 136/66 100 Room Air 97.0 10/28/17 04:00 76 10/28/17 00:00 73 10/28/17 00:00 98.5 73 21 108/60 98 Room Air 98.5 10/27/17 21:00 75 87 82 10/27/17 21:00 73 108/60 10/27/17 20:00 70 20 Room Air 21 10/27/17 20:00 Room Air 21 10/27/17 20:00 98.7 73 22 108/60 97 Room Air 98.7 10/27/17 20:00 97 Room Air 21 10/27/17 18:12 123/56 10/27/17 16:38 123/56 10/27/17 16:00 97.5 70 20 123/68 98 Room Air 21 97.5 10/27/17 16:00 62 10/27/17 12:00 97.7 74 20 141/78 98 Room Air 21 97.7 10/27/17 12:00 62 Height (Feet): 5 Height (Inches): 0.00 Weight (Pounds): 142 Objective General Appearance: WD/WN, no apparent distress, lethargic EENT: PERRL/EOMI, normal ENT inspection Neck: non-tender, normal alignment, supple, normal inspection Cardiovascular: normal peripheral pulses, normal rate, regular rhythm, no gallop/murmur, no JVD Respiratory/Chest: chest wall non-tender, lungs clear, normal breath sounds, no respiratory distress, no accessory muscle use Abdomen: normal bowel sounds, non tender, soft, no organomegaly, no mass Extremities: normal range of motion, non-tender Neurologic: information manager II-XII grossly normal Skin: normal pigmentation, warm/dry Microbiology Date/Time Source Procedure Growth Status 10/26/17 11:30 Nasopharynx Influenza Types A,B Antigen (DONIS) - Final Complete Laboratory Tests Test 10/28/17 07:00 White Blood Count 7.8 K/UL (4.8-10.8) Red Blood Count 2.86 M/UL (4.70-6.10) L Hemoglobin 9.3 G/DL (14.2-18.0) L Hematocrit 28.2 % (42.0-52.0) L Mean Corpuscular Volume 99 FL (80-99) Mean Corpuscular Hemoglobin 32.7 PG (27.0-31.0) H Mean Corpuscular Hemoglobin Concent 33.1 G/DL (32.0-36.0) Red Cell Distribution Width 12.8 % (11.6-14.8) Platelet Count 296 K/UL (150-450) Mean Platelet Volume 5.5 FL (6.5-10.1) L Neutrophils (%) (Auto) 81.6 % (45.0-75.0) H Lymphocytes (%) (Auto) 7.0 % (20.0-45.0) L Monocytes (%) (Auto) 9.2 % (1.0-10.0) Eosinophils (%) (Auto) 1.3 % (0.0-3.0) Basophils (%) (Auto) 0.9 % (0.0-2.0) Sodium Level 132 MMOL/L (136-145) L Potassium Level 5.7 MMOL/L (3.5-5.1) H Chloride Level 95 MMOL/L (98-107) L Carbon Dioxide Level 25 MMOL/L (21-32) Anion Gap 12 mmol/L (5-15) Blood Urea Nitrogen 92 mg/dL (7-18) H Creatinine 8.8 MG/DL (0.55-1.30) H Estimat Glomerular Filtration Rate mL/min (>60) Glucose Level 120 MG/DL (74-106) H Calcium Level 8.2 MG/DL (8.5-10.1) L Current Medications Medications (Trade) Dose Ordered Sig/Tanya Route PRN Reason Start Time Stop Time Status Last Admin Dose Admin Acetaminophen (Tylenol) 650 mg Q4H PRN ORAL Fever/Headache/Mild Pain 10/24/17 21:30 11/23/17 21:29 Amlodipine Besylate (Norvasc) 2.5 mg DAILY ORAL 10/23/17 09:00 11/22/17 08:59 10/27/17 08:45 Clonidine HCl (Catapres Tab) 0.1 mg Q4H PRN ORAL For Blood Pressure 160 and up 10/23/17 13:30 11/22/17 13:29 Dextrose (Dextrose 50%) STAT PRN IV Hypoglycemia 10/22/17 21:30 11/21/17 21:29 Docusate Sodium (Colace) 100 mg THREE TIMES A DAY ORAL 10/25/17 18:00 11/24/17 17:59 10/27/17 18:12 Insulin Aspart (NovoLOG) BEFORE MEALS AND HS SUBQ 10/23/17 06:30 11/22/17 06:29 10/28/17 06:29 Levofloxacin 100 ml @ 100 mls/hr Q48H IVPB 10/24/17 00:00 10/31/17 00:00 10/28/17 00:13 Lisinopril (Zestril) 2.5 mg BID ORAL 10/23/17 18:00 11/22/17 17:59 10/27/17 18:12 Metoprolol Tartrate (Lopressor) 12.5 mg Q12HR ORAL 10/23/17 21:00 11/22/17 20:59 10/27/17 08:44 Morphine Sulfate (Morphine Sulfate) 1 mg EVERY 4 HOURS PRN IVP For Pain 10/22/17 21:30 10/29/17 21:29 Nitroglycerin (Ntg) 1 patch QPM TDERMAL 3/9/18 17:00 11/22/17 16:59 10/27/17 16:38 Ondansetron HCl (Zofran) 4 mg Q6H PRN IVP Nausea & Vomiting 10/22/17 21:30 11/21/17 21:29 Polyethylene Glycol (Miralax) 17 gm HSPRN PRN ORAL Constipation 10/22/17 21:30 11/21/17 21:29 Sevelamer Carbonate (Renvela) 1,600 mg THREE TIMES A DAY ORAL 10/24/17 13:00 11/23/17 12:59 10/27/17 18:12 Vancomycin HCl (Vanco rx to dose) 1 ea DAILY PRN MISC Per rx protocol 10/23/17 22:30 11/22/17 22:29 Zolpidem Tartrate (Ambien) 5 mg HSPRN PRN ORAL Insomnia 10/22/17 21:30 10/29/17 21:29 Patti Pelaez M.D. Oct 28, 2017 11:43
[2017-10-28 12:00] VITALS: BP 120/62
--- NOTE | 2017-10-28 13:10 | Internal Med Progress Note ---
Subjective Date of Service: Oct 28, 2017 Physician Name Sunny Olivarez Attending Physician Evin Newton MD Current Medications Medications (Trade) Dose Ordered Sig/Tanya Route PRN Reason Start Time Stop Time Status Last Admin Dose Admin Acetaminophen (Tylenol) 650 mg Q4H PRN ORAL Fever/Headache/Mild Pain 10/24/17 21:30 11/23/17 21:29 Amlodipine Besylate (Norvasc) 2.5 mg DAILY ORAL 10/23/17 09:00 11/22/17 08:59 10/27/17 08:45 Clonidine HCl (Catapres Tab) 0.1 mg Q4H PRN ORAL For Blood Pressure 160 and up 10/23/17 13:30 11/22/17 13:29 Dextrose (Dextrose 50%) STAT PRN IV Hypoglycemia 10/22/17 21:30 11/21/17 21:29 Docusate Sodium (Colace) 100 mg THREE TIMES A DAY ORAL 10/25/17 18:00 11/24/17 17:59 10/27/17 18:12 Insulin Aspart (NovoLOG) BEFORE MEALS AND HS SUBQ 10/23/17 06:30 11/22/17 06:29 10/28/17 06:29 Lisinopril (Zestril) 2.5 mg BID ORAL 10/23/17 18:00 11/22/17 17:59 10/27/17 18:12 Metoprolol Tartrate (Lopressor) 12.5 mg Q12HR ORAL 10/23/17 21:00 11/22/17 20:59 10/27/17 08:44 Morphine Sulfate (Morphine Sulfate) 1 mg EVERY 4 HOURS PRN IVP For Pain 10/22/17 21:30 10/29/17 21:29 Nitroglycerin (Ntg) 1 patch QPM TDERMAL 10/23/17 17:00 11/22/17 16:59 10/27/17 16:38 Ondansetron HCl (Zofran) 4 mg Q6H PRN IVP Nausea & Vomiting 10/22/17 21:30 11/21/17 21:29 Polyethylene Glycol (Miralax) 17 gm HSPRN PRN ORAL Constipation 10/22/17 21:30 11/21/17 21:29 Sevelamer Carbonate (Renvela) 1,600 mg THREE TIMES A DAY ORAL 10/24/17 13:00 4/9/18 12:59 10/27/17 18:12 Vancomycin HCl (Vanco rx to dose) 1 ea DAILY PRN MISC Per rx protocol 10/23/17 22:30 11/22/17 22:29 Zolpidem Tartrate (Ambien) 5 mg HSPRN PRN ORAL Insomnia 10/22/17 21:30 10/29/17 21:29 Allergies: Coded Allergies: NO KNOWN ALLERGIES (Verified Allergy, Unknown, 10/23/17) ROS Limited/Unobtainable: No Constitutional: Reports: no symptoms HEENT: Reports: no symptoms Cardiovascular: Reports: no symptoms Respiratory: Reports: no symptoms Gastrointestinal/Abdominal: Reports: no symptoms Genitourinary: Reports: no symptoms Neurologic/Psychiatric: Reports: no symptoms Subjective 81 YO M admitted with altered mental status. Now probable sepsis. Cover for [facility] Med-Dr Newton. Still confused. Await placement at [facility] facility. Objective Last Vital Signs Date Time Temp Pulse Resp B/P (MAP) Pulse Ox O2 Delivery O2 Flow Rate FiO2 10/28/17 09:25 Room Air 10/28/17 09:00 76 87 92 10/28/17 08:00 97.7 20 121/63 99 97.7 10/27/17 20:00 21 10/26/17 18:14 2.0 Laboratory Tests Test 10/28/17 07:00 White Blood Count 7.8 K/UL (4.8-10.8) Red Blood Count 2.86 M/UL (4.70-6.10) L Hemoglobin 9.3 G/DL (14.2-18.0) L Hematocrit 28.2 % (42.0-52.0) L Mean Corpuscular Volume 99 FL (80-99) Mean Corpuscular Hemoglobin 32.7 PG (27.0-31.0) H Mean Corpuscular Hemoglobin Concent 33.1 G/DL (32.0-36.0) Red Cell Distribution Width 12.8 % (11.6-14.8) Platelet Count 296 K/UL (150-450) Mean Platelet Volume 5.5 FL (6.5-10.1) L Neutrophils (%) (Auto) 81.6 % (45.0-75.0) H Lymphocytes (%) (Auto) 7.0 % (20.0-45.0) L Monocytes (%) (Auto) 9.2 % (1.0-10.0) Eosinophils (%) (Auto) 1.3 % (0.0-3.0) Basophils (%) (Auto) 0.9 % (0.0-2.0) Sodium Level 132 MMOL/L (136-145) L Potassium Level 5.7 MMOL/L (3.5-5.1) H Chloride Level 95 MMOL/L (98-107) L Carbon Dioxide Level 25 MMOL/L (21-32) Anion Gap 12 mmol/L (5-15) Blood Urea Nitrogen 92 mg/dL (7-18) H Creatinine 8.8 MG/DL (0.55-1.30) H Estimat Glomerular Filtration Rate mL/min (>60) Glucose Level 120 MG/DL (74-106) H Calcium Level 8.2 MG/DL (8.5-10.1) L Microbiology Date/Time Source Procedure Growth Status 10/26/17 11:30 Nasopharynx Influenza Types A,B Antigen (DONIS) - Final Complete Intake and Output 10/27/17 10/28/17 19:00 07:00 Intake Total 270 ml Output Total 50 ml 0 ml Balance 220 ml 0 ml Intake Oral 270 ml Output Urine Total 50 ml 0 ml # Bowel Movements 2 Objective General Appearance: WD/WN, no apparent distress, lethargic EENT: PERRL/EOMI, normal ENT inspection Neck: non-tender, normal alignment, supple, normal inspection Cardiovascular: normal peripheral pulses, normal rate, regular rhythm, no gallop/murmur, no JVD Respiratory/Chest: chest wall non-tender, lungs clear, normal breath sounds, no respiratory distress, no accessory muscle use Abdomen: normal bowel sounds, non tender, soft, no organomegaly, no mass Extremities: normal range of motion, non-tender Neurologic: emergency room physician II-XII grossly normal Skin: normal pigmentation, warm/dry Assessment/Plan Problem List: (1) Elevated troponin Assessment & Plan: See cardiology note. 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 Left >Right. See neurology note (4) Pneumonia Assessment & Plan: Continue vanco and levaquin per ID (5) Diabetes mellitus, type II Assessment & Plan: Continue novolog sliding scale (6) ESRD (end stage renal disease) on dialysis (7) HTN (hypertension) Assessment & Plan: Continue lisinopril and lopressor (8) Subdural hematoma Assessment & Plan: Bilateral. Late subacute vs chronic. L>R Assessment/Plan Discussed with patient manager diversity, Dr Angel. States patient with frequent falls due to alcohol abuse. Recommends [facility] facility placement. Attempted to call patient son, Scot-left message. SUNNY OLIVAREZ Oct 28, 2017 13:10
[2017-10-28] MEDS ORDERED: RENVELA0.8 GM ORAL (13:39)
[2017-10-28] MEDS ORDERED: LISINOPRIL5 MG ORAL (13:39)
[2017-10-28] MEDS ORDERED: LOPRESSOR25 M1 ORAL (13:39)
[2017-10-28] MEDS: Docusate 100mg cap ORAL SCH ×3 (13:56→17:07)
[2017-10-28] MEDS: Renvela 800mg Pkt ORAL SCH ×3 (13:57→17:09)
[2017-10-28] MEDS: Lisinopril 2.5mg tab ORAL SCH ×2 (13:57→17:07)
[2017-10-28] MEDS: Metoprolol Tartrate 12.5mg TAB ORAL SCH (14:17)
[2017-10-28] MEDS ORDERED: Tubing IV Secondary IV ONE ×2 (14:52→17:27)
[2017-10-28] MEDS ORDERED: D5W 275ml ONE (14:52)
[2017-10-28 16:00] VITALS: BP 125/60
[2017-10-28] MEDS: Nitroglycerin Patch 0.4mg TDERMAL SCH (17:06)
[2017-10-28 17:07] VITALS: BP 125/60
--- NOTE | 2017-10-28 17:33 | Pulmonology Progress Note ---
Assessment/Plan Problems: (1) Acute encephalopathy (2) Delirium (3) ESRF (end stage renal failure) (4) HTN (hypertension) (5) Diabetes mellitus Assessment/Plan imroving HD by nephrology pt/ot monitor BP sliding scale diabetic diet symptomatic treatment Subjective ROS Limited/Unobtainable: No Constitutional: Reports: no symptoms HEENT: Repors: no symptoms Allergies: Coded Allergies: NO KNOWN ALLERGIES (Verified Allergy, Unknown, 10/23/17) Objective Last 24 Hour Vital Signs Date Time Temp Pulse Resp B/P (MAP) Pulse Ox O2 Delivery O2 Flow Rate FiO2 10/28/17 17:07 125/60 10/28/17 17:06 125/60 10/28/17 16:00 95 10/28/17 16:00 98.2 97 20 125/60 97 98.2 10/28/17 14:17 97 120/62 10/28/17 13:57 120/62 10/28/17 13:57 97 120/62 10/28/17 12:30 Room Air 10/28/17 12:00 98 10/28/17 12:00 97.9 97 21 120/62 98 97.9 10/28/17 09:25 Room Air 10/28/17 09:00 76 87 92 10/28/17 08:00 72 10/28/17 08:00 97.7 76 20 121/63 99 97.7 10/28/17 06:30 96 Room Air 10/28/17 06:30 Room Air 10/28/17 06:30 76 18 Room Air 10/28/17 04:00 97.0 75 20 136/66 100 Room Air 97.0 10/28/17 04:00 76 10/28/17 00:00 73 10/28/17 00:00 98.5 73 21 108/60 98 Room Air 98.5 10/27/17 21:00 75 87 82 10/27/17 21:00 73 108/60 10/27/17 20:00 70 20 Room Air 21 10/27/17 20:00 Room Air 21 10/27/17 20:00 98.7 73 22 108/60 97 Room Air 98.7 10/27/17 20:00 97 Room Air 21 10/27/17 18:12 123/56 Intake and Output 10/27/17 10/28/17 19:00 07:00 Intake Total 270 ml Output Total 50 ml 0 ml Balance 220 ml 0 ml Intake Oral 270 ml Output Urine Total 50 ml 0 ml # Bowel Movements 2 Objective General Appearance: WD/WN HEENT: normocephalic, atraumatic, anicteric Respiratory/Chest: chest wall non-tender, rhonchi Breasts: no masses Cardiovascular: normal peripheral pulses Abdomen: normal bowel sounds Genitourinary: normal external genitalia Microbiology Date/Time Source Procedure Growth Status 10/26/17 11:30 Nasopharynx Influenza Types A,B Antigen (DONIS) - Final Complete Laboratory Tests 10/28/17 07:00: White Blood Count 7.8, Red Blood Count 2.86L, Hemoglobin 9.3L, Hematocrit 28.2L , Mean Corpuscular Volume 99, Mean Corpuscular Hemoglobin 32.7H, Mean Corpuscular Hemoglobin Concent 33.1, Red Cell Distribution Width 12.8, Platelet Count 296, Mean Platelet Volume 5.5L, Neutrophils (%) (Auto) 81.6H, Lymphocytes (%) (Auto) 7.0L, Monocytes (%) (Auto) 9.2, Eosinophils (%) (Auto) 1.3, Basophils (%) (Auto) 0.9, Sodium Level 132L, Potassium Level 5.7H, Chloride Level 95L, Carbon Dioxide Level 25, Anion Gap 12, Blood Urea Nitrogen 92H, Creatinine 8.8H, Estimat Glomerular Filtration Rate , Glucose Level 120H, Calcium Level 8.2L Ginny Zhao MD Oct 28, 2017 17:33
--- NOTE | 2017-10-28 22:27 | General Progress Note ---
Assessment/Plan Assessment/Plan encepalopathy zyprexa 2.5 mg qhs Subjective Date patient seen: Oct 28, 2017 Neurologic/Psychiatric: Reports: anxiety, depressed Allergies: Coded Allergies: NO KNOWN ALLERGIES (Verified Allergy, Unknown, 10/23/17) Objective Last 24 Hour Vital Signs Date Time Temp Pulse Resp B/P (MAP) Pulse Ox O2 Delivery O2 Flow Rate FiO2 10/28/17 17:07 125/60 10/28/17 17:06 125/60 10/28/17 16:00 95 10/28/17 16:00 98.2 97 20 125/60 97 98.2 10/28/17 14:17 97 120/62 10/28/17 13:57 120/62 10/28/17 13:57 97 120/62 10/28/17 12:30 Room Air 10/28/17 12:00 98 10/28/17 12:00 97.9 97 21 120/62 98 97.9 10/28/17 09:25 Room Air 10/28/17 09:00 76 87 92 10/28/17 08:00 72 10/28/17 08:00 97.7 76 20 121/63 99 97.7 10/28/17 06:30 96 Room Air 10/28/17 06:30 Room Air 10/28/17 06:30 76 18 Room Air 10/28/17 04:00 97.0 75 20 136/66 100 Room Air 97.0 10/28/17 04:00 76 10/28/17 00:00 73 10/28/17 00:00 98.5 73 21 108/60 98 Room Air 98.5 Intake and Output 10/27/17 10/28/17 19:00 07:00 Intake Total 270 ml Output Total 50 ml 0 ml Balance 220 ml 0 ml Intake Oral 270 ml Output Urine Total 50 ml 0 ml # Bowel Movements 2 Laboratory Tests 10/28/17 07:00: White Blood Count 7.8, Red Blood Count 2.86L, Hemoglobin 9.3L, Hematocrit 28.2L , Mean Corpuscular Volume 99, Mean Corpuscular Hemoglobin 32.7H, Mean Corpuscular Hemoglobin Concent 33.1, Red Cell Distribution Width 12.8, Platelet Count 296, Mean Platelet Volume 5.5L, Neutrophils (%) (Auto) 81.6H, Lymphocytes (%) (Auto) 7.0L, Monocytes (%) (Auto) 9.2, Eosinophils (%) (Auto) 1.3, Basophils (%) (Auto) 0.9, Sodium Level 132L, Potassium Level 5.7H, Chloride Level 95L, Carbon Dioxide Level 25, Anion Gap 12, Blood Urea Nitrogen 92H, Creatinine 8.8H, Estimat Glomerular Filtration Rate , Glucose Level 120H, Calcium Level 8.2L Height (Feet): 5 Height (Inches): 0.00 Weight (Pounds): 142 General Appearance: no apparent distress, alert, confused, agitated Umair Matthews M.D. Oct 28, 2017 22:27
--- NOTE | 2017-10-28 22:32 | General Progress Note ---
Assessment/Plan Assessment/Plan encepalopathy zyprexa 2.5 mg qhs Subjective Date patient seen: Oct 27, 2017 Neurologic/Psychiatric: Reports: anxiety, depressed Allergies: Coded Allergies: NO KNOWN ALLERGIES (Verified Allergy, Unknown, 10/23/17) Objective Last 24 Hour Vital Signs Date Time Temp Pulse Resp B/P (MAP) Pulse Ox O2 Delivery O2 Flow Rate FiO2 10/28/17 17:07 125/60 10/28/17 17:06 125/60 10/28/17 16:00 95 10/28/17 16:00 98.2 97 20 125/60 97 98.2 10/28/17 14:17 97 120/62 10/28/17 13:57 120/62 10/28/17 13:57 97 120/62 10/28/17 12:30 Room Air 10/28/17 12:00 98 10/28/17 12:00 97.9 97 21 120/62 98 97.9 10/28/17 09:25 Room Air 10/28/17 09:00 76 87 92 10/28/17 08:00 72 10/28/17 08:00 97.7 76 20 121/63 99 97.7 10/28/17 06:30 96 Room Air 10/28/17 06:30 Room Air 10/28/17 06:30 76 18 Room Air 10/28/17 04:00 97.0 75 20 136/66 100 Room Air 97.0 10/28/17 04:00 76 10/28/17 00:00 73 10/28/17 00:00 98.5 73 21 108/60 98 Room Air 98.5 Intake and Output 10/27/17 10/28/17 19:00 07:00 Intake Total 270 ml Output Total 50 ml 0 ml Balance 220 ml 0 ml Intake Oral 270 ml Output Urine Total 50 ml 0 ml # Bowel Movements 2 Laboratory Tests 10/28/17 07:00: White Blood Count 7.8, Red Blood Count 2.86L, Hemoglobin 9.3L, Hematocrit 28.2L , Mean Corpuscular Volume 99, Mean Corpuscular Hemoglobin 32.7H, Mean Corpuscular Hemoglobin Concent 33.1, Red Cell Distribution Width 12.8, Platelet Count 296, Mean Platelet Volume 5.5L, Neutrophils (%) (Auto) 81.6H, Lymphocytes (%) (Auto) 7.0L, Monocytes (%) (Auto) 9.2, Eosinophils (%) (Auto) 1.3, Basophils (%) (Auto) 0.9, Sodium Level 132L, Potassium Level 5.7H, Chloride Level 95L, Carbon Dioxide Level 25, Anion Gap 12, Blood Urea Nitrogen 92H, Creatinine 8.8H, Estimat Glomerular Filtration Rate , Glucose Level 120H, Calcium Level 8.2L Height (Feet): 5 Height (Inches): 0.00 Weight (Pounds): 142 General Appearance: no apparent distress, confused, agitated Umair Matthews M.D. Oct 28, 2017 22:32
--- NOTE | 2017-10-29 16:41 | Discharge Summary ---
Discharge Summary Hospital Course Date of Admission Oct 22, 2017 at 20:33 Date of Discharge Oct 28, 2017 at 17:28 Admitting Diagnosis ALOC HPI Bartolo Escobar is a 81 year old male who was admitted on Oct 22, 2017 at 20:33 for Altered Level Of Consciousness Hospital Course [id number] Discharge Discharge Disposition Patient was discharged to SNF/Subacute Facility(03) Discharge Diagnoses: Alina Fernandes NP Oct 29, 2017 16:41
--- NOTE | 2017-10-30 04:00 | Discharge Summary 2 SIG ---
DATE OF ADMISSION: 10/22/2017 DATE OF DISCHARGE: 10/28/2017 ATTENDING PHYSICIAN: Evin Newton M.D. CONSULTANTS: 1. Ginny Zhao M.D. 2. Umair Matthews M.D. 3. Patti Pelaez M.D. 4. Lito Franco M.D. 5. Logan Walsh M.D. 6. Phillip Mahmood M.D. BRIEF HOSPITAL COURSE: The patient is an 81-year-old male, who presented with a chief complaint of altered mental status. He has history of end-stage renal disease and is on hemodialysis every Thursday, , and Thursday. According to caregiver, the patient began to experience altered mental status. He was then transported to [place] emergency room. He has past medical history significant for type 2 diabetes, end-stage renal disease, GERD, and hypertension. He is status post pacemaker implantation. He had an AV graft on the right arm. On evaluation at ED, blood work showed elevated creatinine 4.6 and BUN was 27. Troponin was 0.086. There was no leukocytosis noted. He had a chest x-ray done, which showed hypoventilation with bibasilar atelectasis and possible linear interstitial infiltrates. He was admitted for altered mental status. Dr. Franco was consulted for inpatient hemodialysis. He was continued on his amlodipine and losartan for hypertension. He underwent cardiac evaluation with Dr. Walsh. EKG showed sinus tachycardia at a rate of 111 with leftward axis. In direct comparison with EKG performed at [facility], it appeared that except for the mild tachycardia, EKG is otherwise unchanged. His LDL was 74 with total cholesterol of 142 and thyroid was normal. EKG fairly unremarkable and does not have chest pain. An echocardiogram was done that showed ejection fraction of 60% to 65% with normal left ventricular size, function, and wall motion and PA pressure of 47. There was no aortic regurgitation. No mitral regurgitation. He developed low-grade fever and was started empirically on Levaquin and vancomycin. Influenza screen was negative for influenza A and B. The patient had waxing and waning of consciousness and memory impairment. He was diagnosed with encephalopathy and was given Zyprexa 2.5 mg nightly. He continued to have decline in mental status. Dr. Mahmood was consulted. The patient has severe toxic metabolic encephalopathy, most likely from uremia. He was continued on IV antibiotics, IV fluids, and hemodialysis. CT scan of the head was done and showed positive for bilateral convexity, possible subacute or chronic subdural hematoma. He had a pacemaker interrogation done that showed normal function. Aspirin and heparin was discontinued. The patient will eventually need SNFnplacement. He was eventually discharged to [facility]. FINAL DIAGNOSES: 1. Acute toxic metabolic encephalopathy. 2. Subacute to chronic subdural hematoma. 3. Delirium. 4. End-stage renal failure, on hemodialysis. 5. Hypertension. 6. Diabetes mellitus. 7. Pneumonia. 8. Pacemaker status. 9. Abnormal cardiac enzyme of questionable significance in light of renal insufficiency. 10. Hypertension. 11. Hyperlipidemia. 12. Left hand skin tear, present on admission. DISPOSITION: The patient was discharged to SNF. DISCHARGE MEDICATIONS: Refer to medication list. Ginny Zhao M.D. I have been assigned to dictate discharge summary on this account and I was not involved in the patient's management. Alina Fernandes N.P. DR: Medina JOB#: [id number] CC: NISHANT
--- NOTE | 2017-10-31 22:39 | Diagnostic Imaging Report ---
APPROVED REPORT CPT Code: 84191 Vascular Symptoms Comments: AMS Doppler Spectral Velocity Analysis RightLeft RIGHT SIDE: CCA - Imaging reveals no significant plaque in the common carotid artery. ICA arteries. The Doppler signal indicates the degree of stenosis is minimal (30%) in the internal carotid, and in the external carotid arteries. VERTEBRAL - The vertebral artery is patent, without evidence of stenosis or steal. LEFT SIDE: CCA - Imaging reveals no significant plaque in the common carotid artery. ICA arteries. The Doppler signal indicates the degree of stenosis is minimal (10-20%) in the internal carotid, and (10%) in the external carotid arteries. VERTEBRAL- The vertebral artery was not well visualized.
--- NOTE | 2017-11-03 02:38 | Physician Query ---
--------- THIS DOCUMENT IS A PERMANENT PART OF THE MEDICAL RECORD --------- PLEASE COMPLETE THE DOCUMENT BEFORE SIGNING Dear Dr. CHEW Date: 11/03/17 Audio Production Manager/CDS Name:JERAMIE FUENTES, CCS Exercise your independent professional judgment when responding to query. Question asked do not imply a particular answer is desired/expected Clinical Documentation States: ID Progress notes on 10/26, 10/28, 10/24, Dr. Pelaez - Low-grade fever, resolved, Hypotension, SP ,Probable sepsis.,Probable pneumonia DC SUMMARY: On evaluation at ED, blood work showed elevated creatinine 4.6 and BUN was 27. Troponin was 0.086. There was no leukocytosis noted. He had a chest x-ray done, which showed hypoventilation with bibasilar atelectasis and possible linear interstitial infiltrates. He was admitted for altered mental status. EKG fairly unremarkable and does not have chest pain. An echocardiogram was done that showed ejection fraction of 60% to 65% with normal left ventricular size, function, and wall motion and PA pressure of 47. There was no aortic regurgitation. No mitral regurgitation. He developed low-grade fever and was started empirically on Levaquin and vancomycin. Influenza screen was negative for influenza A and B. The patient had waxing and waning of consciousness and memory impairment. He was diagnosed with encephalopathy and was given Zyprexa 2.5 mg nightly. He continued to have decline in mental status. Dr. Mahmood was consulted. The patient has severe toxic metabolic encephalopathy, most likely from uremia. He was continued on IV antibiotics, IV fluids, and hemodialysis. CT scan of the head was done and showed positive for bilateral convexity, possible subacute or chronic subdural hematoma. SEPSIS WAS MENTIONED IN THE PROGRESS NOTES BY INFECTIOUS DISEASE PHYSICIAN, CAN YOU ANSWER THE FOLLOWING QUESTION REGARDING IF SEPSIS WAS : ( ) CONFIRMED DIAGNOSIS ( ) RULED OUT ( ) Clinically undeterminable Please also document in your Progress Notes and/or Discharge Summary and indicate if the condition was present on admission. ENRIQUE CHEW M.D. DATE & TIME [facility]
== END 2017-10-28 17:28 | DRG 682 ==
LOC: EDBD 18:08 → EMR 20:28 → 2E 20:33 → EDBEDREQ 21:43
PROC: 5A1D70Z Performance of Urinary Filtration, Intermittent, Less than 6 Hours Per Day (ICD-10-PCS; principal; 2017-10-23)
PROC: 5A1D70Z Performance of Urinary Filtration, Intermittent, Less than 6 Hours Per Day (ICD-10-PCS; 2017-10-26)
PROC: 5A1D70Z Performance of Urinary Filtration, Intermittent, Less than 6 Hours Per Day (ICD-10-PCS; 2017-10-28)
DX: I12.0 Hypertensive chronic kidney disease with stage 5 chronic kidney disease or end stage renal disease (principal); G92 Toxic encephalopathy; I62.01 Nontraumatic acute subdural hemorrhage; J18.9 Pneumonia, unspecified organism; N18.6 End stage renal disease; E11.22 Type 2 diabetes mellitus with diabetic chronic kidney disease; I62.03 Nontraumatic chronic subdural hemorrhage; Z99.2 Dependence on renal dialysis; Z95.0 Presence of cardiac pacemaker; K21.9 Gastro-esophageal reflux disease without esophagitis; R41.0 Disorientation, unspecified; E78.5 Hyperlipidemia, unspecified; S61.412A Laceration without foreign body of left hand, initial encounter; X58.XXXA Exposure to other specified factors, initial encounter
CPT/HCPCS: 36415; 70450; 71045; 80048; 80053; 80061; 80202; 82550; 82553; 82607; 82728; 82746; 82962; 83036; 83540; 83550; 83735; 84100; 84443; 84484; 84550; 85025; 86710; 87070; 87081; 87205; 93005; 93306; 93880; 93970; 94664; 94760; 99283; 99285; J1815

== ENCOUNTER 2017-10-31 16:00 | Inpatient (IN) | payer MEDICARE, OTHER ==
[~2017-10-31] VITALS: Ht 152.4 cm; Wt 86.2 kg
[~2017-10-31 16:00] MED LIST: ACARBOSE25 MG ORAL; AMLODIPINE BES2.5 MG ORAL; FOLIC ACID0.8 MG ORAL; GLYBURIDE5 MG ORAL; LISINOPRIL5 MG ORAL; LOPRESSOR25 M1 ORAL; LOSARTAN POTAS100 MG ORAL; MECLIZINE HCL25 MG ORAL; OMEPRAZOLE40 M1 ORAL; RENA-VITE TABL0.8 M1 ORAL; RENVELA0.8 GM ORAL; SENSIPAR30 MG ORAL; SILDENAFIL20 MG ORAL; VITAMIN B COMP1 EAC2 ORAL
--- NOTE | 2017-10-31 16:24 | Emergency Room Report ---
History of Present Illness General Chief Complaint: Altered Level of Consciousness Source: Patient, Family Member, EMS Present Illness HPI Patient presents with reports of altered mental status Patient's family here reports that she saw the patient at 10:30 At the dialysis center and he looked abnormal and confused Patient had full dialysis and was finished approximately 3:30 She reports that he still looked confused She is not sure exactly what the patient looks like at the [facility] however the patient is usually awake and alert Currently patient responds to physical stimuli but is nonverbal Appears agitated Unknown regarding vomiting unknown regarding medications at the nursing facility Unknown regarding last known well Allergies: Coded Allergies: NO KNOWN ALLERGIES (Verified Allergy, Unknown, 10/23/17) Patient History Limited by: medical condition Past Medical History: see triage record Pertinent Family History: unable to obtain Reviewed Nursing Documentation: PMH: Agreed, PSxH: Agreed Nursing Documentation-PMH Hx Hypertension: Yes Hx Pacemaker: Yes Hx Diabetes: Yes Hx Cancer: No Hx Gastrointestinal Problems: No Hx Dialysis: Yes - Tue, [facility], Sat/ESRD Hx Neurological Problems: No Review of Systems All Other Systems: limited - Other than the ones mentioned in the history of present illness all others are reviewed however they do stay limited due to the patient's mental status Physical Exam Vital Signs Date Time Temp Pulse Resp B/P (MAP) Pulse Ox O2 Delivery O2 Flow Rate FiO2 10/31/17 15:51 97.7 109 16 137/64 97 Nasal Cannula 2.0 97.7 Sp02 EP Interpretation: reviewed, normal General Appearance: mild distress - Patient appears agitated Head: normocephalic, atraumatic Eyes: bilateral eye other - Pupils are somewhat constricted however minimally responsive ENT: other - Patient has obstructive respirations with large tongue, has episodes of apnea Neck: supple, thyroid normal Respiratory: other - Patient lung sounds are clear however has upper respiratory pathology including large tongue causing apnea Cardiovascular #1: regular rate, rhythm, no edema Gastrointestinal: non tender, soft Musculoskeletal: other - Patient moves both upper extremity towards physical stimuli, difficult to examine lower extremity Neurologic: other - Significantly decreased GCS, responsive to physical stimuli however not verbal Skin: normal color, no rash Procedures Critical Care Time Critical Care Time 50 minutes for multiple re-evaluations, initial concern of possible intracranial pathology, endorgan disease not including any procedural time Medical Decision Making Diagnostic Impression: Primary Impression: Acute encephalopathy Additional Impressions: ESRD (end stage renal disease) on dialysis Elevated troponin ER Course Patient is a fairly complex patient with multiple differential to consideration including but not limited to cardiac , intracranial , infectious cardiopulmonary and vascular emergencies Patient's ABG was appropriate CT head does not show any acute disease patient continues to do better throughout his stay however still remains change from baseline Patient does not meet any thrombolytic criteria last well-known is unknown and is well over 6 hours Patient admitted for further inpatient care Labs Test 10/31/17 17:00 10/31/17 18:07 Arterial Blood pH 7.500 (7.350-7.450) Arterial Blood Partial Pressure CO2 43.5 mmHg (35.0-45.0) Arterial Blood Partial Pressure O2 94.3 mmHg (75.0-100.0) Arterial Blood HCO3 33.2 mmol/L (22.0-26.0) Arterial Blood Oxygen Saturation 97.1 % (92.0-98.0) Arterial Blood Base Excess 9.1 Ezequiel Test Positive White Blood Count 5.8 K/UL (4.8-10.8) Red Blood Count 3.27 M/UL (4.70-6.10) Hemoglobin 10.9 G/DL (14.2-18.0) Hematocrit 32.3 % (42.0-52.0) Mean Corpuscular Volume 99 FL (80-99) Mean Corpuscular Hemoglobin 33.2 PG (27.0-31.0) Mean Corpuscular Hemoglobin Concent 33.6 G/DL (32.0-36.0) Red Cell Distribution Width 12.8 % (11.6-14.8) Platelet Count 338 K/UL (150-450) Mean Platelet Volume 5.8 FL (6.5-10.1) Neutrophils (%) (Auto) 71.3 % (45.0-75.0) Lymphocytes (%) (Auto) 10.4 % (20.0-45.0) Monocytes (%) (Auto) 10.6 % (1.0-10.0) Eosinophils (%) (Auto) 5.1 % (0.0-3.0) Basophils (%) (Auto) 2.5 % (0.0-2.0) Sodium Level 137 MMOL/L (136-145) Potassium Level 4.8 MMOL/L (3.5-5.1) Chloride Level 97 MMOL/L (98-107) Carbon Dioxide Level 32 MMOL/L (21-32) Anion Gap 8 mmol/L (5-15) Blood Urea Nitrogen 17 mg/dL (7-18) Creatinine 3.4 MG/DL (0.55-1.30) Estimat Glomerular Filtration Rate mL/min (>60) Glucose Level 97 MG/DL (74-106) Calcium Level 9.6 MG/DL (8.5-10.1) Total Bilirubin 1.0 MG/DL (0.2-1.0) Aspartate Amino Transf (AST/SGOT) 63 U/L (15-37) Alanine Aminotransferase (ALT/SGPT) 29 U/L (12-78) Alkaline Phosphatase 78 U/L (46-116) Total Creatine Kinase 268 U/L (26-308) Creatine Kinase MB 2.9 NG/ML (0.0-3.6) Creatine Kinase MB Relative Index 1.0 Troponin I 0.135 ng/mL (0.000-0.056) Total Protein 8.8 G/DL (6.4-8.2) Albumin 3.5 G/DL (3.4-5.0) Globulin 5.3 g/dL Albumin/Globulin Ratio 0.7 (1.0-2.7) Lipase 274 U/L (73-393) Rhythm Strip Diag. Results EP Interpretation: yes Rate: 89 Rhythm: NSR, no PVC's, no ectopy Chest X-Ray Diagnostic Results Chest X-Ray Diagnostic Results : Chest X-Ray Ordered: Yes # of Views/Limited/Complete: 1 View Indication: Chest Pain EP Interpretation: Yes Interpretation: no consolidation, no effusion, no pneumothorax, other - Appears of possible cardiomegaly with pulmonary congestion, it does however compare fairly well to previous Impression: Other - Pulmonary congestion CT/MRI/US Diagnostic Results CT/MRI/US Diagnostic Results : Impression CT head no acute disease Last Vital Signs Date Time Temp Pulse Resp B/P (MAP) Pulse Ox O2 Delivery O2 Flow Rate FiO2 10/31/17 15:51 97.7 109 16 137/64 97 Nasal Cannula 2.0 97.7 Status: improved Disposition: ADMITTED INPATIENT Condition: Serious Szuan Jacob DO Oct 31, 2017 16:24
[2017-10-31] MEDS ORDERED: ANTI-DIARRHEA2 MG PO (17:49)
[2017-10-31] MEDS ORDERED: FEXOFENADINE HC60 MG ORAL (17:49)
[2017-10-31] MEDS ORDERED: CATAPRES0.1 MG ORAL (17:49)
[2017-10-31] MEDS ORDERED: ACETAMINOPHEN325 M1 ORAL (17:49)
[2017-10-31] MEDS ORDERED: RENAGEL800 MG ORAL (17:49)
[2017-10-31 18:30] LABS: ANION GAP 8 mmol/L (5-15); BLOOD UREA NITROGEN 17 mg/dL (7-18); CALCIUM 9.6 MG/DL (8.5-10.1); CARBON DIOXIDE 32 MMOL/L (21-32); CHLORIDE 97 MMOL/L (98-107); CREATININE 3.4 MG/DL (0.55-1.30); POTASSIUM 4.8 MMOL/L (3.5-5.1); SODIUM 137 MMOL/L (136-145)
[2017-10-31 18:43] LABS: ALANINE AMINOTRANSFERASE 29 U/L (12-78); ALBUMIN 3.5 G/DL (3.4-5.0); ALBUMIN/GLOBULIN RATIO 0.7 (1.0-2.7); ALKALINE PHOSPHATASE 78 U/L (46-116); ASPARTATE AMINO TRANSFERASE 63 U/L (15-37); CKMB 2.9 NG/ML (0.0-3.6); CREATINE KINASE 268 U/L (26-308)
[2017-10-31] MEDS ORDERED: Miralax 17gm pkt ORAL PRN (18:45)
[2017-10-31] MEDS ORDERED: Mylanta II UD 30ml ORAL PRN (18:45)
[2017-10-31] MEDS ORDERED: Zolpidem 5mg tab ORAL PRN (18:45)
[2017-10-31] MEDS ORDERED: Albuterol/Ipratropium 3ml neb HHN PRN (18:45)
[2017-10-31] MEDS ORDERED: Morphine Sulfate 2mg/ml Inj IVP PRN (18:45)
[2017-10-31 19:34] LABS: BASOPHILS % (AUTO) 2.5 % (0.0-2.0); EOSINOPHILS % (AUTO) 5.1 % (0.0-3.0); HEMATOCRIT 32.3 % (42.0-52.0); HEMOGLOBIN 10.9 G/DL (14.2-18.0); LYMPHOCYTES % (AUTO) 10.4 % (20.0-45.0); MEAN CORPUSCULAR VOLUME 99 FL (80-99); MONOCYTES % (AUTO) 10.6 % (1.0-10.0); NEUTROPHILS % (AUTO) 71.3 % (45.0-75.0); PLATELET COUNT 338 K/UL (150-450); RED BLOOD COUNT 3.27 M/UL (4.70-6.10); RED CELL DISTRIBUTION WIDTH 12.8 % (11.6-14.8); WHITE BLOOD COUNT 5.8 K/UL (4.8-10.8)
[2017-10-31 19:37] VITALS: BP 168/71
[2017-10-31 20:18] VITALS: BP 142/84
[2017-10-31] MEDS: Lisinopril 2.5mg tab ORAL SCH (20:37)
[2017-10-31] MEDS: Heparin 5000 units/ml inj SUBQ SCH (20:40)
[2017-10-31] MEDS: NovoLOG Insulin Flexpen SUBQ SCH (20:44)
[2017-11-01] VITALS: BP 154/111
[2017-11-01 04:00] VITALS: BP 131/68
[2017-11-01] MEDS: NovoLOG Insulin Flexpen SUBQ SCH ×4 (06:19→20:39)
[2017-11-01 08:00] VITALS: BP 140/60
[2017-11-01] MEDS ORDERED: Losartan 50mg tab ORAL SCH (09:00)
[2017-11-01] MEDS: Lisinopril 2.5mg tab ORAL SCH ×2 (09:46→20:36)
[2017-11-01] MEDS: Heparin 5000 units/ml inj SUBQ SCH ×2 (09:49→20:39)
--- NOTE | 2017-11-01 10:01 | Diagnostic Imaging Report ---
Indication: Chest pain Technique: XRAY Chest 1v Comparison: 10/24/2017 Findings: Heart size and mediastinal contours are stable. Left-sided dual-lead pacemaker unchanged. Multiple vascular stents again noted. There are persistent linear interstitial opacities in the lungs. Degree of interstitial opacification appears slightly increased. No new focal consolidation is identified. Osseous structures are stable. Impression: Cardiomegaly and mild interstitial opacification/edema likely related to a degree of fluid overload/CHF. Clinical correlation and follow-up exam recommended. Study obtained via the emergency department however patient admitted to the hospital at time of dictation of the final report.
[2017-11-01 11:17] LABS: BASOPHILS % (AUTO) 0.9 % (0.0-2.0); EOSINOPHILS % (AUTO) 3.6 % (0.0-3.0); HEMATOCRIT 28.9 % (42.0-52.0); HEMOGLOBIN 9.6 G/DL (14.2-18.0); MEAN CORPUSCULAR VOLUME 101 FL (80-99); MONOCYTES % (AUTO) 8.5 % (1.0-10.0); PLATELET COUNT 353 K/UL (150-450); RED BLOOD COUNT 2.86 M/UL (4.70-6.10); WHITE BLOOD COUNT 6.1 K/UL (4.8-10.8)
[2017-11-01 11:35] LABS: ALANINE AMINOTRANSFERASE 27 U/L (12-78); ALBUMIN 3.4 G/DL (3.4-5.0); ALBUMIN/GLOBULIN RATIO 0.7 (1.0-2.7); ALKALINE PHOSPHATASE 73 U/L (46-116); ANION GAP 9 mmol/L (5-15); ASPARTATE AMINO TRANSFERASE 31 U/L (15-37); BILIRUBIN,TOTAL 0.7 MG/DL (0.2-1.0); BLOOD UREA NITROGEN 26 mg/dL (7-18); CALCIUM 9.3 MG/DL (8.5-10.1); CARBON DIOXIDE 34 MMOL/L (21-32); CHLORIDE 96 MMOL/L (98-107); CHOLESTEROL 162 MG/DL (< 200); HDL CHOLESTEROL 68 MG/DL (40-60); POTASSIUM 3.9 MMOL/L (3.5-5.1); SODIUM 139 MMOL/L (136-145); TRIGLYCERIDES 65 MG/DL (30-150)
[2017-11-01 12:00] VITALS: BP 116/80
--- NOTE | 2017-11-01 12:52 | Consultation ---
History of Present Illness General Date patient seen: Nov 01, 2017 Chief Complaint: Altered Level of Consciousness Present Illness HPI 81 year old male with hx of ESRF on HD, DM, HTN, recently discharged to [facility], presented to ER with CC of altered mental status at the dialysis center, he looked abnormal and confused Currently patient responds to physical stimuli but is nonverbal. Appears agitated at times. the CT of the head was negative. Pt is admitted to telemetry acute encephalopathy, unknown etiology. Allergies: Coded Allergies: NO KNOWN ALLERGIES (Verified Allergy, Unknown, 10/23/17) Medication History Scheduled Amlodipine Besylate* (Amlodipine Besylate*), 2.5 MG ORAL DAILY, (Reported) Cinacalcet* (Sensipar*), 30 MG ORAL HS, (Reported) Fexofenadine Hcl (Fexofenadine Hcl*), 60 MG ORAL DAILY, (Reported) Folic Acid/Vitamin B Comp W-C (Ursula-Armani Tablet), 0.5 MG ORAL DAILY, (Reported) Glyburide (Glyburide), 5 MG ORAL DAILY, (Reported) Lisinopril (Lisinopril*), 2.5 MG ORAL BID Losartan Potassium (Losartan Potassium), 100 MG ORAL DAILY, (Reported) Metoprolol Tartrate (Metoprolol Tartrate), 12.5 MG ORAL Q12HR Omeprazole (Omeprazole), 40 MG ORAL DAILY, (Reported) Sevelamer Carbonate* (Renvela*), 1,600 MG ORAL THREE TIMES A DAY Sevelamer Hcl (Renagel), 3 TAB ORAL BID, (Reported) Sildenafil Citrate (Sildenafil), 25 MG ORAL PRN, (Reported) Vitamin B Complex (Vitamin B Complex), 1 CAP ORAL DAILY, (Reported) Scheduled PRN Acetaminophen* (Acetaminophen 325MG Tablet*), 650 MG ORAL Q4H PRN for Fever/ Headache/Mild Pain, (Reported) Clonidine Hcl* (Catapres*), 0.1 MG ORAL PRN PRN for For High Blood Pressure, ( Reported) Loperamide Hcl (Anti-Diarrhea), 2 MG PO Q6HR PRN for Diarrhea, (Reported) Discontinued Medications Acarbose (Acarbose), 25 MG ORAL BID, (Reported) Discontinued Reason: Pt stopped taking med Folic Acid (Folic Acid), 1 TAB ORAL DAILY, (Reported) Discontinued Reason: Pt stopped taking med Meclizine Hcl* (Meclizine*), 25 MG ORAL EVERY 8 HOURS PRN for for dizziness, ( Reported) Discontinued Reason: Pt stopped taking med Sevelamer Carbonate* (Renvela*), 800 MG ORAL THREE TIMES A DAY, (Reported) Discontinued Reason: Prescription changed Patient History Healthcare decision maker Resuscitation status Full Code Advanced Directive on File Past Medical/Surgical History Past Medical/Surgical History: (1) ESRD (end stage renal disease) on dialysis (2) Diabetes mellitus, type II (3) HTN (hypertension) Review of Systems All Other Systems: negative except mentioned in HPI Physical Exam General Appearance: WD/WN Lines, tubes and drains: peripheral HEENT: normocephalic, atraumatic Neck: non-tender, normal alignment Respiratory/Chest: chest wall non-tender, lungs clear, normal breath sounds Cardiovascular/Chest: normal peripheral pulses, normal rate Genitourinary/Rectal: normal genital exam, normal rectal exam Extremities: normal range of motion, non-tender Last 24 Hour Vital Signs Date Time Temp Pulse Resp B/P (MAP) Pulse Ox O2 Delivery O2 Flow Rate FiO2 11/01/17 09:46 140/60 11/01/17 09:46 95 140/60 11/01/17 08:00 97 11/01/17 08:00 97.5 95 19 140/60 97 Nasal Cannula 2.0 97.5 11/01/17 04:00 100 11/01/17 04:00 96.6 101 16 131/68 94 Nasal Cannula 2.0 96.6 11/01/17 00:00 97.5 102 20 154/111 98 Nasal Cannula 2.0 97.5 11/01/17 00:00 103 10/31/17 20:37 142/84 10/31/17 20:18 97.6 108 20 142/84 94 Nasal Cannula 2.0 97.6 10/31/17 19:40 97.7 108 16 168/71 97 Nasal Cannula 2.0 97.7 10/31/17 19:37 97.7 16 168/71 97 Nasal Cannula 2.0 97.7 10/31/17 15:51 97.7 109 16 137/64 97 Nasal Cannula 2.0 97.7 Intake and Output 10/31/17 11/01/17 19:00 07:00 Intake Total 0 ml Balance 0 ml Intake Oral 0 ml Laboratory Tests Test 10/31/17 17:00 10/31/17 18:07 11/01/17 09:30 Arterial Blood pH 7.500 (7.350-7.450) Arterial Blood Partial Pressure CO2 43.5 mmHg (35.0-45.0) Arterial Blood Partial Pressure O2 94.3 mmHg (75.0-100.0) Arterial Blood HCO3 33.2 mmol/L (22.0-26.0) H Arterial Blood Oxygen Saturation 97.1 % (92.0-98.0) Arterial Blood Base Excess 9.1 Ezequiel Test Positive White Blood Count 5.8 K/UL (4.8-10.8) 6.1 K/UL (4.8-10.8) Red Blood Count 3.27 M/UL (4.70-6.10) L 2.86 M/UL (4.70-6.10) L Hemoglobin 10.9 G/DL (14.2-18.0) L 9.6 G/DL (14.2-18.0) L Hematocrit 32.3 % (42.0-52.0) L 28.9 % (42.0-52.0) L Mean Corpuscular Volume 99 FL (80-99) 101 FL (80-99) H Mean Corpuscular Hemoglobin 33.2 PG (27.0-31.0) H 33.5 PG (27.0-31.0) H Mean Corpuscular Hemoglobin Concent 33.6 G/DL (32.0-36.0) 33.1 G/DL (32.0-36.0) Red Cell Distribution Width 12.8 % (11.6-14.8) 13.0 % (11.6-14.8) Platelet Count 338 K/UL (150-450) 353 K/UL (150-450) Mean Platelet Volume 5.8 FL (6.5-10.1) L 5.4 FL (6.5-10.1) L Neutrophils (%) (Auto) 71.3 % (45.0-75.0) 76.0 % (45.0-75.0) H Lymphocytes (%) (Auto) 10.4 % (20.0-45.0) L 11.0 % (20.0-45.0) L Monocytes (%) (Auto) 10.6 % (1.0-10.0) H 8.5 % (1.0-10.0) Eosinophils (%) (Auto) 5.1 % (0.0-3.0) H 3.6 % (0.0-3.0) H Basophils (%) (Auto) 2.5 % (0.0-2.0) H 0.9 % (0.0-2.0) Sodium Level 137 MMOL/L (136-145) 139 MMOL/L (136-145) Potassium Level 4.8 MMOL/L (3.5-5.1) 3.9 MMOL/L (3.5-5.1) Chloride Level 97 MMOL/L (98-107) L 96 MMOL/L (98-107) L Carbon Dioxide Level 32 MMOL/L (21-32) 34 MMOL/L (21-32) H Anion Gap 8 mmol/L (5-15) 9 mmol/L (5-15) Blood Urea Nitrogen 17 mg/dL (7-18) 26 mg/dL (7-18) H Creatinine 3.4 MG/DL (0.55-1.30) H 5.0 MG/DL (0.55-1.30) H Estimat Glomerular Filtration Rate mL/min (>60) mL/min (>60) Glucose Level 97 MG/DL (74-106) 106 MG/DL (74-106) Calcium Level 9.6 MG/DL (8.5-10.1) 9.3 MG/DL (8.5-10.1) Total Bilirubin 1.0 MG/DL (0.2-1.0) 0.7 MG/DL (0.2-1.0) Aspartate Amino Transf (AST/SGOT) 63 U/L (15-37) H 31 U/L (15-37) Alanine Aminotransferase (ALT/SGPT) 29 U/L (12-78) 27 U/L (12-78) Alkaline Phosphatase 78 U/L (46-116) 73 U/L (46-116) Total Creatine Kinase 268 U/L (26-308) Creatine Kinase MB 2.9 NG/ML (0.0-3.6) Creatine Kinase MB Relative Index 1.0 Troponin I 0.135 ng/mL (0.000-0.056) Total Protein 8.8 G/DL (6.4-8.2) H 8.2 G/DL (6.4-8.2) Albumin 3.5 G/DL (3.4-5.0) 3.4 G/DL (3.4-5.0) Globulin 5.3 g/dL 4.8 g/dL Albumin/Globulin Ratio 0.7 (1.0-2.7) L 0.7 (1.0-2.7) L Lipase 274 U/L (73-393) Hemoglobin A1c 7.8 % (4.3-6.0) H Triglycerides Level 65 MG/DL (30-150) Cholesterol Level 162 MG/DL (< 200) LDL Cholesterol 85 mg/dL (<100) HDL Cholesterol 68 MG/DL (40-60) H Cholesterol/HDL Ratio 2.4 (3.3-4.4) L Thyroid Stimulating Hormone (TSH) 0.975 uiU/mL (0.358-3.740) Height (Feet): 5 Weight (Pounds): 190 Medications Current Medications Medications (Trade) Dose Ordered Sig/Tanya Route PRN Reason Start Time Stop Time Status Last Admin Dose Admin Acetaminophen (Tylenol) 650 mg Q4H PRN ORAL fever 10/31/17 18:45 11/30/17 18:44 Al Hydroxide/Mg Hydroxide (Mylanta II) 30 ml Q6H PRN ORAL dyspepsia 10/31/17 18:45 11/30/17 18:44 Albuterol/ Ipratropium (Albuterol/ Ipratropium) 3 ml Q6H PRN HHN dyspnea 10/31/17 18:45 11/05/17 18:44 Amlodipine Besylate (Norvasc) 2.5 mg DAILY ORAL 11/01/17 09:00 12/01/17 08:59 11/01/17 09:46 Clonidine HCl (Catapres Tab) 0.1 mg Q4H PRN ORAL For High Blood Pressure 10/31/17 18:45 11/30/17 18:44 Dextrose (Dextrose 50%) STAT PRN IV Hypoglycemia 10/31/17 18:45 11/30/17 18:44 Furosemide (Lasix) 100 mg Q8H PRN IV dyspnea 10/31/17 18:45 11/30/17 18:44 Heparin Sodium (Porcine) (Heparin 5000 units/ml) 5,000 units EVERY 12 HOURS SUBQ 10/31/17 21:00 11/30/17 20:59 11/01/17 09:49 Insulin Aspart (NovoLOG) BEFORE MEALS AND HS SUBQ 10/31/17 21:00 11/30/17 20:59 10/31/17 20:44 Lisinopril (Zestril) 2.5 mg Q12HR ORAL 10/31/17 21:00 11/30/17 20:59 11/01/17 09:46 Morphine Sulfate (Morphine Sulfate) 1 mg Q4H PRN IVP For Pain 10/31/17 18:45 11/07/17 18:44 Ondansetron HCl (Zofran) 4 mg Q6H PRN IVP Nausea & Vomiting 10/31/17 18:45 11/30/17 18:44 Polyethylene Glycol (Miralax) 17 gm HSPRN PRN ORAL Constipation 10/31/17 18:45 11/30/17 18:44 Zolpidem Tartrate (Ambien) 5 mg HSPRN PRN ORAL Insomnia 10/31/17 18:45 11/07/17 18:44 Assessment/Plan Problem List: (1) Acute encephalopathy ICD Codes: G93.40 - Encephalopathy, unspecified SNOMED: 41311721, 034688895 (2) Subdural hematoma ICD Codes: I62.00 - Nontraumatic subdural hemorrhage, unspecified SNOMED: 19948296 (3) HTN (hypertension) ICD Codes: I10 - Essential (primary) hypertension SNOMED: 01886371 (4) ESRD (end stage renal disease) on dialysis ICD Codes: N18.6 - End stage renal disease; Z99.2 - Dependence on renal dialysis SNOMED: 930824146 (5) Diabetes mellitus ICD Codes: E11.9 - Type 2 diabetes mellitus without complications SNOMED: 44663041 (6) ESRF (end stage renal failure) ICD Codes: N18.6 - End stage renal disease SNOMED: 80520245 (7) Pacemaker ICD Codes: Z95.0 - Presence of cardiac pacemaker SNOMED: 266302504 Assessment/Plan neurology evaluation sliding scale diabetic diet renal evaluation for Hd titrate fio2 to sat of 92% keep close to nursing station, sitter might be necessary Ginny Zhao MD Nov 01, 2017 12:51
--- NOTE | 2017-11-01 13:59 | Diagnostic Imaging Report ---
Indication: Altered mental status Technique: Continuous helical CT scanning of the head was performed utilizing automated exposure control without intravenous contrast material. Axial and coronal reconstructions were obtained. Comparison: 10/26/2017 CT dose: Total DLP 1312.75 mGycm; CTDI vol 70.38 mGy Findings: Chronic bilateral subdural hemorrhages slightly decreased in thickness compared to the prior exam. For example the hemorrhage overlying the left frontal convexity previously measured approximately 7 mm in thickness and now measures proximate 4.5 mm in thickness. No evidence to suggest new intracranial hemorrhage. No CT evidence of acute large territorial infarct. Ventricles are stable in size and configuration. Again noted is atrophy with age-related enlargement of the ventricles and CSF spaces. Bilateral mastoid and middle ear opacification is again noted. There is no depressed calvarial fracture. IMPRESSION: Bilateral chronic subdural hematomas persists, with slight interval decrease in size. No evidence of new intracranial hemorrhage. Additional findings unchanged. The CT scanner at [facility] is accredited by the [employer] and the scans are performed using protocols designed to limit radiation exposure to as low as reasonably achievable to attain images of sufficient resolution adequate for diagnostic evaluation.
[2017-11-01 16:00] VITALS: BP 123/57
--- NOTE | 2017-11-01 16:08 | History & Physical ---
History and Physical History & Physicial Dictated for Int Med-Dr Newton no. [id number]. SUNNY CARBAJAL Nov 01, 2017 16:08
--- NOTE | 2017-11-01 18:26 | Consultation ---
Consult Note Consult Note asked to eval for dialysis management Known to me from his recent admission Chief Complaint: Altered Level of Consciousness Patient presents with reports of altered mental status Patient's family here reports that she saw the patient at 10:30 At the dialysis center and he looked abnormal and confused Patient had full dialysis and was finished approximately 3:30 She reports that he still looked confused She is not sure exactly what the patient looks like at the snf however the patient is usually awake and alert Currently patient responds to physical stimuli but is nonverbal Appears agitated Unknown regarding vomiting unknown regarding medications at the nursing facility Unknown regarding last known well HPI includes type 2 DM, HTN, HLD, ESRD on HD Hx Hypertension: Yes Hx Pacemaker: Yes Hx Diabetes: Yes Hx Cancer: No Hx Gastrointestinal Problems: No Hx Dialysis: Yes - Tue, Jacob, Sat/ESRD Hx Neurological Problems: No Assessment/Plan encephalopathy ESRD DM HTN Pacer / CHF Plan: Dialysis as needed Adjust BP meds- per orders MELY SINGH Nov 01, 2017 18:26
[2017-11-01 20:00] VITALS: BP 136/106
[2017-11-01] MEDS: Nitroglycerin Patch 0.2mg/hr TDERMAL SCH (20:36)
--- NOTE | 2017-11-01 22:28 | Consultation ---
History of Present Illness General Date patient seen: Nov 01, 2017 Chief Complaint: Altered Level of Consciousness Present Illness HPI 81 year old male with hx of ESRF on HD, DM, HTN, recently discharged to [facility], presented to ER with CC of altered mental status Allergies: Coded Allergies: NO KNOWN ALLERGIES (Verified Allergy, Unknown, 10/23/17) Medication History Scheduled Amlodipine Besylate* (Amlodipine Besylate*), 2.5 MG ORAL DAILY, (Reported) Cinacalcet* (Sensipar*), 30 MG ORAL HS, (Reported) Fexofenadine Hcl (Fexofenadine Hcl*), 60 MG ORAL DAILY, (Reported) Folic Acid/Vitamin B Comp W-C (Ursula-Armani Tablet), 0.5 MG ORAL DAILY, (Reported) Glyburide (Glyburide), 5 MG ORAL DAILY, (Reported) Lisinopril (Lisinopril*), 2.5 MG ORAL BID Losartan Potassium (Losartan Potassium), 100 MG ORAL DAILY, (Reported) Metoprolol Tartrate (Metoprolol Tartrate), 12.5 MG ORAL Q12HR Omeprazole (Omeprazole), 40 MG ORAL DAILY, (Reported) Sevelamer Carbonate* (Renvela*), 1,600 MG ORAL THREE TIMES A DAY Sevelamer Hcl (Renagel), 3 TAB ORAL BID, (Reported) Sildenafil Citrate (Sildenafil), 25 MG ORAL PRN, (Reported) Vitamin B Complex (Vitamin B Complex), 1 CAP ORAL DAILY, (Reported) Scheduled PRN Acetaminophen* (Acetaminophen 325MG Tablet*), 650 MG ORAL Q4H PRN for Fever/ Headache/Mild Pain, (Reported) Clonidine Hcl* (Catapres*), 0.1 MG ORAL PRN PRN for For High Blood Pressure, ( Reported) Loperamide Hcl (Anti-Diarrhea), 2 MG PO Q6HR PRN for Diarrhea, (Reported) Discontinued Medications Acarbose (Acarbose), 25 MG ORAL BID, (Reported) Discontinued Reason: Pt stopped taking med Folic Acid (Folic Acid), 1 TAB ORAL DAILY, (Reported) Discontinued Reason: Pt stopped taking med Meclizine Hcl* (Meclizine*), 25 MG ORAL EVERY 8 HOURS PRN for for dizziness, ( Reported) Discontinued Reason: Pt stopped taking med Sevelamer Carbonate* (Renvela*), 800 MG ORAL THREE TIMES A DAY, (Reported) Discontinued Reason: Prescription changed Patient History Healthcare decision maker Resuscitation status Full Code Advanced Directive on File Physical Exam Last 24 Hour Vital Signs Date Time Temp Pulse Resp B/P (MAP) Pulse Ox O2 Delivery O2 Flow Rate FiO2 11/01/17 20:36 136/106 11/01/17 20:36 136/106 11/01/17 20:00 98.4 84 20 136/106 96 Nasal Cannula 2.0 98.4 11/01/17 16:00 97.0 92 18 123/57 96 Nasal Cannula 2.0 97.0 11/01/17 15:31 90 11/01/17 12:02 100 11/01/17 12:00 97.7 98 19 116/80 98 Nasal Cannula 2.0 97.7 11/01/17 09:46 140/60 11/01/17 09:46 95 140/60 11/01/17 08:00 97 11/01/17 08:00 97.5 95 19 140/60 97 Nasal Cannula 2.0 97.5 11/01/17 04:00 100 11/01/17 04:00 96.6 101 16 131/68 94 Nasal Cannula 2.0 96.6 11/01/17 00:00 97.5 102 20 154/111 98 Nasal Cannula 2.0 97.5 11/01/17 00:00 103 Intake and Output 10/31/17 11/01/17 19:00 07:00 Intake Total 0 ml Balance 0 ml Intake Oral 0 ml Laboratory Tests Test 11/01/17 09:10 11/01/17 09:30 C-Reactive Protein, Quantitative 10.6 mg/dL (0.00-0.90) H White Blood Count 6.1 K/UL (4.8-10.8) Red Blood Count 2.86 M/UL (4.70-6.10) L Hemoglobin 9.6 G/DL (14.2-18.0) L Hematocrit 28.9 % (42.0-52.0) L Mean Corpuscular Volume 101 FL (80-99) H Mean Corpuscular Hemoglobin 33.5 PG (27.0-31.0) H Mean Corpuscular Hemoglobin Concent 33.1 G/DL (32.0-36.0) Red Cell Distribution Width 13.0 % (11.6-14.8) Platelet Count 353 K/UL (150-450) Mean Platelet Volume 5.4 FL (6.5-10.1) L Neutrophils (%) (Auto) 76.0 % (45.0-75.0) H Lymphocytes (%) (Auto) 11.0 % (20.0-45.0) L Monocytes (%) (Auto) 8.5 % (1.0-10.0) Eosinophils (%) (Auto) 3.6 % (0.0-3.0) H Basophils (%) (Auto) 0.9 % (0.0-2.0) Sodium Level 139 MMOL/L (136-145) Potassium Level 3.9 MMOL/L (3.5-5.1) Chloride Level 96 MMOL/L (98-107) L Carbon Dioxide Level 34 MMOL/L (21-32) H Anion Gap 9 mmol/L (5-15) Blood Urea Nitrogen 26 mg/dL (7-18) H Creatinine 5.0 MG/DL (0.55-1.30) H Estimat Glomerular Filtration Rate mL/min (>60) Glucose Level 106 MG/DL (74-106) Hemoglobin A1c 7.8 % (4.3-6.0) H Calcium Level 9.3 MG/DL (8.5-10.1) Total Bilirubin 0.7 MG/DL (0.2-1.0) Aspartate Amino Transf (AST/SGOT) 31 U/L (15-37) Alanine Aminotransferase (ALT/SGPT) 27 U/L (12-78) Alkaline Phosphatase 73 U/L (46-116) Total Protein 8.2 G/DL (6.4-8.2) Albumin 3.4 G/DL (3.4-5.0) Globulin 4.8 g/dL Albumin/Globulin Ratio 0.7 (1.0-2.7) L Triglycerides Level 65 MG/DL (30-150) Cholesterol Level 162 MG/DL (< 200) LDL Cholesterol 85 mg/dL (<100) HDL Cholesterol 68 MG/DL (40-60) H Cholesterol/HDL Ratio 2.4 (3.3-4.4) L Thyroid Stimulating Hormone (TSH) 0.975 uiU/mL (0.358-3.740) Height (Feet): 5 Weight (Pounds): 190 Medications Current Medications Medications (Trade) Dose Ordered Sig/Tanya Route PRN Reason Start Time Stop Time Status Last Admin Dose Admin Acetaminophen (Tylenol) 650 mg Q4H PRN ORAL fever 10/31/17 18:45 11/30/17 18:44 Albuterol/ Ipratropium (Albuterol/ Ipratropium) 3 ml Q6H PRN HHN dyspnea 10/31/17 18:45 11/05/17 18:44 Amlodipine Besylate (Norvasc) 2.5 mg DAILY ORAL 11/01/17 09:00 12/01/17 08:59 11/01/17 09:46 Aspirin (ASA) 81 mg DAILY ORAL 11/02/17 09:00 12/02/17 08:59 Clonidine HCl (Catapres Tab) 0.1 mg Q4H PRN ORAL For High Blood Pressure 10/31/17 18:45 11/30/17 18:44 Dextrose (Dextrose 50%) STAT PRN IV Hypoglycemia 10/31/17 18:45 11/30/17 18:44 Heparin Sodium (Porcine) (Heparin 5000 units/ml) 5,000 units EVERY 12 HOURS SUBQ 10/31/17 21:00 11/30/17 20:59 11/01/17 20:39 Insulin Aspart (NovoLOG) BEFORE MEALS AND HS SUBQ 10/31/17 21:00 11/30/17 20:59 11/01/17 20:39 Lisinopril (Zestril) 2.5 mg Q12HR ORAL 10/31/17 21:00 11/30/17 20:59 11/01/17 20:36 Morphine Sulfate (Morphine Sulfate) 1 mg Q4H PRN IVP For Pain 10/31/17 18:45 11/07/17 18:44 Nitroglycerin (Ntg) 1 patch Q24H TDERMAL 11/01/17 18:30 12/01/17 18:29 11/01/17 20:36 Ondansetron HCl (Zofran) 4 mg Q6H PRN IVP Nausea & Vomiting 10/31/17 18:45 11/30/17 18:44 Polyethylene Glycol (Miralax) 17 gm HSPRN PRN ORAL Constipation 10/31/17 18:45 11/30/17 18:44 Zolpidem Tartrate (Ambien) 5 mg HSPRN PRN ORAL Insomnia 10/31/17 18:45 11/07/17 18:44 Umair Matthews M.D. Nov 01, 2017 22:28
--- NOTE | 2017-11-01 23:30 | History and Physical Report ---
DATE OF ADMISSION: 10/31/2017 CHIEF COMPLAINT: The patient is an 81-year-old male who presents with chief complaint of altered mental status. HISTORY OF PRESENT ILLNESS: The patient was admitted to [facility] on 10/22/2017 through 10/28/2017. Please see history and physical and discharge summary dictated at that time. The patient was discharged to [facility]. According to the patient's daughter who is at the bedside, the patient had altered mental status yesterday during dialysis. She was unable to wake the patient. The patient was transported to [facility] emergency room. The patient was admitted for altered mental status to rule out acute cerebrovascular accident. REVIEW OF SYSTEMS: CONSTITUTIONAL: The patient denies weight loss or weight gain. The patient denies fevers or chills. HEENT: The patient denies ear or throat pain. The patient denies headache. CARDIOVASCULAR: The patient denies palpitations or chest pain. CHEST: The patient denies wheezes or shortness of breath. ABDOMEN: The patient denies nausea, vomiting, diarrhea, or constipation. GENITOURINARY: The patient denies any dysuria or increased frequency of urination. NEUROMUSCULAR: The patient complains of altered mental status as above. The patient denies seizures or generalized weakness. PAST MEDICAL HISTORY: Significant for. 1. Type 2 diabetes. 2. End-stage renal disease, on hemodialysis every Thursday, , and Thursday. 3. Gastroesophageal reflux disease. 4. Hypertension. PAST SURGICAL HISTORY: Significant for: 1. Arteriovenous graft placement in the right arm. 2. Cataract surgery. 3. Pacemaker implantation. CURRENT MEDICATIONS: 1. Amlodipine 2.5 mg p.o. daily. 2. Sensipar 30 mg p.o. at bedtime. 3. Clonidine 0.1 mg q.4 h p.r.n. 4. Fexofenadine 60 mg p.o. daily. 5. Ursula-Armani 0.5 mg p.o. daily. 6. Glyburide 5 mg p.o. daily. 7. Lisinopril 2.5 mg p.o. twice daily. 8. Losartan 100 mg p.o. daily. 9. Metoprolol 12.5 mg p.o. twice daily. 10. Omeprazole 40 mg p.o. daily. 11. Renvela 1600 mg p.o. three times daily. 12. . 13. Vitamin B complex. ALLERGIES: No known drug allergies. SOCIAL HISTORY: The patient is a . The patient lives with his adult daughter. The patient denies tobacco or alcohol use. PHYSICAL EXAMINATION: VITAL SIGNS: Temperature 97.5, respirations 20, pulse 102, blood pressure 154/111. GENERAL: The patient is well-developed and well-nourished male, in no apparent distress. HEENT: Eyes, pupils are equal responsive to light and accommodation. Extraocular movements are intact. NECK: Supple without lymphadenopathy. CHEST: Lungs are clear to auscultation bilaterally without wheezes or rales. CARDIOVASCULAR: Regular rate. S1 and S2 are normal without murmurs, rubs, or gallops. ABDOMEN: Soft, nontender, nondistended. Positive bowel sounds. No evidence of hepatosplenomegaly. Currently, no rebound or guarding noted. EXTREMITIES: Negative for clubbing, cyanosis, or edema. RECTAL/GENITAL: Refused. NEUROLOGIC: Cranial nerves II to XII are grossly intact without focal deficits. Motor strength is 5/5 bilaterally. Deep tendon reflexes are 2+ plantar. LABORATORY STUDIES: WBC 5.8, hemoglobin 10.9, hematocrit 32.3, platelets 338,000. Sodium 137, potassium 4.8, chloride 97, CO2 32, BUN , creatinine 3.4, glucose 97. Troponin elevated at 0.135. ASSESSMENT: This is an 81-year-old male. 1. Altered mental status. 2. Diabetes type 2. 3. End-stage renal disease. 4. Hypertension. TREATMENT: 1. Altered mental status. Initial CAT scan of the brain in the emergency room was reported as no acute disease. The patient seems to be more alert today. A Neurology consultation has been obtained with Dr. Mahmood. 2. Diabetes type 2. The patient has been started on NovoLog sliding scale. 3. End-stage renal disease. A Nephrology consultation has been obtained with Dr. Franco. The patient's last hemodialysis was on Tuesday October 31, 2017. 4. Hypertension. Continue lisinopril, Norvasc, and metoprolol as above. Jack Olivarez M.D. DR: Luis Alberto JOB#: [id number] CC:
[2017-11-02] VITALS: BP 144/62
[2017-11-02 04:00] VITALS: BP 128/67
[2017-11-02] MEDS: NovoLOG Insulin Flexpen SUBQ SCH ×4 (05:39→21:51)
[2017-11-02 07:57] LABS: BASOPHILS % (AUTO) 1.6 % (0.0-2.0); EOSINOPHILS % (AUTO) 4.4 % (0.0-3.0); HEMATOCRIT 26.7 % (42.0-52.0); LYMPHOCYTES % (AUTO) 11.4 % (20.0-45.0); MEAN CORPUSCULAR VOLUME 99 FL (80-99); MONOCYTES % (AUTO) 9.4 % (1.0-10.0); NEUTROPHILS % (AUTO) 73.2 % (45.0-75.0); PLATELET COUNT 359 K/UL (150-450); RED CELL DISTRIBUTION WIDTH 12.8 % (11.6-14.8); WHITE BLOOD COUNT 6.7 K/UL (4.8-10.8)
[2017-11-02 08:00] VITALS: BP 138/72
[2017-11-02 08:21] LABS: ALANINE AMINOTRANSFERASE 26 U/L (12-78); ALBUMIN 3.3 G/DL (3.4-5.0); ALBUMIN/GLOBULIN RATIO 0.8 (1.0-2.7); ALKALINE PHOSPHATASE 65 U/L (46-116); ANION GAP 9 mmol/L (5-15); ASPARTATE AMINO TRANSFERASE 27 U/L (15-37); BILIRUBIN,TOTAL 0.6 MG/DL (0.2-1.0); BLOOD UREA NITROGEN 41 mg/dL (7-18); CALCIUM 8.8 MG/DL (8.5-10.1); CARBON DIOXIDE 34 MMOL/L (21-32); CHLORIDE 98 MMOL/L (98-107); CHOLESTEROL 141 MG/DL (< 200); CREATININE 6.7 MG/DL (0.55-1.30); GAMMA GLUTAMYL TRANSPEPTIDASE 22 U/L (5-85); HDL CHOLESTEROL 66 MG/DL (40-60); POTASSIUM 4.2 MMOL/L (3.5-5.1); SODIUM 141 MMOL/L (136-145); TRIGLYCERIDES 41 MG/DL (30-150)
[2017-11-02] MEDS ORDERED: Aspirin Baby 81mg ORAL SCH (09:00)
[2017-11-02 09:10] LABS: AMMONIA 17 umol/L (11-32)
[2017-11-02] MEDS: Lisinopril 2.5mg tab ORAL SCH ×2 (10:02→21:49)
[2017-11-02] MEDS: Heparin 5000 units/ml inj SUBQ SCH ×2 (10:05→21:52)
--- NOTE | 2017-11-02 11:05 | Internal Med Progress Note ---
Subjective Date of Service: Nov 02, 2017 Physician Name Carbajal,Sunny Attending Physician Evin Newton MD Current Medications Medications (Trade) Dose Ordered Sig/Tanya Route PRN Reason Start Time Stop Time Status Last Admin Dose Admin Acetaminophen (Tylenol) 650 mg Q4H PRN ORAL fever 10/31/17 18:45 11/30/17 18:44 Albuterol/ Ipratropium (Albuterol/ Ipratropium) 3 ml Q6H PRN HHN dyspnea 10/31/17 18:45 11/05/17 18:44 Amlodipine Besylate (Norvasc) 2.5 mg DAILY ORAL 11/01/17 09:00 12/01/17 08:59 11/02/17 10:03 Aspirin (ASA) 81 mg DAILY ORAL 11/02/17 09:00 12/02/17 08:59 11/02/17 10:02 Clonidine HCl (Catapres Tab) 0.1 mg Q4H PRN ORAL For High Blood Pressure 10/31/17 18:45 11/30/17 18:44 Dextrose (Dextrose 50%) STAT PRN IV Hypoglycemia 10/31/17 18:45 11/30/17 18:44 Heparin Sodium (Porcine) (Heparin 5000 units/ml) 5,000 units EVERY 12 HOURS SUBQ 10/31/17 21:00 11/30/17 20:59 11/02/17 10:05 Insulin Aspart (NovoLOG) BEFORE MEALS AND HS SUBQ 10/31/17 21:00 11/30/17 20:59 11/02/17 05:39 Lisinopril (Zestril) 2.5 mg Q12HR ORAL 10/31/17 21:00 11/30/17 20:59 11/02/17 10:02 Morphine Sulfate (Morphine Sulfate) 1 mg Q4H PRN IVP For Pain 10/31/17 18:45 11/07/17 18:44 Nitroglycerin (Ntg) 1 patch Q24H TDERMAL 11/01/17 18:30 12/01/17 18:29 11/01/17 20:36 Ondansetron HCl (Zofran) 4 mg Q6H PRN IVP Nausea & Vomiting 10/31/17 18:45 11/30/17 18:44 Polyethylene Glycol (Miralax) 17 gm HSPRN PRN ORAL Constipation 10/31/17 18:45 11/30/17 18:44 Risperidone (RisperDAL) 0.5 mg BEDTIME ORAL 11/02/17 21:00 12/02/17 20:59 Zolpidem Tartrate (Ambien) 5 mg HSPRN PRN ORAL Insomnia 10/31/17 18:45 11/07/17 18:44 Allergies: Coded Allergies: NO KNOWN ALLERGIES (Verified Allergy, Unknown, 10/23/17) ROS Limited/Unobtainable: No Constitutional: Reports: no symptoms HEENT: Reports: no symptoms Cardiovascular: Reports: no symptoms Respiratory: Reports: no symptoms Gastrointestinal/Abdominal: Reports: no symptoms Genitourinary: Reports: no symptoms Neurologic/Psychiatric: Reports: no symptoms Subjective 81 YO M admitted with altered mental status. Now elevated troponin and CHF. Cover for Int Giovanni-Dr Newton Objective Last Vital Signs Date Time Temp Pulse Resp B/P (MAP) Pulse Ox O2 Delivery O2 Flow Rate FiO2 11/02/17 10:03 87 138/72 11/02/17 08:00 97.2 20 94 Nasal Cannula 2.0 97.2 11/02/17 07:10 28 General Appearance: WD/WN, no apparent distress, alert EENT: PERRL/EOMI, normal ENT inspection, TMs normal Neck: non-tender, normal alignment, supple, normal inspection Cardiovascular: normal peripheral pulses, normal rate, regular rhythm, no gallop/murmur, no JVD Respiratory/Chest: chest wall non-tender, lungs clear, normal breath sounds, no respiratory distress, no accessory muscle use Abdomen: normal bowel sounds, non tender, soft, no organomegaly, no mass Extremities: normal range of motion, non-tender Edema: trace edema Skin: normal pigmentation, warm/dry Laboratory Tests Test 11/02/17 06:10 White Blood Count 6.7 K/UL (4.8-10.8) Red Blood Count 2.70 M/UL (4.70-6.10) L Hemoglobin 9.0 G/DL (14.2-18.0) L Hematocrit 26.7 % (42.0-52.0) L Mean Corpuscular Volume 99 FL (80-99) Mean Corpuscular Hemoglobin 33.4 PG (27.0-31.0) H Mean Corpuscular Hemoglobin Concent 33.7 G/DL (32.0-36.0) Red Cell Distribution Width 12.8 % (11.6-14.8) Platelet Count 359 K/UL (150-450) Mean Platelet Volume 5.8 FL (6.5-10.1) L Neutrophils (%) (Auto) 73.2 % (45.0-75.0) Lymphocytes (%) (Auto) 11.4 % (20.0-45.0) L Monocytes (%) (Auto) 9.4 % (1.0-10.0) Eosinophils (%) (Auto) 4.4 % (0.0-3.0) H Basophils (%) (Auto) 1.6 % (0.0-2.0) Sodium Level 141 MMOL/L (136-145) Potassium Level 4.2 MMOL/L (3.5-5.1) Chloride Level 98 MMOL/L (98-107) Carbon Dioxide Level 34 MMOL/L (21-32) H Anion Gap 9 mmol/L (5-15) Blood Urea Nitrogen 41 mg/dL (7-18) H Creatinine 6.7 MG/DL (0.55-1.30) H Estimat Glomerular Filtration Rate mL/min (>60) Glucose Level 74 MG/DL (74-106) Hemoglobin A1c 7.7 % (4.3-6.0) H Uric Acid 4.5 MG/DL (2.6-7.2) Calcium Level 8.8 MG/DL (8.5-10.1) Phosphorus Level 6.0 MG/DL (2.5-4.9) H Magnesium Level 2.4 MG/DL (1.8-2.4) Total Bilirubin 0.6 MG/DL (0.2-1.0) Gamma Glutamyl Transpeptidase 22 U/L (5-85) Aspartate Amino Transf (AST/SGOT) 27 U/L (15-37) Alanine Aminotransferase (ALT/SGPT) 26 U/L (12-78) Alkaline Phosphatase 65 U/L (46-116) Ammonia 17 umol/L (11-32) Troponin I 0.016 ng/mL (0.000-0.056) Pro-B-Type Natriuretic Peptide 3214 pg/mL (0-125) H Total Protein 7.7 G/DL (6.4-8.2) Albumin 3.3 G/DL (3.4-5.0) L Globulin 4.4 g/dL Albumin/Globulin Ratio 0.8 (1.0-2.7) L Triglycerides Level 41 MG/DL (30-150) Cholesterol Level 141 MG/DL (< 200) LDL Cholesterol 75 mg/dL (<100) HDL Cholesterol 66 MG/DL (40-60) H Cholesterol/HDL Ratio 2.1 (3.3-4.4) L Vitamin B12 Level > 2000 PG/ML (193-986) H Folate 50.6 NG/ML (8.6-58.9) Thyroid Stimulating Hormone (TSH) 1.022 uiU/mL (0.358-3.740) Microbiology Date/Time Source Procedure Growth Status 10/31/17 20:50 Nasal Nares MRSA Culture - Final NO METHICILLIN RESISTANT STAPH AUREUS... Complete Intake and Output 11/01/17 11/02/17 19:00 07:00 Intake Total 708 ml 240 ml Balance 708 ml 240 ml Intake Oral 708 ml 240 ml # Voids 1 # Bowel Movements 1 Assessment/Plan Problem List: (1) ESRD (end stage renal disease) on dialysis Assessment & Plan: See nephrology note. Hemodialysis tomorrow. (2) Diabetes mellitus, type II (3) HTN (hypertension) Assessment & Plan: Continue lisinipril (4) Altered mental status (5) Elevated troponin Assessment & Plan: Await cardiology consult. Status: progressing Assessment/Plan Discharge planning: Home with home health Leighann [phone] SUNNY CARBAJAL Nov 02, 2017 11:05
[2017-11-02 12:00] VITALS: BP 142/74
--- NOTE | 2017-11-02 13:10 | Pulmonology Progress Note ---
Assessment/Plan Problems: (1) Acute encephalopathy (2) Subdural hematoma (3) HTN (hypertension) (4) ESRD (end stage renal disease) on dialysis (5) Diabetes mellitus (6) ESRF (end stage renal failure) (7) Pacemaker Assessment/Plan improving HD check electrolytes doing better sliding scale diabetic diet dc probably tomorrow to his home, as wants him to go home Subjective ROS Limited/Unobtainable: No Constitutional: Reports: no symptoms HEENT: Repors: no symptoms Allergies: Coded Allergies: NO KNOWN ALLERGIES (Verified Allergy, Unknown, 10/23/17) Objective Last 24 Hour Vital Signs Date Time Temp Pulse Resp B/P (MAP) Pulse Ox O2 Delivery O2 Flow Rate FiO2 11/02/17 12:00 97.7 88 20 142/74 96 Nasal Cannula 2.0 97.7 11/02/17 10:03 87 138/72 11/02/17 10:02 138/72 11/02/17 08:00 97.2 87 20 138/72 94 Nasal Cannula 2.0 97.2 11/02/17 08:00 86 11/02/17 07:10 Nasal Cannula 2.0 28 11/02/17 07:10 83 16 Nasal Cannula 2.0 28 11/02/17 04:00 82 11/02/17 04:00 97.0 88 20 128/67 97 Nasal Cannula 2.0 97.0 11/02/17 00:00 107 11/02/17 00:00 97.7 84 20 144/62 93 Nasal Cannula 2.0 97.7 11/02/17 00:00 83 11/01/17 23:34 Nasal Cannula 2.0 28 11/01/17 23:31 90 18 Nasal Cannula 2.0 28 11/01/17 20:36 136/106 11/01/17 20:36 136/106 11/01/17 20:00 98.4 84 20 136/106 96 Nasal Cannula 2.0 98.4 11/01/17 20:00 82 11/01/17 16:00 97.0 92 18 123/57 96 Nasal Cannula 2.0 97.0 11/01/17 15:31 90 Intake and Output 11/01/17 11/02/17 19:00 07:00 Intake Total 708 ml 240 ml Balance 708 ml 240 ml Intake Oral 708 ml 240 ml # Voids 1 # Bowel Movements 1 General Appearance: WD/WN, no acute distress HEENT: atraumatic Respiratory/Chest: chest wall non-tender, lungs clear Cardiovascular: normal peripheral pulses, normal rate Abdomen: normal bowel sounds, soft, non tender Genitourinary: normal external genitalia Skin: no rash Neurologic/Psychiatric: 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 Complete Laboratory Tests 11/02/17 06:10: White Blood Count 6.7, Red Blood Count 2.70L, Hemoglobin 9.0L, Hematocrit 26.7L , Mean Corpuscular Volume 99, Mean Corpuscular Hemoglobin 33.4H, Mean Corpuscular Hemoglobin Concent 33.7, Red Cell Distribution Width 12.8, Platelet Count 359, Mean Platelet Volume 5.8L, Neutrophils (%) (Auto) 73.2, Lymphocytes ( %) (Auto) 11.4L, Monocytes (%) (Auto) 9.4, Eosinophils (%) (Auto) 4.4H, Basophils (%) (Auto) 1.6, Sodium Level 141, Potassium Level 4.2, Chloride Level 98, Carbon Dioxide Level 34H, Anion Gap 9, Blood Urea Nitrogen 41H, Creatinine 6.7H, Estimat Glomerular Filtration Rate , Glucose Level 74, Hemoglobin A1c 7.7H , Uric Acid 4.5, Calcium Level 8.8, Phosphorus Level 6.0H, Magnesium Level 2.4, Total Bilirubin 0.6, Gamma Glutamyl Transpeptidase 22, Aspartate Amino Transf ( AST/SGOT) 27, Alanine Aminotransferase (ALT/SGPT) 26, Alkaline Phosphatase 65, Ammonia 17, Troponin I 0.016, Pro-B-Type Natriuretic Peptide 3214H, Total Protein 7.7, Albumin 3.3L, Globulin 4.4, Albumin/Globulin Ratio 0.8L, Triglycerides Level 41, Cholesterol Level 141, LDL Cholesterol 75, HDL Cholesterol 66H, Cholesterol/HDL Ratio 2.1L, Vitamin B12 Level > 2000H, Folate 50.6, Thyroid Stimulating Hormone (TSH) 1.022 Current Medications Medications (Trade) Dose Ordered Sig/Tanya Route PRN Reason Start Time Stop Time Status Last Admin Dose Admin Acetaminophen (Tylenol) 650 mg Q4H PRN ORAL fever 10/31/17 18:45 11/30/17 18:44 Albuterol/ Ipratropium (Albuterol/ Ipratropium) 3 ml Q6H PRN HHN dyspnea 10/31/17 18:45 11/05/17 18:44 Amlodipine Besylate (Norvasc) 2.5 mg DAILY ORAL 11/01/17 09:00 12/01/17 08:59 11/02/17 10:03 Aspirin (ASA) 81 mg DAILY ORAL 11/02/17 09:00 12/02/17 08:59 11/02/17 10:02 Clonidine HCl (Catapres Tab) 0.1 mg Q4H PRN ORAL For High Blood Pressure 10/31/17 18:45 11/30/17 18:44 Dextrose (Dextrose 50%) STAT PRN IV Hypoglycemia 10/31/17 18:45 11/30/17 18:44 Heparin Sodium (Porcine) (Heparin 5000 units/ml) 5,000 units EVERY 12 HOURS SUBQ 10/31/17 21:00 11/30/17 20:59 11/02/17 10:05 Insulin Aspart (NovoLOG) BEFORE MEALS AND HS SUBQ 10/31/17 21:00 11/30/17 20:59 11/02/17 11:58 Lisinopril (Zestril) 2.5 mg Q12HR ORAL 10/31/17 21:00 11/30/17 20:59 11/02/17 10:02 Morphine Sulfate (Morphine Sulfate) 1 mg Q4H PRN IVP For Pain 10/31/17 18:45 11/07/17 18:44 Nitroglycerin (Ntg) 1 patch Q24H TDERMAL 11/01/17 18:30 12/01/17 18:29 11/01/17 20:36 Ondansetron HCl (Zofran) 4 mg Q6H PRN IVP Nausea & Vomiting 10/31/17 18:45 11/30/17 18:44 Polyethylene Glycol (Miralax) 17 gm HSPRN PRN ORAL Constipation 10/31/17 18:45 11/30/17 18:44 Risperidone (RisperDAL) 0.5 mg BEDTIME ORAL 11/02/17 21:00 12/02/17 20:59 Zolpidem Tartrate (Ambien) 5 mg HSPRN PRN ORAL Insomnia 10/31/17 18:45 11/07/17 18:44 Ginny Zhao MD Nov 02, 2017 13:09
--- NOTE | 2017-11-02 15:04 | Wound Care Consultation ---
Wound Assessment Wound Assessment : Wound Number: 1 Wound Present on Admission: Yes New Wound: No Status Change of Wound: No Wound Location Body Site Modif: left, right Wound Location Body Site: arm Damaris Test: Does not Damaris Traumatic Injury Wounds: Skin Tear Wound Thickness: Partial Thickness Percent of Wound [place]/Red: 100 Wound Drainage Description: Serosanguineous Wound Drainage Amount: Scant Wound Drainage Odor: None/Absent Tissue Surrounding Wound: Erythemic Wound General Appearance: Reddened Wound Comment Skin tear without flap on both left and right arms Recommendation -Local wound care per protocol -Keep clean and dry -Assess and f/u accordingly for any changes NEDA TATE RN Nov 02, 2017 15:04
--- NOTE | 2017-11-02 15:09 | Nephrology Progress Note ---
Assessment/Plan Problem List: (1) HTN (hypertension) (2) Pacemaker (3) ESRD (end stage renal disease) on dialysis (4) Acute encephalopathy Assessment encephalopathy ESRD DM HTN Pacer / CHF Plan Plan: Dialysis as needed, in am Adjust BP meds- per neuro per orders Subjective ROS Limited/Unobtainable: No Constitutional: Reports: malaise Objective Objective Last 24 Hour Vital Signs Date Time Temp Pulse Resp B/P (MAP) Pulse Ox O2 Delivery O2 Flow Rate FiO2 11/02/17 12:00 97.7 88 20 142/74 96 Nasal Cannula 2.0 97.7 11/02/17 10:03 87 138/72 11/02/17 10:02 138/72 11/02/17 08:00 97.2 87 20 138/72 94 Nasal Cannula 2.0 97.2 11/02/17 08:00 86 11/02/17 07:10 Nasal Cannula 2.0 28 11/02/17 07:10 83 16 Nasal Cannula 2.0 28 11/02/17 04:00 82 11/02/17 04:00 97.0 88 20 128/67 97 Nasal Cannula 2.0 97.0 11/02/17 00:00 107 11/02/17 00:00 97.7 84 20 144/62 93 Nasal Cannula 2.0 97.7 11/02/17 00:00 83 11/01/17 23:34 Nasal Cannula 2.0 28 11/01/17 23:31 90 18 Nasal Cannula 2.0 28 11/01/17 20:36 136/106 11/01/17 20:36 136/106 11/01/17 20:00 98.4 84 20 136/106 96 Nasal Cannula 2.0 98.4 11/01/17 20:00 82 11/01/17 16:00 97.0 92 18 123/57 96 Nasal Cannula 2.0 97.0 11/01/17 15:31 90 Intake and Output 11/01/17 11/02/17 19:00 07:00 Intake Total 708 ml 240 ml Balance 708 ml 240 ml Intake Oral 708 ml 240 ml # Voids 1 # Bowel Movements 1 Laboratory Tests 11/02/17 06:10: White Blood Count 6.7, Red Blood Count 2.70L, Hemoglobin 9.0L, Hematocrit 26.7L , Mean Corpuscular Volume 99, Mean Corpuscular Hemoglobin 33.4H, Mean Corpuscular Hemoglobin Concent 33.7, Red Cell Distribution Width 12.8, Platelet Count 359, Mean Platelet Volume 5.8L, Neutrophils (%) (Auto) 73.2, Lymphocytes ( %) (Auto) 11.4L, Monocytes (%) (Auto) 9.4, Eosinophils (%) (Auto) 4.4H, Basophils (%) (Auto) 1.6, Sodium Level 141, Potassium Level 4.2, Chloride Level 98, Carbon Dioxide Level 34H, Anion Gap 9, Blood Urea Nitrogen 41H, Creatinine 6.7H, Estimat Glomerular Filtration Rate , Glucose Level 74, Hemoglobin A1c 7.7H , Uric Acid 4.5, Calcium Level 8.8, Phosphorus Level 6.0H, Magnesium Level 2.4, Total Bilirubin 0.6, Gamma Glutamyl Transpeptidase 22, Aspartate Amino Transf ( AST/SGOT) 27, Alanine Aminotransferase (ALT/SGPT) 26, Alkaline Phosphatase 65, Ammonia 17, Troponin I 0.016, Pro-B-Type Natriuretic Peptide 3214H, Total Protein 7.7, Albumin 3.3L, Globulin 4.4, Albumin/Globulin Ratio 0.8L, Triglycerides Level 41, Cholesterol Level 141, LDL Cholesterol 75, HDL Cholesterol 66H, Cholesterol/HDL Ratio 2.1L, Vitamin B12 Level > 2000H, Folate 50.6, Thyroid Stimulating Hormone (TSH) 1.022 Height (Feet): 5 Weight (Pounds): 190 General Appearance: no apparent distress Respiratory/Chest: decreased breath sounds Abdomen: soft Neurologic: other - confused MELY SINGH Nov 02, 2017 15:09
--- NOTE | 2017-11-02 15:26 | Emergency Room Report ---
History of Present Illness General Chief Complaint: Altered Level of Consciousness Source: Medical Record Present Illness Allergies: Coded Allergies: NO KNOWN ALLERGIES (Verified Allergy, Unknown, 10/23/17) Nursing Documentation-[facility] Past Medical History: No History, Except For Hx Cardiac Problems: No Hx Hypertension: Yes Hx Pacemaker: Yes Hx Diabetes: Yes Hx Cancer: No Hx Gastrointestinal Problems: No Hx Dialysis: Yes - Tue, Jacob, Sat/ESRD Hx Neurological Problems: No Physical Exam Vital Signs Date Time Temp Pulse Resp B/P (MAP) Pulse Ox O2 Delivery O2 Flow Rate FiO2 10/31/17 15:51 97.7 109 16 137/64 97 Nasal Cannula 2.0 97.7 11/01/17 23:31 28 Procedures Intubation Intubation : Consent: Emergent Time of Intubation: 14:50 Tube Size (cm): 7.0 Medications: Etomidate Breath Sounds after Intubation: equal Intubation Complications: no complications Post Intubation Xray: Yes Attempts: One Patient Tolerated: Well Complications: None Medical Decision Making Diagnostic Impression: Primary Impression: Acute encephalopathy Additional Impressions: Elevated troponin ESRD (end stage renal disease) on dialysis Last Vital Signs Date Time Temp Pulse Resp B/P (MAP) Pulse Ox O2 Delivery O2 Flow Rate FiO2 11/02/17 12:00 97.7 88 20 142/74 96 Nasal Cannula 2.0 97.7 11/02/17 07:10 28 Disposition: ADMITTED INPATIENT Condition: Serious Referrals: NOT CHOSEN IPA/,REFERRING (PCP) Daryl Willingham Nov 02, 2017 15:25
[2017-11-02 16:00] VITALS: BP 124/52
[2017-11-02] MEDS: Nitroglycerin Patch 0.2mg/hr TDERMAL SCH (18:00)
[2017-11-02] MEDS ORDERED: Renvela 800mg Pkt NG SCH (18:00)
--- NOTE | 2017-11-02 18:00 | Progress Note ---
DATE: 11/02/2017 SUBJECTIVE: The patient is in bed resting. I am well familiar with the patient from [facility]. The patient is Green[place]ic speaking and he is having waxing and waning consciousness, at times confused. MENTAL STATUS EXAMINATION: The patient is alert and oriented x2. Mood is neutral to agitated. Affect is flat. Thought process, there is a paucity of thought content. Thought content, no suicidal or homicidal ideations. ASSESSMENT: 1. Encephalopathy due to general medical condition. 2. Dementia with behavior disturbance. PLAN: 1. Risperidone 0.5 mg p.o. at bedtime. 2. We will continue to follow and readjust the medications. Umair Matthews M.D. DR: KIERSTEN JOB#: [id number] CC:
[2017-11-02] MEDS ORDERED: ALPHAGAN P5 M2 OP (18:20)
[2017-11-02] MEDS ORDERED: TIMOLOL MALEATE5 M2 OP (18:20)
--- NOTE | 2017-11-02 19:08 | Cardiology Progress Note ---
Assessment/Plan Assessment/Plan [id number] Objective Last 24 Hour Vital Signs Date Time Temp Pulse Resp B/P (MAP) Pulse Ox O2 Delivery O2 Flow Rate FiO2 11/02/17 18:00 124/52 11/02/17 16:00 97.7 83 20 124/52 95 Nasal Cannula 2.0 97.7 11/02/17 16:00 83 11/02/17 12:00 97.7 88 20 142/74 96 Nasal Cannula 2.0 97.7 11/02/17 12:00 90 11/02/17 10:03 87 138/72 11/02/17 10:02 138/72 11/02/17 08:00 97.2 87 20 138/72 94 Nasal Cannula 2.0 97.2 11/02/17 08:00 86 11/02/17 07:10 Nasal Cannula 2.0 28 11/02/17 07:10 83 16 Nasal Cannula 2.0 28 11/02/17 04:00 82 11/02/17 04:00 97.0 88 20 128/67 97 Nasal Cannula 2.0 97.0 11/02/17 00:00 107 11/02/17 00:00 97.7 84 20 144/62 93 Nasal Cannula 2.0 97.7 11/02/17 00:00 83 11/01/17 23:34 Nasal Cannula 2.0 28 11/01/17 23:31 90 18 Nasal Cannula 2.0 28 11/01/17 20:36 136/106 11/01/17 20:36 136/106 11/01/17 20:00 98.4 84 20 136/106 96 Nasal Cannula 2.0 98.4 11/01/17 20:00 82 Intake and Output 11/01/17 11/02/17 19:00 07:00 Intake Total 708 ml 240 ml Balance 708 ml 240 ml Intake Oral 708 ml 240 ml # Voids 1 # Bowel Movements 1 Laboratory Tests Test 11/02/17 06:10 White Blood Count 6.7 K/UL (4.8-10.8) Red Blood Count 2.70 M/UL (4.70-6.10) L Hemoglobin 9.0 G/DL (14.2-18.0) L Hematocrit 26.7 % (42.0-52.0) L Mean Corpuscular Volume 99 FL (80-99) Mean Corpuscular Hemoglobin 33.4 PG (27.0-31.0) H Mean Corpuscular Hemoglobin Concent 33.7 G/DL (32.0-36.0) Red Cell Distribution Width 12.8 % (11.6-14.8) Platelet Count 359 K/UL (150-450) Mean Platelet Volume 5.8 FL (6.5-10.1) L Neutrophils (%) (Auto) 73.2 % (45.0-75.0) Lymphocytes (%) (Auto) 11.4 % (20.0-45.0) L Monocytes (%) (Auto) 9.4 % (1.0-10.0) Eosinophils (%) (Auto) 4.4 % (0.0-3.0) H Basophils (%) (Auto) 1.6 % (0.0-2.0) Sodium Level 141 MMOL/L (136-145) Potassium Level 4.2 MMOL/L (3.5-5.1) Chloride Level 98 MMOL/L (98-107) Carbon Dioxide Level 34 MMOL/L (21-32) H Anion Gap 9 mmol/L (5-15) Blood Urea Nitrogen 41 mg/dL (7-18) H Creatinine 6.7 MG/DL (0.55-1.30) H Estimat Glomerular Filtration Rate mL/min (>60) Glucose Level 74 MG/DL (74-106) Hemoglobin A1c 7.7 % (4.3-6.0) H Uric Acid 4.5 MG/DL (2.6-7.2) Calcium Level 8.8 MG/DL (8.5-10.1) Phosphorus Level 6.0 MG/DL (2.5-4.9) H Magnesium Level 2.4 MG/DL (1.8-2.4) Total Bilirubin 0.6 MG/DL (0.2-1.0) Gamma Glutamyl Transpeptidase 22 U/L (5-85) Aspartate Amino Transf (AST/SGOT) 27 U/L (15-37) Alanine Aminotransferase (ALT/SGPT) 26 U/L (12-78) Alkaline Phosphatase 65 U/L (46-116) Ammonia 17 umol/L (11-32) Troponin I 0.016 ng/mL (0.000-0.056) Pro-B-Type Natriuretic Peptide 3214 pg/mL (0-125) H Total Protein 7.7 G/DL (6.4-8.2) Albumin 3.3 G/DL (3.4-5.0) L Globulin 4.4 g/dL Albumin/Globulin Ratio 0.8 (1.0-2.7) L Triglycerides Level 41 MG/DL (30-150) Cholesterol Level 141 MG/DL (< 200) LDL Cholesterol 75 mg/dL (<100) HDL Cholesterol 66 MG/DL (40-60) H Cholesterol/HDL Ratio 2.1 (3.3-4.4) L Vitamin B12 Level > 2000 PG/ML (193-986) H Folate 50.6 NG/ML (8.6-58.9) Thyroid Stimulating Hormone (TSH) 1.022 uiU/mL (0.358-3.740) Microbiology Date/Time Source Procedure Growth Status 10/31/17 20:50 Nasal Nares MRSA Culture - Final NO METHICILLIN RESISTANT STAPH AUREUS... Complete CHRISTINA KU Nov 02, 2017 19:08
[2017-11-02 20:00] VITALS: BP 140/59
--- NOTE | 2017-11-02 20:45 | Consultation ---
DATE OF CONSULTATION: 11/02/2017 CARDIAC CONSULTATION CONSULTING PHYSICIAN: Logan Walsh M.D. REFERRING PHYSICIAN: Jack Olivarez M.D. REASON FOR REFERRAL: Abnormal cardiac enzymes. HISTORY OF PRESENT ILLNESS: This is an elderly male, who is brought up to the emergency room because of alteration of mental status. The patient himself is unable to provide that information and information is obtained from review of the photo engraver run sheet as well as the emergency room physician's note. The [facility] ambulance report indicates that the patient was brought to the emergency room because of altered mental status. Blood pressure 156/78 with a heart rate of 112 and 96% saturation and blood sugar of 106 at that time with the blood pressure improving down to 137/84. Supraventricular tachycardia apparently was noted on the EKG that they performed and the patient was brought to the emergency room at [facility]. Unfortunately, the EKG that reportedly showed events of supraventricular tachycardia is not available and so that information is not corroborated by the records by the emergency room physician either. Nevertheless, at this time, the patient is arousable and responsive. Denies any chest pain, shortness of breath, palpitations, dizziness, or lightheadedness. PAST MEDICAL HISTORY: He has extensive past medical history. He was recently here hospitalized at [facility], I actually saw him during that hospitalization, and appears that he had at that time concern with encephalopathy, chronic subdural hematomas, end-stage renal disease, on hemodialysis, abnormal cardiac enzymes of questionable significance in light of renal insufficiency requiring dialysis, diabetes mellitus, hypertension, hyperlipidemia, and he has had intermittent episodes of confusion during that hospitalization stay, but eventually was discharged back to facility. The patient's past history also includes diabetes mellitus and history of upper extremity brachiocephalic AV shunt placement in 2008, systemic hypertension, hyperlipidemia, arthritis, gastroesophageal reflux disease, and history of permanent pacemaker implantation. ALLERGIES: He has no known drug allergies. SOCIAL HISTORY: He does not smoke or drink alcoholic beverages. Does not use any drugs. REVIEW OF SYSTEMS: GASTROINTESTINAL: He denies any nausea, vomiting, abdominal pain, diarrhea, constipation, or bloody stools. GENITOURINARY: Denies any burning on urination. PULMONARY: Denies any coughing or wheezing. CONSTITUTIONAL: Denies any fever, chills, or night sweats. NEUROLOGIC: As mentioned, he came in because of altered mentation. PHYSICAL EXAMINATION: GENERAL: Shows be drowsy elderly gentleman, in no respiratory distress. NECK: Supple. No jugular venous distention. He has got short stature and large neck. LUNGS: Otherwise, clear to auscultation and percussion. CARDIAC: S1 is normal. S2 is normal. Regular rate and rhythm. No heaves or thrills noted. ABDOMEN: Soft and nontender. Positive bowel sounds. EXTREMITY: There is no clubbing, cyanosis, nor is there any edema. LABORATORY DATA: White count 6.7, hemoglobin 9, and a platelet count of 359,000 today. Sodium is 141, potassium 4.2, chloride 98, bicarbonate 34, BUN of 41, creatinine 6.7, glucose of 74, and A1c of 7.7. Phosphorus is 6.0. Troponin initially 0.135 and subsequently 0.016. The third one is pending. ProBNP on 3200 and total cholesterol is 141 and HDL of 66 and LDL of 77. B12 was greater than 2000. TSH of 1.002. He did have a stat preliminary radiology report that showed cardiomegaly, mild interstitial opacification, and edema likely related to a degree of fluid overload and an electrocardiogram is not available for review. Telemetry data shows sinus rhythm. ASSESSMENT AND PLAN: 1. Abnormal cardiac enzymes. 2. End-stage renal disease, on hemodialysis. 3. Recurrent episodes of acute confusional state. 4. Diabetes mellitus. 5. History of permanent pacemaker implantation. PLAN: This patient was seen in cardiac consultation. The patient does not have any chest pain at least at this time. However, information that he provided is suspicious for and EKG will be performed. Cardiac enzymes will be repeated tonight and tomorrow morning and he has had a recent echocardiogram that was performed during his last hospitalization and at that time, he had, this was five days ago, that showed ejection fraction of 60% to 65% and no significant wall motion abnormality and mild diastolic relaxation abnormality with a mild pulmonary hypertension. He will be followed. Further recommendations will be provided depending on the results of the above. Logan Walsh M.D. DR: BARRON JOB#: [id number] CC:
[2017-11-03] VITALS: BP 132/64
[2017-11-03 03:32] LABS: BASOPHILS % (AUTO) 0.8 % (0.0-2.0); EOSINOPHILS % (AUTO) 7.7 % (0.0-3.0); HEMATOCRIT 25.8 % (42.0-52.0); HEMOGLOBIN 8.5 G/DL (14.2-18.0); LYMPHOCYTES % (AUTO) 19.2 % (20.0-45.0); MEAN CORPUSCULAR VOLUME 98 FL (80-99); MONOCYTES % (AUTO) 11.4 % (1.0-10.0); NEUTROPHILS % (AUTO) 60.9 % (45.0-75.0); PLATELET COUNT 343 K/UL (150-450); RED BLOOD COUNT 2.63 M/UL (4.70-6.10); RED CELL DISTRIBUTION WIDTH 12.5 % (11.6-14.8); WHITE BLOOD COUNT 5.4 K/UL (4.8-10.8)
[2017-11-03 03:52] LABS: ANION GAP 9 mmol/L (5-15); BLOOD UREA NITROGEN 52 mg/dL (7-18); CALCIUM 8.7 MG/DL (8.5-10.1); CARBON DIOXIDE 32 MMOL/L (21-32); CHLORIDE 95 MMOL/L (98-107); CREATININE 7.9 MG/DL (0.55-1.30); POTASSIUM 4.4 MMOL/L (3.5-5.1); SODIUM 136 MMOL/L (136-145)
[2017-11-03 04:00] VITALS: BP 129/71
[2017-11-03] MEDS: NovoLOG Insulin Flexpen SUBQ SCH ×5 (06:30→21:06)
[2017-11-03 08:00] VITALS: BP 131/59
[2017-11-03] MEDS ORDERED: Brimonidine 0.2% Opth Sol BOTH EYES SCH (09:00)
[2017-11-03] MEDS ORDERED: Timolol 0.5% Op Soln 2.5ml BOTH EYES SCH (09:00)
[2017-11-03] MEDS: Renvela 800mg Pkt NG SCH ×3 (09:50→17:38)
[2017-11-03] MEDS: Lisinopril 2.5mg tab ORAL SCH ×2 (09:50→21:05)
[2017-11-03] MEDS: Aspirin Baby 81mg ORAL SCH (09:50)
[2017-11-03] MEDS: Timolol 0.5% Op Soln 2.5ml BOTH EYES SCH ×2 (09:51→17:43)
[2017-11-03] MEDS: Brimonidine 0.2% Opth Sol BOTH EYES SCH ×2 (09:51→17:44)
[2017-11-03] MEDS: Heparin 5000 units/ml inj SUBQ SCH ×2 (09:52→21:06)
[2017-11-03] MEDS ORDERED: Morphine Sulfate 2mg/ml Inj IVP PRN (10:45)
[2017-11-03 12:00] VITALS: BP 107/59
[2017-11-03] MEDS ORDERED: Albuterol/Ipratropium 3ml neb HHN PRN (12:45)
--- NOTE | 2017-11-03 14:55 | Nephrology Progress Note ---
Assessment/Plan Problem List: (1) HTN (hypertension) (2) Pacemaker (3) ESRD (end stage renal disease) on dialysis (4) Acute encephalopathy Assessment encephalopathy ESRD DM HTN Pacer / CHF Plan Plan: Dialysis today Adjust BP meds- per neuro per orders Subjective ROS Limited/Unobtainable: No Constitutional: Reports: malaise Objective Objective Last 24 Hour Vital Signs Date Time Temp Pulse Resp B/P (MAP) Pulse Ox O2 Delivery O2 Flow Rate FiO2 11/03/17 12:00 97.5 76 22 107/59 97 Room Air 97.5 11/03/17 09:50 140/63 11/03/17 09:49 71 140/63 11/03/17 09:00 Room Air 21 11/03/17 09:00 80 16 Room Air 21 11/03/17 08:00 97.0 83 22 131/59 97 Room Air 97.0 11/03/17 04:00 97.6 76 18 129/71 98 Room Air 97.6 11/03/17 04:00 78 11/03/17 00:00 98.0 80 18 132/64 96 Room Air 98.0 11/03/17 00:00 79 11/02/17 21:49 140/59 11/02/17 20:00 97.9 89 20 140/59 95 Room Air 97.9 11/02/17 20:00 85 11/02/17 19:20 Room Air 21 11/02/17 19:20 81 16 Room Air 21 11/02/17 18:00 124/52 11/02/17 16:00 97.7 83 20 124/52 95 Nasal Cannula 2.0 97.7 11/02/17 16:00 83 Intake and Output 11/02/17 11/03/17 19:00 07:00 Intake Total 360 ml Output Total 100 ml Balance 360 ml -100 ml Intake Oral 360 ml Output Urine Total 100 ml Laboratory Tests 11/02/17 19:30: Troponin I 0.019 11/03/17 03:15: Troponin I 0.009, White Blood Count 5.4, Red Blood Count 2.63L, Hemoglobin 8.5L , Hematocrit 25.8L, Mean Corpuscular Volume 98, Mean Corpuscular Hemoglobin 32.3H, Mean Corpuscular Hemoglobin Concent 32.9, Red Cell Distribution Width 12.5, Platelet Count 343, Mean Platelet Volume 5.0L, Neutrophils (%) (Auto) 60.9 , Lymphocytes (%) (Auto) 19.2L, Monocytes (%) (Auto) 11.4H, Eosinophils (%) ( Auto) 7.7H, Basophils (%) (Auto) 0.8, Sodium Level 136, Potassium Level 4.4, Chloride Level 95L, Carbon Dioxide Level 32, Anion Gap 9, Blood Urea Nitrogen 52H, Creatinine 7.9H, Estimat Glomerular Filtration Rate , Glucose Level 64L, Calcium Level 8.7 11/03/17 10:45: Troponin I 0.008 Height (Feet): 5 Weight (Pounds): 190 General Appearance: no apparent distress Objective no change MELY SINGH Nov 03, 2017 14:55
[2017-11-03 16:00] VITALS: BP 105/61
--- NOTE | 2017-11-03 16:43 | Pulmonology Progress Note ---
Assessment/Plan Problems: (1) Acute encephalopathy (2) Subdural hematoma (3) HTN (hypertension) (4) ESRD (end stage renal disease) on dialysis (5) Diabetes mellitus (6) ESRF (end stage renal failure) (7) Pacemaker Assessment/Plan improving check electrolytes doing better sliding scale diabetic diet dc probably tomorrow to his home, as wants him to go home Subjective ROS Limited/Unobtainable: No Constitutional: Reports: no symptoms HEENT: Repors: no symptoms Respiratory: Reports: no symptoms Allergies: Coded Allergies: NO KNOWN ALLERGIES (Verified Allergy, Unknown, 10/23/17) Objective Last 24 Hour Vital Signs Date Time Temp Pulse Resp B/P (MAP) Pulse Ox O2 Delivery O2 Flow Rate FiO2 11/03/17 12:00 97.5 76 22 107/59 97 Room Air 97.5 11/03/17 09:50 140/63 11/03/17 09:49 71 140/63 11/03/17 09:00 Room Air 21 11/03/17 09:00 80 16 Room Air 21 11/03/17 08:00 97.0 83 22 131/59 97 Room Air 97.0 11/03/17 04:00 97.6 76 18 129/71 98 Room Air 97.6 11/03/17 04:00 78 11/03/17 00:00 98.0 80 18 132/64 96 Room Air 98.0 11/03/17 00:00 79 11/02/17 21:49 140/59 11/02/17 20:00 97.9 89 20 140/59 95 Room Air 97.9 11/02/17 20:00 85 11/02/17 19:20 Room Air 21 11/02/17 19:20 81 16 Room Air 21 11/02/17 18:00 124/52 Intake and Output 11/02/17 11/03/17 19:00 07:00 Intake Total 360 ml Output Total 100 ml Balance 360 ml -100 ml Intake Oral 360 ml Output Urine Total 100 ml General Appearance: WD/WN HEENT: normocephalic, atraumatic Respiratory/Chest: chest wall non-tender, lungs clear Cardiovascular: normal peripheral pulses, normal rate Abdomen: normal bowel sounds, soft, non tender Genitourinary: normal external genitalia Extremities: no clubbing Skin: no ulcers Neurologic/Psychiatric: no motor/sensory deficits, normal mood/affect Lymphatic: no groin adenopathy Musculoskeletal: normal muscle bulk Microbiology Date/Time Source Procedure Growth Status 10/31/17 20:50 Nasal Nares MRSA Culture - Final NO METHICILLIN RESISTANT STAPH AUREUS... Complete Laboratory Tests 11/02/17 19:30: Troponin I 0.019 11/03/17 03:15: Troponin I 0.009, White Blood Count 5.4, Red Blood Count 2.63L, Hemoglobin 8.5L , Hematocrit 25.8L, Mean Corpuscular Volume 98, Mean Corpuscular Hemoglobin 32.3H, Mean Corpuscular Hemoglobin Concent 32.9, Red Cell Distribution Width 12.5, Platelet Count 343, Mean Platelet Volume 5.0L, Neutrophils (%) (Auto) 60.9 , Lymphocytes (%) (Auto) 19.2L, Monocytes (%) (Auto) 11.4H, Eosinophils (%) ( Auto) 7.7H, Basophils (%) (Auto) 0.8, Sodium Level 136, Potassium Level 4.4, Chloride Level 95L, Carbon Dioxide Level 32, Anion Gap 9, Blood Urea Nitrogen 52H, Creatinine 7.9H, Estimat Glomerular Filtration Rate , Glucose Level 64L, Calcium Level 8.7 11/03/17 10:45: Troponin I 0.008 Current Medications Medications (Trade) Dose Ordered Sig/Tanya Route PRN Reason Start Time Stop Time Status Last Admin Dose Admin Acetaminophen (Tylenol) 650 mg Q4H PRN ORAL fever 11/03/17 10:45 11/30/17 18:44 Albuterol/ Ipratropium (Albuterol/ Ipratropium) 3 ml Q6H PRN HHN dyspnea 11/03/17 12:45 11/05/17 18:44 Amlodipine Besylate (Norvasc) 2.5 mg DAILY ORAL 11/03/17 09:00 12/01/17 08:59 11/03/17 09:49 Aspirin (ASA) 81 mg DAILY ORAL 11/03/17 09:00 12/02/17 08:59 11/03/17 09:50 Brimonidine Tartrate (Alphagan) 1 drop BID BOTH EYES 11/03/17 09:00 12/03/17 08:59 11/03/17 09:51 Clonidine HCl (Catapres Tab) 0.1 mg Q4H PRN ORAL For High Blood Pressure 11/03/17 10:45 11/30/17 18:44 Dextrose (Dextrose 50%) STAT PRN IV Hypoglycemia 11/03/17 18:45 11/30/17 18:44 Heparin Sodium (Porcine) (Heparin 5000 units/ml) 5,000 units EVERY 12 HOURS SUBQ 11/03/17 09:00 11/30/17 20:59 11/03/17 09:52 Insulin Aspart (NovoLOG) BEFORE MEALS AND HS SUBQ 11/03/17 11:30 11/30/17 20:59 11/03/17 13:19 Lisinopril (Zestril) 2.5 mg Q12HR ORAL 11/03/17 09:00 11/30/17 20:59 11/03/17 09:50 Morphine Sulfate (Morphine Sulfate) 1 mg Q4H PRN IVP For Pain 11/03/17 10:45 11/07/17 18:44 Nitroglycerin (Ntg) 1 patch Q24H TDERMAL 11/03/17 18:30 12/01/17 18:29 Ondansetron HCl (Zofran) 4 mg Q6H PRN IVP Nausea & Vomiting 11/03/17 12:45 11/30/17 18:44 Polyethylene Glycol (Miralax) 17 gm HSPRN PRN ORAL Constipation 11/03/17 18:45 11/30/17 18:44 Risperidone (RisperDAL) 0.5 mg BEDTIME ORAL 11/03/17 21:00 12/02/17 20:59 Sevelamer Carbonate (Renvela) 1,600 mg THREE TIMES A DAY NG 11/03/17 18:00 12/03/17 17:59 Timolol Maleate (Timoptic 0.5% Op Soln) 1 drop TWICE A DAY BOTH EYES 11/03/17 09:00 12/03/17 08:59 11/03/17 09:51 Zolpidem Tartrate (Ambien) 5 mg HSPRN PRN ORAL Insomnia 11/03/17 18:45 11/07/17 18:44 Ginny Zhao MD Nov 03, 2017 16:43
--- NOTE | 2017-11-03 17:40 | Internal Med Progress Note ---
Subjective Date of Service: Nov 03, 2017 Physician Name Sunny Olivarez Attending Physician Evin Newton MD Current Medications Medications (Trade) Dose Ordered Sig/Tanya Route PRN Reason Start Time Stop Time Status Last Admin Dose Admin Acetaminophen (Tylenol) 650 mg Q4H PRN ORAL fever 11/03/17 10:45 11/30/17 18:44 Albuterol/ Ipratropium (Albuterol/ Ipratropium) 3 ml Q6H PRN HHN dyspnea 11/03/17 12:45 11/05/17 18:44 Amlodipine Besylate (Norvasc) 2.5 mg DAILY ORAL 11/03/17 09:00 12/01/17 08:59 11/03/17 09:49 Aspirin (ASA) 81 mg DAILY ORAL 11/03/17 09:00 12/02/17 08:59 11/03/17 09:50 Brimonidine Tartrate (Alphagan) 1 drop BID BOTH EYES 11/03/17 09:00 12/03/17 08:59 11/03/17 09:51 Clonidine HCl (Catapres Tab) 0.1 mg Q4H PRN ORAL For High Blood Pressure 11/03/17 10:45 11/30/17 18:44 Dextrose (Dextrose 50%) STAT PRN IV Hypoglycemia 11/03/17 18:45 11/30/17 18:44 Heparin Sodium (Porcine) (Heparin 5000 units/ml) 5,000 units EVERY 12 HOURS SUBQ 11/03/17 09:00 11/30/17 20:59 11/03/17 09:52 Insulin Aspart (NovoLOG) BEFORE MEALS AND HS SUBQ 11/03/17 11:30 11/30/17 20:59 11/03/17 13:19 Lisinopril (Zestril) 2.5 mg Q12HR ORAL 11/03/17 09:00 11/30/17 20:59 11/03/17 09:50 Morphine Sulfate (Morphine Sulfate) 1 mg Q4H PRN IVP For Pain 11/03/17 10:45 11/07/17 18:44 Nitroglycerin (Ntg) 1 patch Q24H TDERMAL 11/03/17 18:30 12/01/17 18:29 Ondansetron HCl (Zofran) 4 mg Q6H PRN IVP Nausea & Vomiting 11/03/17 12:45 11/30/17 18:44 Polyethylene Glycol (Miralax) 17 gm HSPRN PRN ORAL Constipation 11/03/17 18:45 11/30/17 18:44 Risperidone (RisperDAL) 0.5 mg BEDTIME ORAL 11/03/17 21:00 12/02/17 20:59 Sevelamer Carbonate (Renvela) 1,600 mg THREE TIMES A DAY NG 11/03/17 18:00 12/03/17 17:59 Timolol Maleate (Timoptic 0.5% Op Soln) 1 drop TWICE A DAY BOTH EYES 11/03/17 09:00 12/03/17 08:59 11/03/17 09:51 Zolpidem Tartrate (Ambien) 5 mg HSPRN PRN ORAL Insomnia 11/03/17 18:45 11/07/17 18:44 Allergies: Coded Allergies: NO KNOWN ALLERGIES (Verified Allergy, Unknown, 10/23/17) ROS Limited/Unobtainable: No Constitutional: Reports: no symptoms HEENT: Reports: no symptoms Cardiovascular: Reports: no symptoms Respiratory: Reports: no symptoms Gastrointestinal/Abdominal: Reports: no symptoms Genitourinary: Reports: no symptoms Neurologic/Psychiatric: Reports: no symptoms Subjective 81 YO M admitted with altered mental status. Now elevated troponin and CHF. Cover for Int Giovanni-Dr Newton Objective Last Vital Signs Date Time Temp Pulse Resp B/P (MAP) Pulse Ox O2 Delivery O2 Flow Rate FiO2 11/03/17 15:11 Room Air 11/03/17 12:00 97.5 76 22 107/59 97 97.5 11/03/17 09:00 21 11/02/17 16:00 2.0 Laboratory Tests Test 11/02/17 19:30 11/03/17 03:15 11/03/17 10:45 Troponin I 0.019 ng/mL (0.000-0.056) 0.009 ng/mL (0.000-0.056) 0.008 ng/mL (0.000-0.056) White Blood Count 5.4 K/UL (4.8-10.8) Red Blood Count 2.63 M/UL (4.70-6.10) L Hemoglobin 8.5 G/DL (14.2-18.0) L Hematocrit 25.8 % (42.0-52.0) L Mean Corpuscular Volume 98 FL (80-99) Mean Corpuscular Hemoglobin 32.3 PG (27.0-31.0) H Mean Corpuscular Hemoglobin Concent 32.9 G/DL (32.0-36.0) Red Cell Distribution Width 12.5 % (11.6-14.8) Platelet Count 343 K/UL (150-450) Mean Platelet Volume 5.0 FL (6.5-10.1) L Neutrophils (%) (Auto) 60.9 % (45.0-75.0) Lymphocytes (%) (Auto) 19.2 % (20.0-45.0) L Monocytes (%) (Auto) 11.4 % (1.0-10.0) H Eosinophils (%) (Auto) 7.7 % (0.0-3.0) H Basophils (%) (Auto) 0.8 % (0.0-2.0) Sodium Level 136 MMOL/L (136-145) Potassium Level 4.4 MMOL/L (3.5-5.1) Chloride Level 95 MMOL/L (98-107) L Carbon Dioxide Level 32 MMOL/L (21-32) Anion Gap 9 mmol/L (5-15) Blood Urea Nitrogen 52 mg/dL (7-18) H Creatinine 7.9 MG/DL (0.55-1.30) H Estimat Glomerular Filtration Rate mL/min (>60) Glucose Level 64 MG/DL (74-106) L Calcium Level 8.7 MG/DL (8.5-10.1) Microbiology Date/Time Source Procedure Growth Status 10/31/17 20:50 Nasal Nares MRSA Culture - Final NO METHICILLIN RESISTANT STAPH AUREUS... Complete Intake and Output 11/02/17 11/03/17 19:00 07:00 Intake Total 360 ml Output Total 100 ml Balance 360 ml -100 ml Intake Oral 360 ml Output Urine Total 100 ml Objective General Appearance: WD/WN, no apparent distress, alert EENT: PERRL/EOMI, normal ENT inspection, TMs normal Neck: non-tender, normal alignment, supple, normal inspection Cardiovascular: normal peripheral pulses, normal rate, regular rhythm, no gallop/murmur, no JVD Respiratory/Chest: chest wall non-tender, lungs clear, normal breath sounds, no respiratory distress, no accessory muscle use Abdomen: normal bowel sounds, non tender, soft, no organomegaly, no mass Extremities: normal range of motion, non-tender Edema: trace edema Skin: normal pigmentation, warm/dry Assessment/Plan Problem List: (1) ESRD (end stage renal disease) on dialysis Assessment & Plan: See nephrology note. Hemodialysis tomorrow. (2) Diabetes mellitus, type II (3) HTN (hypertension) Assessment & Plan: Continue lisinipril (4) Altered mental status (5) Elevated troponin Assessment & Plan: Await cardiology consult. Assessment/Plan Discharge planning: [facility] son and SUNNY Alarcon Nov 03, 2017 17:40
[2017-11-03] MEDS: Nitroglycerin Patch 0.2mg/hr TDERMAL SCH (17:43)
--- NOTE | 2017-11-03 18:30 | Cardiology Report ---
APPROVED REPORT EKG Measurement Heart [id number] Normal sinus rhythm Low voltage QRS Borderline ECG
--- NOTE | 2017-11-03 18:44 | Cardiology Report ---
APPROVED REPORT EKG Measurement Heart [id number] NC [id number] Sinus tachycardia Low voltage QRS Cannot rule out Anterior infarct, age undetermined Abnormal ECG
[2017-11-03] MEDS ORDERED: Miralax 17gm pkt ORAL PRN (18:45)
[2017-11-03] MEDS ORDERED: Zolpidem 5mg tab ORAL PRN (18:45)
[2017-11-03 20:00] VITALS: BP 152/73
--- NOTE | 2017-11-03 20:57 | General Progress Note ---
Assessment/Plan Status: stable, progressing Subjective Date patient seen: Nov 03, 2017 Neurologic/Psychiatric: Reports: anxiety, depressed, emotional problems Allergies: Coded Allergies: NO KNOWN ALLERGIES (Verified Allergy, Unknown, 10/23/17) Objective Last 24 Hour Vital Signs Date Time Temp Pulse Resp B/P (MAP) Pulse Ox O2 Delivery O2 Flow Rate FiO2 11/03/17 20:00 78 20 Room Air 21 11/03/17 19:30 Room Air 21 11/03/17 19:19 Room Air 11/03/17 17:43 105/55 11/03/17 16:00 98.1 76 22 105/61 97 Room Air 98.1 11/03/17 15:11 Room Air 11/03/17 12:00 97.5 76 22 107/59 97 Room Air 97.5 11/03/17 09:50 140/63 11/03/17 09:49 71 140/63 11/03/17 09:00 Room Air 21 11/03/17 09:00 80 16 Room Air 21 11/03/17 08:00 97.0 83 22 131/59 97 Room Air 97.0 11/03/17 04:00 97.6 76 18 129/71 98 Room Air 97.6 11/03/17 04:00 78 11/03/17 00:00 98.0 80 18 132/64 96 Room Air 98.0 11/03/17 00:00 79 11/02/17 21:49 140/59 Intake and Output 11/02/17 11/03/17 19:00 07:00 Intake Total 360 ml Output Total 100 ml Balance 360 ml -100 ml Intake Oral 360 ml Output Urine Total 100 ml Laboratory Tests 11/03/17 03:15: White Blood Count 5.4, Red Blood Count 2.63L, Hemoglobin 8.5L, Hematocrit 25.8L , Mean Corpuscular Volume 98, Mean Corpuscular Hemoglobin 32.3H, Mean Corpuscular Hemoglobin Concent 32.9, Red Cell Distribution Width 12.5, Platelet Count 343, Mean Platelet Volume 5.0L, Neutrophils (%) (Auto) 60.9, Lymphocytes ( %) (Auto) 19.2L, Monocytes (%) (Auto) 11.4H, Eosinophils (%) (Auto) 7.7H, Basophils (%) (Auto) 0.8, Sodium Level 136, Potassium Level 4.4, Chloride Level 95L, Carbon Dioxide Level 32, Anion Gap 9, Blood Urea Nitrogen 52H, Creatinine 7.9H, Estimat Glomerular Filtration Rate , Glucose Level 64L, Calcium Level 8.7 , Troponin I 0.009 11/03/17 10:45: Troponin I 0.008 Height (Feet): 5 Weight (Pounds): 190 Umair Matthews M.D. Nov 03, 2017 20:57
[2017-11-04 04:32] VITALS: BP 136/68
[2017-11-04] MEDS: NovoLOG Insulin Flexpen SUBQ SCH ×4 (06:09→22:07)
[2017-11-04] MEDS: Renvela 800mg Pkt NG SCH ×3 (09:30→18:00)
[2017-11-04] MEDS: Aspirin Baby 81mg ORAL SCH (09:30)
[2017-11-04] MEDS: Timolol 0.5% Op Soln 2.5ml BOTH EYES SCH ×2 (09:30→12:49)
[2017-11-04] MEDS: Brimonidine 0.2% Opth Sol BOTH EYES SCH ×2 (09:30→12:49)
[2017-11-04] MEDS: Lisinopril 2.5mg tab ORAL SCH ×2 (09:31→22:05)
[2017-11-04] MEDS: Heparin 5000 units/ml inj SUBQ SCH ×2 (09:32→22:07)
--- NOTE | 2017-11-04 11:17 | Nephrology Progress Note ---
Assessment/Plan Problem List: (1) HTN (hypertension) (2) Pacemaker (3) ESRD (end stage renal disease) on dialysis (4) Acute encephalopathy Assessment encephalopathy ESRD DM HTN Pacer / CHF Plan Dialysis in am Adjust BP meds- per neuro per orders Subjective ROS Limited/Unobtainable: No Objective Objective Last 24 Hour Vital Signs Date Time Temp Pulse Resp B/P (MAP) Pulse Ox O2 Delivery O2 Flow Rate FiO2 11/04/17 09:36 103 136/68 11/04/17 09:31 136/68 11/04/17 06:45 Room Air 21 11/04/17 06:45 80 20 Room Air 21 11/04/17 04:32 98.2 103 20 136/68 91 98.2 11/03/17 21:05 153/73 11/03/17 20:00 78 20 Room Air 21 11/03/17 20:00 98.1 91 21 152/73 93 98.1 11/03/17 19:30 Room Air 21 11/03/17 19:19 Room Air 11/03/17 17:43 105/55 11/03/17 16:00 98.1 76 22 105/61 97 Room Air 98.1 11/03/17 15:11 Room Air 11/03/17 12:00 97.5 76 22 107/59 97 Room Air 97.5 Intake and Output 11/03/17 11/04/17 19:00 07:00 Intake Total 240 ml 720 ml Output Total 0 ml 6200 ml Balance 240 ml -5480 ml Intake Oral 240 ml 720 ml Output Urine Total 0 ml 800 ml Gastric Drainage Total 3200 ml Hemodialysis UF 2200 ml # Voids 2 Height (Feet): 5 Weight (Pounds): 190 Objective no change MELY SINGH Nov 04, 2017 11:17
[2017-11-04 12:00] VITALS: BP 124/78
--- NOTE | 2017-11-04 12:39 | Internal Med Progress Note ---
Subjective Date of Service: Nov 04, 2017 Physician Name Sunny Carbajal Attending Physician Evin Newton MD Current Medications Medications (Trade) Dose Ordered Sig/Tanya Route PRN Reason Start Time Stop Time Status Last Admin Dose Admin Acetaminophen (Tylenol) 650 mg Q4H PRN ORAL fever 11/03/17 10:45 11/30/17 18:44 Albuterol/ Ipratropium (Albuterol/ Ipratropium) 3 ml Q6H PRN HHN dyspnea 11/03/17 12:45 11/05/17 18:44 Amlodipine Besylate (Norvasc) 2.5 mg DAILY ORAL 11/03/17 09:00 12/01/17 08:59 11/04/17 09:36 Aspirin (ASA) 81 mg DAILY ORAL 11/03/17 09:00 12/02/17 08:59 11/04/17 09:30 Brimonidine Tartrate (Alphagan) 1 drop BID BOTH EYES 11/03/17 09:00 12/03/17 08:59 11/04/17 09:30 Clonidine HCl (Catapres Tab) 0.1 mg Q4H PRN ORAL For High Blood Pressure 11/03/17 10:45 11/30/17 18:44 Dextrose (Dextrose 50%) STAT PRN IV Hypoglycemia 11/03/17 18:45 11/30/17 18:44 Heparin Sodium (Porcine) (Heparin 5000 units/ml) 5,000 units EVERY 12 HOURS SUBQ 11/03/17 09:00 11/30/17 20:59 11/04/17 09:32 Insulin Aspart (NovoLOG) BEFORE MEALS AND HS SUBQ 11/03/17 11:30 11/30/17 20:59 11/04/17 06:09 Lisinopril (Zestril) 2.5 mg Q12HR ORAL 11/03/17 09:00 11/30/17 20:59 11/04/17 09:31 Morphine Sulfate (Morphine Sulfate) 1 mg Q4H PRN IVP For Pain 11/03/17 10:45 11/07/17 18:44 Nitroglycerin (Ntg) 1 patch Q24H TDERMAL 11/03/17 18:30 12/01/17 18:29 11/03/17 17:43 Ondansetron HCl (Zofran) 4 mg Q6H PRN IVP Nausea & Vomiting 11/03/17 12:45 11/30/17 18:44 Polyethylene Glycol (Miralax) 17 gm HSPRN PRN ORAL Constipation 11/03/17 18:45 11/30/17 18:44 Risperidone (RisperDAL) 0.5 mg TID ORAL 11/04/17 13:00 12/02/17 20:59 Sevelamer Carbonate (Renvela) 1,600 mg THREE TIMES A DAY NG 11/03/17 18:00 12/03/17 17:59 11/04/17 09:30 Timolol Maleate (Timoptic 0.5% Op Soln) 1 drop TWICE A DAY BOTH EYES 11/03/17 09:00 12/03/17 08:59 11/04/17 09:30 Zolpidem Tartrate (Ambien) 5 mg HSPRN PRN ORAL Insomnia 11/03/17 18:45 11/07/17 18:44 Allergies: Coded Allergies: NO KNOWN ALLERGIES (Verified Allergy, Unknown, 10/23/17) ROS Limited/Unobtainable: No Constitutional: Reports: no symptoms HEENT: Reports: no symptoms Cardiovascular: Reports: no symptoms Respiratory: Reports: no symptoms Gastrointestinal/Abdominal: Reports: no symptoms Genitourinary: Reports: no symptoms Neurologic/Psychiatric: Reports: no symptoms Subjective 81 YO M admitted with altered mental status. Now elevated troponin and CHF. Cover for Alondra Newton Objective Last Vital Signs Date Time Temp Pulse Resp B/P (MAP) Pulse Ox O2 Delivery O2 Flow Rate FiO2 11/04/17 09:36 103 136/68 11/04/17 06:45 Room Air 21 11/04/17 06:45 20 11/04/17 04:32 98.2 91 98.2 11/02/17 16:00 2.0 Intake and Output 11/03/17 11/04/17 19:00 07:00 Intake Total 240 ml 720 ml Output Total 0 ml 6200 ml Balance 240 ml -5480 ml Intake Oral 240 ml 720 ml Output Urine Total 0 ml 800 ml Gastric Drainage Total 3200 ml Hemodialysis UF 2200 ml # Voids 2 Objective General Appearance: WD/WN, no apparent distress, alert EENT: PERRL/EOMI, normal ENT inspection, TMs normal Neck: non-tender, normal alignment, supple, normal inspection Cardiovascular: normal peripheral pulses, normal rate, regular rhythm, no gallop/murmur, no JVD Respiratory/Chest: chest wall non-tender, lungs clear, normal breath sounds, no respiratory distress, no accessory muscle use Abdomen: normal bowel sounds, non tender, soft, no organomegaly, no mass Extremities: normal range of motion, non-tender Edema: trace edema Skin: normal pigmentation, warm/dry Assessment/Plan Problem List: (1) ESRD (end stage renal disease) on dialysis Assessment & Plan: See nephrology note. Hemodialysis tomorrow. (2) Diabetes mellitus, type II (3) HTN (hypertension) Assessment & Plan: Continue lisinipril (4) Altered mental status (5) Elevated troponin Assessment & Plan: Await cardiology consult. Status: stable Assessment/Plan Discharge planning: Family requests return to [facility]-D/W son and grandson SUNNY CARBAJAL Nov 04, 2017 12:39
[2017-11-04 16:16] VITALS: BP 179/98
[2017-11-04] MEDS: Nitroglycerin Patch 0.2mg/hr TDERMAL SCH (17:59)
[2017-11-04 20:00] VITALS: BP_SYST 159; BP_SYST 165; BP_DIAS 81; BP_DIAS 96
--- NOTE | 2017-11-04 22:02 | Pulmonology Progress Note ---
Assessment/Plan Problems: (1) Acute encephalopathy (2) Subdural hematoma (3) HTN (hypertension) (4) ESRD (end stage renal disease) on dialysis (5) Diabetes mellitus (6) ESRF (end stage renal failure) (7) Pacemaker Assessment/Plan d/w daughter at the bed site check electrolytes doing better sliding scale diabetic diet dc probably tomorrow to his home, as wants him to go home Subjective Interval Events: confused, comfortable Allergies: Coded Allergies: NO KNOWN ALLERGIES (Verified Allergy, Unknown, 10/23/17) Objective Last 24 Hour Vital Signs Date Time Temp Pulse Resp B/P (MAP) Pulse Ox O2 Delivery O2 Flow Rate FiO2 11/04/17 20:26 108 20 Room Air 21 11/04/17 20:26 Room Air 21 11/04/17 20:00 97.5 108 20 159/81 7 Room Air 97.5 11/04/17 17:59 179/98 11/04/17 16:16 97.9 108 20 179/98 Room Air 97.9 11/04/17 12:00 98.3 100 18 124/78 91 98.3 11/04/17 09:36 103 136/68 11/04/17 09:31 136/68 11/04/17 06:45 Room Air 21 11/04/17 06:45 80 20 Room Air 21 11/04/17 04:32 98.2 103 20 136/68 91 98.2 Intake and Output 11/03/17 11/04/17 19:00 07:00 Intake Total 240 ml 720 ml Output Total 0 ml 6200 ml Balance 240 ml -5480 ml Intake Oral 240 ml 720 ml Output Urine Total 0 ml 800 ml Gastric Drainage Total 3200 ml Hemodialysis UF 2200 ml # Voids 2 Objective General Appearance: WD/WN Lines, tubes and drains: peripheral HEENT: normocephalic, atraumatic Neck: non-tender, normal alignment Respiratory/Chest: chest wall non-tender, lungs clear, loud rhonchi Breasts: no masses Cardiovascular/Chest: normal peripheral pulses, normal rate, no JVD Abdomen: normal bowel sounds, non tender Genitourinary/Rectal: normal genital exam Extremities: normal range of motion, non-tender Skin Exam: normal pigmentation, warm/dry Current Medications Medications (Trade) Dose Ordered Sig/Tanya Route PRN Reason Start Time Stop Time Status Last Admin Dose Admin Acetaminophen (Tylenol) 650 mg Q4H PRN ORAL fever 11/03/17 10:45 11/30/17 18:44 Albuterol/ Ipratropium (Albuterol/ Ipratropium) 3 ml Q6H PRN HHN dyspnea 11/03/17 12:45 11/05/17 18:44 Amlodipine Besylate (Norvasc) 2.5 mg DAILY ORAL 11/03/17 09:00 12/01/17 08:59 11/04/17 09:36 Aspirin (ASA) 81 mg DAILY ORAL 11/03/17 09:00 12/02/17 08:59 11/04/17 09:30 Brimonidine Tartrate (Alphagan) 1 drop BID BOTH EYES 11/03/17 09:00 12/03/17 08:59 11/04/17 12:49 Clonidine HCl (Catapres Tab) 0.1 mg Q4H PRN ORAL For High Blood Pressure 11/03/17 10:45 11/30/17 18:44 Dextrose (Dextrose 50%) STAT PRN IV Hypoglycemia 11/03/17 18:45 11/30/17 18:44 Heparin Sodium (Porcine) (Heparin 5000 units/ml) 5,000 units EVERY 12 HOURS SUBQ 11/03/17 09:00 11/30/17 20:59 11/04/17 09:32 Insulin Aspart (NovoLOG) BEFORE MEALS AND HS SUBQ 11/03/17 11:30 11/30/17 20:59 11/04/17 18:01 Lisinopril (Zestril) 2.5 mg Q12HR ORAL 11/03/17 09:00 11/30/17 20:59 11/04/17 09:31 Morphine Sulfate (Morphine Sulfate) 1 mg Q4H PRN IVP For Pain 11/03/17 10:45 11/07/17 18:44 Nitroglycerin (Ntg) 1 patch Q24H TDERMAL 11/03/17 18:30 12/01/17 18:29 11/04/17 17:59 Ondansetron HCl (Zofran) 4 mg Q6H PRN IVP Nausea & Vomiting 11/03/17 12:45 11/30/17 18:44 Polyethylene Glycol (Miralax) 17 gm HSPRN PRN ORAL Constipation 11/03/17 18:45 11/30/17 18:44 Risperidone (RisperDAL) 0.5 mg TID ORAL 11/04/17 13:00 12/02/17 20:59 11/04/17 12:49 Sevelamer Carbonate (Renvela) 1,600 mg THREE TIMES A DAY NG 11/03/17 18:00 12/03/17 17:59 11/04/17 12:49 Timolol Maleate (Timoptic 0.5% Op Soln) 1 drop TWICE A DAY BOTH EYES 11/03/17 09:00 12/03/17 08:59 11/04/17 12:49 Zolpidem Tartrate (Ambien) 5 mg HSPRN PRN ORAL Insomnia 11/03/17 18:45 11/07/17 18:44 Ginny Zhao MD Nov 04, 2017 22:02
[2017-11-05 04:00] VITALS: BP 146/81
[2017-11-05] MEDS: NovoLOG Insulin Flexpen SUBQ SCH ×4 (06:30→21:00)
[2017-11-05] MEDS ORDERED: Etomidate 40mg/20ml Inj IV ONE (08:14)
[2017-11-05] MEDS ORDERED: Zemuron 50mg/5ml Inj IV ONE (08:14)
[2017-11-05 08:15] VITALS: BP 135/63
[2017-11-05 08:52] LABS: ALANINE AMINOTRANSFERASE 29 U/L (12-78); ALBUMIN 3.2 G/DL (3.4-5.0); ALKALINE PHOSPHATASE 59 U/L (46-116); ASPARTATE AMINO TRANSFERASE 31 U/L (15-37); BILIRUBIN,DIRECT 0.1 MG/DL (0.0-0.3); BILIRUBIN,TOTAL 0.6 MG/DL (0.2-1.0); PHOSPHORUS 6.1 MG/DL (2.5-4.9)
[2017-11-05] MEDS: Aspirin Baby 81mg ORAL SCH ×2 (09:00→10:45)
[2017-11-05] MEDS: Renvela 800mg Pkt NG SCH ×5 (09:00→18:00)
[2017-11-05] MEDS: Lisinopril 2.5mg tab ORAL SCH ×2 (09:00→20:58)
[2017-11-05 09:42] LABS: ANION GAP 12 mmol/L (5-15); BLOOD UREA NITROGEN 63 mg/dL (7-18); CALCIUM 9.3 MG/DL (8.5-10.1); CARBON DIOXIDE 27 MMOL/L (21-32); CHLORIDE 98 MMOL/L (98-107); CREATININE 9.4 MG/DL (0.55-1.30); POTASSIUM 4.9 MMOL/L (3.5-5.1); SODIUM 137 MMOL/L (136-145)
[2017-11-05 09:46] LABS: ALANINE AMINOTRANSFERASE 29 U/L (12-78); ALBUMIN 3.2 G/DL (3.4-5.0); ALBUMIN/GLOBULIN RATIO 0.7 (1.0-2.7); ALKALINE PHOSPHATASE 59 U/L (46-116); ASPARTATE AMINO TRANSFERASE 34 U/L (15-37); BILIRUBIN,TOTAL 0.6 MG/DL (0.2-1.0)
[2017-11-05] MEDS: Timolol 0.5% Op Soln 2.5ml BOTH EYES SCH ×2 (10:45→18:10)
[2017-11-05] MEDS: Brimonidine 0.2% Opth Sol BOTH EYES SCH ×2 (10:45→18:09)
[2017-11-05] MEDS: Heparin 5000 units/ml inj SUBQ SCH ×2 (10:47→20:59)
[2017-11-05 11:42] VITALS: BP 129/72
--- NOTE | 2017-11-05 15:24 | Nephrology Progress Note ---
Assessment/Plan Problem List: (1) HTN (hypertension) (2) Pacemaker (3) ESRD (end stage renal disease) on dialysis (4) Acute encephalopathy Assessment encephalopathy ESRD DM HTN Pacer / CHF Plan Dialysis todat 11/05 Adjust BP meds- per neuro per orders Subjective ROS Limited/Unobtainable: No Constitutional: Reports: malaise, weakness Objective Objective Last 24 Hour Vital Signs Date Time Temp Pulse Resp B/P (MAP) Pulse Ox O2 Delivery O2 Flow Rate FiO2 11/05/17 13:25 Room Air 11/05/17 11:42 97.9 19 129/72 96 97.9 11/05/17 09:00 135/63 11/05/17 08:15 97.8 99 18 135/63 Room Air 97.8 11/05/17 06:45 97 18 Room Air 21 11/05/17 06:45 Room Air 21 11/05/17 04:00 Room Air 11/05/17 04:00 97.0 99 20 146/81 96 Room Air 97.0 11/05/17 00:00 Room Air 11/04/17 22:05 159/81 11/04/17 20:26 108 20 Room Air 21 11/04/17 20:26 Room Air 21 11/04/17 20:00 97.5 108 20 159/81 7 Room Air 97.5 11/04/17 20:00 Room Air 11/04/17 17:59 179/98 11/04/17 16:16 97.9 108 20 179/98 Room Air 97.9 Intake and Output 11/04/17 11/05/17 19:00 07:00 Intake Total 240 ml Output Total 0 ml Balance 240 ml 0 ml Intake Oral 240 ml Output Urine Total 0 ml # Voids 2 Laboratory Tests 11/05/17 06:25: Phosphorus Level 6.1H, Magnesium Level 2.6H, Total Bilirubin 0.6, Direct Bilirubin 0.1, Aspartate Amino Transf (AST/SGOT) 31, Alanine Aminotransferase ( ALT/SGPT) 29, Alkaline Phosphatase 59, Total Protein 7.7, Albumin 3.2L 11/05/17 06:40: Total Bilirubin 0.6, Aspartate Amino Transf (AST/SGOT) 34, Alanine Aminotransferase (ALT/SGPT) 29, Alkaline Phosphatase 59, Total Protein 7.7, Albumin 3.2L, Sodium Level 137, Potassium Level 4.9, Chloride Level 98, Carbon Dioxide Level 27, Anion Gap 12, Blood Urea Nitrogen 63H, Creatinine 9.4H, Estimat Glomerular Filtration Rate , Glucose Level 85, Calcium Level 9.3, Globulin 4.5, Albumin/Globulin Ratio 0.7L Height (Feet): 5 Weight (Pounds): 190 General Appearance: no apparent distress Objective no change MELY SINGH Nov 05, 2017 15:24
[2017-11-05 16:14] VITALS: BP 93/74
--- NOTE | 2017-11-05 16:36 | Pulmonology Progress Note ---
Assessment/Plan Problems: (1) Acute encephalopathy (2) Subdural hematoma (3) HTN (hypertension) (4) ESRD (end stage renal disease) on dialysis (5) Diabetes mellitus (6) ESRF (end stage renal failure) (7) Pacemaker Assessment/Plan d/w daughter at the bed site, d/w grand son, about comfort care. check electrolytes doing better sliding scale diabetic diet apparently, pts daughter can't take care of him at home Subjective ROS Limited/Unobtainable: No Constitutional: Reports: no symptoms HEENT: Repors: no symptoms Respiratory: Reports: no symptoms Allergies: Coded Allergies: NO KNOWN ALLERGIES (Verified Allergy, Unknown, 10/23/17) Objective Last 24 Hour Vital Signs Date Time Temp Pulse Resp B/P (MAP) Pulse Ox O2 Delivery O2 Flow Rate FiO2 11/05/17 16:14 98.0 75 18 93/74 95 Room Air 98.0 11/05/17 13:25 Room Air 11/05/17 11:42 97.9 19 129/72 96 97.9 11/05/17 09:00 135/63 11/05/17 08:15 97.8 99 18 135/63 Room Air 97.8 11/05/17 06:45 97 18 Room Air 21 11/05/17 06:45 Room Air 21 11/05/17 04:00 Room Air 11/05/17 04:00 97.0 99 20 146/81 96 Room Air 97.0 11/05/17 00:00 Room Air 11/04/17 22:05 159/81 11/04/17 20:26 108 20 Room Air 21 11/04/17 20:26 Room Air 21 11/04/17 20:00 97.5 108 20 159/81 7 Room Air 97.5 11/04/17 20:00 Room Air 11/04/17 17:59 179/98 Intake and Output 11/04/17 11/05/17 19:00 07:00 Intake Total 240 ml Output Total 0 ml Balance 240 ml 0 ml Intake Oral 240 ml Output Urine Total 0 ml # Voids 2 Objective General Appearance: WD/WN Lines, tubes and drains: peripheral HEENT: normocephalic, atraumatic Neck: non-tender, normal alignment Respiratory/Chest: chest wall non-tender, lungs clear, loud rhonchi Breasts: no masses Cardiovascular/Chest: normal peripheral pulses, normal rate, no JVD Abdomen: normal bowel sounds, non tender Genitourinary/Rectal: normal genital exam Extremities: normal range of motion, non-tender Skin Exam: normal pigmentation, warm/dry Laboratory Tests 11/05/17 06:25: Phosphorus Level 6.1H, Magnesium Level 2.6H, Total Bilirubin 0.6, Direct Bilirubin 0.1, Aspartate Amino Transf (AST/SGOT) 31, Alanine Aminotransferase ( ALT/SGPT) 29, Alkaline Phosphatase 59, Total Protein 7.7, Albumin 3.2L 11/05/17 06:40: Total Bilirubin 0.6, Aspartate Amino Transf (AST/SGOT) 34, Alanine Aminotransferase (ALT/SGPT) 29, Alkaline Phosphatase 59, Total Protein 7.7, Albumin 3.2L, Sodium Level 137, Potassium Level 4.9, Chloride Level 98, Carbon Dioxide Level 27, Anion Gap 12, Blood Urea Nitrogen 63H, Creatinine 9.4H, Estimat Glomerular Filtration Rate , Glucose Level 85, Calcium Level 9.3, Globulin 4.5, Albumin/Globulin Ratio 0.7L Current Medications Medications (Trade) Dose Ordered Sig/Tanya Route PRN Reason Start Time Stop Time Status Last Admin Dose Admin Acetaminophen (Tylenol) 650 mg Q4H PRN ORAL fever 11/03/17 10:45 11/30/17 18:44 Albuterol/ Ipratropium (Albuterol/ Ipratropium) 3 ml Q6H PRN HHN dyspnea 11/03/17 12:45 11/05/17 18:44 Amlodipine Besylate (Norvasc) 2.5 mg DAILY ORAL 11/03/17 09:00 12/01/17 08:59 11/04/17 09:36 Aspirin (ASA) 81 mg DAILY ORAL 11/03/17 09:00 12/02/17 08:59 11/05/17 10:45 Brimonidine Tartrate (Alphagan) 1 drop BID BOTH EYES 11/03/17 09:00 12/03/17 08:59 11/05/17 10:45 Clonidine HCl (Catapres Tab) 0.1 mg Q4H PRN ORAL For High Blood Pressure 11/03/17 10:45 11/30/17 18:44 Dextrose (Dextrose 50%) STAT PRN IV Hypoglycemia 3/20/18 18:45 11/30/17 18:44 Heparin Sodium (Porcine) (Heparin 5000 units/ml) 5,000 units EVERY 12 HOURS SUBQ 11/03/17 09:00 11/30/17 20:59 11/05/17 10:47 Insulin Aspart (NovoLOG) BEFORE MEALS AND HS SUBQ 11/03/17 11:30 11/30/17 20:59 11/04/17 22:07 Lisinopril (Zestril) 2.5 mg Q12HR ORAL 11/03/17 09:00 11/30/17 20:59 11/04/17 22:05 Morphine Sulfate (Morphine Sulfate) 1 mg Q4H PRN IVP For Pain 11/03/17 10:45 11/07/17 18:44 Nitroglycerin (Ntg) 1 patch Q24H TDERMAL 11/03/17 18:30 12/01/17 18:29 11/04/17 17:59 Ondansetron HCl (Zofran) 4 mg Q6H PRN IVP Nausea & Vomiting 11/03/17 12:45 11/30/17 18:44 Polyethylene Glycol (Miralax) 17 gm HSPRN PRN ORAL Constipation 11/03/17 18:45 11/30/17 18:44 Risperidone (RisperDAL) 0.5 mg TID ORAL 11/04/17 13:00 12/02/17 20:59 11/05/17 10:46 Sevelamer Carbonate (Renvela) 1,600 mg THREE TIMES A DAY NG 11/03/17 18:00 12/03/17 17:59 11/05/17 10:46 Timolol Maleate (Timoptic 0.5% Op Soln) 1 drop TWICE A DAY BOTH EYES 11/03/17 09:00 12/03/17 08:59 11/05/17 10:45 Zolpidem Tartrate (Ambien) 5 mg HSPRN PRN ORAL Insomnia 11/03/17 18:45 11/07/17 18:44 Ginny Zhao MD Nov 05, 2017 16:36
--- NOTE | 2017-11-05 17:42 | Internal Med Progress Note ---
Subjective Date of Service: Nov 05, 2017 Physician Name Jack Olivarez Attending Physician Evin Newton MD Current Medications Medications (Trade) Dose Ordered Sig/Tanya Route PRN Reason Start Time Stop Time Status Last Admin Dose Admin Acetaminophen (Tylenol) 650 mg Q4H PRN ORAL fever 11/03/17 10:45 11/30/17 18:44 Albuterol/ Ipratropium (Albuterol/ Ipratropium) 3 ml Q6H PRN HHN dyspnea 11/03/17 12:45 11/05/17 18:44 Amlodipine Besylate (Norvasc) 2.5 mg DAILY ORAL 11/03/17 09:00 12/01/17 08:59 11/04/17 09:36 Aspirin (ASA) 81 mg DAILY ORAL 11/03/17 09:00 12/02/17 08:59 11/05/17 10:45 Brimonidine Tartrate (Alphagan) 1 drop BID BOTH EYES 11/03/17 09:00 12/03/17 08:59 11/05/17 10:45 Clonidine HCl (Catapres Tab) 0.1 mg Q4H PRN ORAL For High Blood Pressure 11/03/17 10:45 11/30/17 18:44 Dextrose (Dextrose 50%) STAT PRN IV Hypoglycemia 11/03/17 18:45 11/30/17 18:44 Heparin Sodium (Porcine) (Heparin 5000 units/ml) 5,000 units EVERY 12 HOURS SUBQ 11/03/17 09:00 11/30/17 20:59 11/05/17 10:47 Insulin Aspart (NovoLOG) BEFORE MEALS AND HS SUBQ 11/03/17 11:30 11/30/17 20:59 11/04/17 22:07 Lisinopril (Zestril) 2.5 mg Q12HR ORAL 11/03/17 09:00 11/30/17 20:59 11/04/17 22:05 Morphine Sulfate (Morphine Sulfate) 1 mg Q4H PRN IVP For Pain 11/03/17 10:45 11/07/17 18:44 Nitroglycerin (Ntg) 1 patch Q24H TDERMAL 11/03/17 18:30 12/01/17 18:29 11/04/17 17:59 Ondansetron HCl (Zofran) 4 mg Q6H PRN IVP Nausea & Vomiting 11/03/17 12:45 11/30/17 18:44 Polyethylene Glycol (Miralax) 17 gm HSPRN PRN ORAL Constipation 11/03/17 18:45 11/30/17 18:44 Risperidone (RisperDAL) 0.5 mg TID ORAL 11/04/17 13:00 12/02/17 20:59 11/05/17 10:46 Sevelamer Carbonate (Renvela) 1,600 mg THREE TIMES A DAY NG 11/03/17 18:00 12/03/17 17:59 11/05/17 10:46 Timolol Maleate (Timoptic 0.5% Op Soln) 1 drop TWICE A DAY BOTH EYES 11/03/17 09:00 12/03/17 08:59 11/05/17 10:45 Zolpidem Tartrate (Ambien) 5 mg HSPRN PRN ORAL Insomnia 11/03/17 18:45 11/07/17 18:44 Allergies: Coded Allergies: NO KNOWN ALLERGIES (Verified Allergy, Unknown, 10/23/17) ROS Limited/Unobtainable: Yes Subjective 81 YO M admitted with altered mental status. Now elevated troponin and CHF. Cover for Int Med-Dr Newtno. Refusing to eat. Undergoing dialysis Objective Last Vital Signs Date Time Temp Pulse Resp B/P (MAP) Pulse Ox O2 Delivery O2 Flow Rate FiO2 11/05/17 16:30 Room Air 11/05/17 16:14 98.0 75 18 93/74 95 98.0 11/05/17 06:45 21 11/02/17 16:00 2.0 Laboratory Tests Test 11/05/17 06:25 11/05/17 06:40 Phosphorus Level 6.1 MG/DL (2.5-4.9) H Magnesium Level 2.6 MG/DL (1.8-2.4) H Total Bilirubin 0.6 MG/DL (0.2-1.0) 0.6 MG/DL (0.2-1.0) Direct Bilirubin 0.1 MG/DL (0.0-0.3) Aspartate Amino Transf (AST/SGOT) 31 U/L (15-37) 34 U/L (15-37) Alanine Aminotransferase (ALT/SGPT) 29 U/L (12-78) 29 U/L (12-78) Alkaline Phosphatase 59 U/L (46-116) 59 U/L (46-116) Total Protein 7.7 G/DL (6.4-8.2) 7.7 G/DL (6.4-8.2) Albumin 3.2 G/DL (3.4-5.0) L 3.2 G/DL (3.4-5.0) L Sodium Level 137 MMOL/L (136-145) Potassium Level 4.9 MMOL/L (3.5-5.1) Chloride Level 98 MMOL/L (98-107) Carbon Dioxide Level 27 MMOL/L (21-32) Anion Gap 12 mmol/L (5-15) Blood Urea Nitrogen 63 mg/dL (7-18) H Creatinine 9.4 MG/DL (0.55-1.30) H Estimat Glomerular Filtration Rate mL/min (>60) Glucose Level 85 MG/DL (74-106) Calcium Level 9.3 MG/DL (8.5-10.1) Globulin 4.5 g/dL Albumin/Globulin Ratio 0.7 (1.0-2.7) L Intake and Output 11/04/17 11/05/17 19:00 07:00 Intake Total 240 ml Output Total 0 ml Balance 240 ml 0 ml Intake Oral 240 ml Output Urine Total 0 ml # Voids 2 Objective General Appearance: WD/WN, no apparent distress, alert EENT: PERRL/EOMI, normal ENT inspection, TMs normal Neck: non-tender, normal alignment, supple, normal inspection Cardiovascular: normal peripheral pulses, normal rate, regular rhythm, no gallop/murmur, no JVD Respiratory/Chest: chest wall non-tender, lungs clear, normal breath sounds, no respiratory distress, no accessory muscle use Abdomen: normal bowel sounds, non tender, soft, no organomegaly, no mass Extremities: normal range of motion, non-tender Edema: trace edema Skin: normal pigmentation, warm/dry Assessment/Plan Problem List: (1) ESRD (end stage renal disease) on dialysis Assessment & Plan: See nephrology note. Hemodialysis 11/05 (2) Diabetes mellitus, type II (3) HTN (hypertension) Assessment & Plan: Continue lisinipril (4) Altered mental status Assessment & Plan: Chronic subdural hematoma-await neurology consult. (5) Elevated troponin Assessment & Plan: Await cardiology consult. (6) Subdural hematoma Assessment & Plan: Chronic (7) Anorexia Assessment & Plan: Calorie count; PEG eval Status: unchanged Assessment/Plan Discharge planning: Not able to return to [facility]-D/W son and JACK Alarcon Nov 05, 2017 17:42
[2017-11-05] MEDS ORDERED: Glucagon 1mg Inj IM PRN (17:45)
--- NOTE | 2017-11-05 17:57 | Cardiology Progress Note ---
Assessment/Plan Assessment/Plan 1. Abnormal cardiac enzymes. 2. End-stage renal disease, on hemodialysis. 3. Recurrent episodes of acute confusional state. 4. Diabetes mellitus. 5. History of permanent pacemaker implantation. all repat trop neg confused is on dialysios but bp not allow sig fludi remoaval oterwise bp has been stable marge dialysis Subjective ROS Limited/Unobtainable: Yes Objective Last 24 Hour Vital Signs Date Time Temp Pulse Resp B/P (MAP) Pulse Ox O2 Delivery O2 Flow Rate FiO2 11/05/17 16:30 Room Air 11/05/17 16:14 98.0 75 18 93/74 95 Room Air 98.0 11/05/17 13:25 Room Air 11/05/17 11:42 97.9 19 129/72 96 97.9 11/05/17 09:00 135/63 11/05/17 08:15 97.8 99 18 135/63 Room Air 97.8 11/05/17 06:45 97 18 Room Air 21 11/05/17 06:45 Room Air 21 11/05/17 04:00 Room Air 11/05/17 04:00 97.0 99 20 146/81 96 Room Air 97.0 11/05/17 00:00 Room Air 11/04/17 22:05 159/81 11/04/17 20:26 108 20 Room Air 21 11/04/17 20:26 Room Air 21 11/04/17 20:00 97.5 108 20 159/81 7 Room Air 97.5 11/04/17 20:00 Room Air 11/04/17 17:59 179/98 General Appearance: other - drowsey but arousable and responsive but difficutl to comprehen his speech Cardiovascular: normal rate, regular rhythm Respiratory/Chest: rhonchi - bilaterally Abdomen: normal bowel sounds, non tender, soft Extremities: no swelling Intake and Output 11/04/17 11/05/17 19:00 07:00 Intake Total 240 ml Output Total 0 ml Balance 240 ml 0 ml Intake Oral 240 ml Output Urine Total 0 ml # Voids 2 Laboratory Tests Test 11/05/17 06:25 11/05/17 06:40 Phosphorus Level 6.1 MG/DL (2.5-4.9) H Magnesium Level 2.6 MG/DL (1.8-2.4) H Total Bilirubin 0.6 MG/DL (0.2-1.0) 0.6 MG/DL (0.2-1.0) Direct Bilirubin 0.1 MG/DL (0.0-0.3) Aspartate Amino Transf (AST/SGOT) 31 U/L (15-37) 34 U/L (15-37) Alanine Aminotransferase (ALT/SGPT) 29 U/L (12-78) 29 U/L (12-78) Alkaline Phosphatase 59 U/L (46-116) 59 U/L (46-116) Total Protein 7.7 G/DL (6.4-8.2) 7.7 G/DL (6.4-8.2) Albumin 3.2 G/DL (3.4-5.0) L 3.2 G/DL (3.4-5.0) L Sodium Level 137 MMOL/L (136-145) Potassium Level 4.9 MMOL/L (3.5-5.1) Chloride Level 98 MMOL/L (98-107) Carbon Dioxide Level 27 MMOL/L (21-32) Anion Gap 12 mmol/L (5-15) Blood Urea Nitrogen 63 mg/dL (7-18) H Creatinine 9.4 MG/DL (0.55-1.30) H Estimat Glomerular Filtration Rate mL/min (>60) Glucose Level 85 MG/DL (74-106) Calcium Level 9.3 MG/DL (8.5-10.1) Globulin 4.5 g/dL Albumin/Globulin Ratio 0.7 (1.0-2.7) L CHRISTINA KU Nov 05, 2017 17:57
[2017-11-05] MEDS: Nitroglycerin Patch 0.2mg/hr TDERMAL SCH (18:09)
[2017-11-05 20:00] VITALS: BP 137/77
--- NOTE | 2017-11-05 22:00 | General Progress Note ---
Assessment/Plan Status: stable, progressing Subjective Date patient seen: Nov 05, 2017 Neurologic/Psychiatric: Reports: anxiety, depressed Allergies: Coded Allergies: NO KNOWN ALLERGIES (Verified Allergy, Unknown, 10/23/17) Objective Last 24 Hour Vital Signs Date Time Temp Pulse Resp B/P (MAP) Pulse Ox O2 Delivery O2 Flow Rate FiO2 11/05/17 20:58 137/77 11/05/17 20:11 96 18 Room Air 21 11/05/17 20:00 98.2 98 20 137/77 90 98.2 11/05/17 18:09 93/74 11/05/17 16:30 Room Air 11/05/17 16:14 98.0 75 18 93/74 95 Room Air 98.0 11/05/17 13:25 Room Air 11/05/17 11:42 97.9 19 129/72 96 97.9 11/05/17 09:00 135/63 11/05/17 08:15 97.8 99 18 135/63 Room Air 97.8 11/05/17 06:45 97 18 Room Air 21 11/05/17 06:45 Room Air 21 11/05/17 04:00 Room Air 11/05/17 04:00 97.0 99 20 146/81 96 Room Air 97.0 11/05/17 00:00 Room Air 11/04/17 22:05 159/81 Intake and Output 11/04/17 11/05/17 19:00 07:00 Intake Total 240 ml Output Total 0 ml Balance 240 ml 0 ml Intake Oral 240 ml Output Urine Total 0 ml # Voids 2 Laboratory Tests 11/05/17 06:25: Phosphorus Level 6.1H, Magnesium Level 2.6H, Total Bilirubin 0.6, Direct Bilirubin 0.1, Aspartate Amino Transf (AST/SGOT) 31, Alanine Aminotransferase ( ALT/SGPT) 29, Alkaline Phosphatase 59, Total Protein 7.7, Albumin 3.2L 11/05/17 06:40: Total Bilirubin 0.6, Aspartate Amino Transf (AST/SGOT) 34, Alanine Aminotransferase (ALT/SGPT) 29, Alkaline Phosphatase 59, Total Protein 7.7, Albumin 3.2L, Sodium Level 137, Potassium Level 4.9, Chloride Level 98, Carbon Dioxide Level 27, Anion Gap 12, Blood Urea Nitrogen 63H, Creatinine 9.4H, Estimat Glomerular Filtration Rate , Glucose Level 85, Calcium Level 9.3, Globulin 4.5, Albumin/Globulin Ratio 0.7L Height (Feet): 5 Weight (Pounds): 190 Umair Matthews M.D. Nov 05, 2017 22:00
[2017-11-06] VITALS: BP 130/69
[2017-11-06 04:00] VITALS: BP 95/60
[2017-11-06] MEDS: NovoLOG Insulin Flexpen SUBQ SCH ×3 (05:54→17:00)
[2017-11-06 08:00] VITALS: BP 142/53
--- NOTE | 2017-11-06 08:27 | Pulmonology Progress Note ---
Assessment/Plan Assessment/Plan ASSESSMENT Acute toxic metabolic encephalopathy resolved on chronic dementia ESRD, on HD elevated troponin (single episode only, likely due to ESRD) anemia ( of chronic kidney disease) pacemaker DM mild pulmonary HTN dementia with behavioral changes PLAN OF CARE MS floor CT head no acute IC pathology ECHO with pEF 60-65% no chest pain Serial troponin all negative except the first one ECG no acute ischemic changes, rule out for acute MT CXR initially with fluid overload nephro follows HD as per nephro monitor renal parameters, lytes, O2 HHN prn BP management with CCB and JAGDISH continue ASA BS management with SSI [id number] not at goal yet psych follows, optimized psych med regimen DVT prophylaxis Bowel regimen symptomatic treatment seen by GI for possible PEG placement, however started to eat and ate 100% Daughter was informed by dr Zhao about prognosis, plan of care and discussed comfort care Daughter unable to take care of him at home will need placement SS for placement dc to SNF today case discussed and evaluated by supervising physician Subjective Allergies: Coded Allergies: NO KNOWN ALLERGIES (Verified Allergy, Unknown, 10/23/17) Subjective started to eat, ate 100% had HD 11/05 Objective Last 24 Hour Vital Signs Date Time Temp Pulse Resp B/P (MAP) Pulse Ox O2 Delivery O2 Flow Rate FiO2 11/06/17 07:10 92 18 Room Air 21 11/06/17 04:00 97.7 90 21 95/60 92 97.7 11/06/17 00:00 98.6 75 20 130/69 100 98.6 11/05/17 20:58 137/77 11/05/17 20:11 96 18 Room Air 21 11/05/17 20:00 98.2 98 20 137/77 90 98.2 11/05/17 18:09 93/74 11/05/17 16:30 Room Air 11/05/17 16:14 98.0 75 18 93/74 95 Room Air 98.0 11/05/17 13:25 Room Air 11/05/17 11:42 97.9 19 129/72 96 97.9 11/05/17 09:00 135/63 Intake and Output 11/05/17 11/06/17 19:00 07:00 Output Total 1480 ml 0 ml Balance -1480 ml 0 ml Output Urine Total 0 ml Hemodialysis UF 1480 ml # Voids 1 # Bowel Movements 2 General Appearance: no acute distress HEENT: normocephalic, atraumatic, anicteric Respiratory/Chest: lungs clear, normal breath sounds Abdomen: normal bowel sounds, soft, non tender - obese Neurologic/Psychiatric: abnormal gait, alert, responsive Current Medications Medications (Trade) Dose Ordered Sig/Tanya Route PRN Reason Start Time Stop Time Status Last Admin Dose Admin Acetaminophen (Tylenol) 650 mg Q4H PRN ORAL fever 11/03/17 10:45 11/30/17 18:44 Amlodipine Besylate (Norvasc) 2.5 mg DAILY ORAL 11/03/17 09:00 12/01/17 08:59 11/04/17 09:36 Aspirin (ASA) 81 mg DAILY ORAL 11/03/17 09:00 12/02/17 08:59 11/04/17 09:30 Brimonidine Tartrate (Alphagan) 1 drop BID BOTH EYES 11/03/17 09:00 12/03/17 08:59 11/05/17 18:09 Clonidine HCl (Catapres Tab) 0.1 mg Q4H PRN ORAL For High Blood Pressure 11/03/17 10:45 11/30/17 18:44 Dextrose (Dextrose 50%) STAT PRN IV Hypoglycemia 11/03/17 18:45 11/30/17 18:44 Glucagon (Glucagon) 1 mg PRN PRN IM Hypoglycemia 11/05/17 17:45 12/05/17 17:44 Heparin Sodium (Porcine) (Heparin 5000 units/ml) 5,000 units EVERY 12 HOURS SUBQ 11/03/17 09:00 11/30/17 20:59 11/05/17 20:59 Insulin Aspart (NovoLOG) BEFORE MEALS AND HS SUBQ 11/03/17 11:30 11/30/17 20:59 11/06/17 05:54 Lisinopril (Zestril) 2.5 mg Q12HR ORAL 11/03/17 09:00 11/30/17 20:59 11/05/17 20:58 Morphine Sulfate (Morphine Sulfate) 1 mg Q4H PRN IVP For Pain 11/03/17 10:45 11/07/17 18:44 Nitroglycerin (Ntg) 1 patch Q24H TDERMAL 11/03/17 18:30 12/01/17 18:29 11/05/17 18:09 Ondansetron HCl (Zofran) 4 mg Q6H PRN IVP Nausea & Vomiting 11/03/17 12:45 11/30/17 18:44 Polyethylene Glycol (Miralax) 17 gm HSPRN PRN ORAL Constipation 11/03/17 18:45 11/30/17 18:44 Risperidone (RisperDAL) 0.5 mg TID ORAL 11/04/17 13:00 12/02/17 20:59 11/04/17 12:49 Sevelamer Carbonate (Renvela) 1,600 mg THREE TIMES A DAY NG 11/03/17 18:00 12/03/17 17:59 11/04/17 12:49 Timolol Maleate (Timoptic 0.5% Op Soln) 1 drop TWICE A DAY BOTH EYES 11/03/17 09:00 12/03/17 08:59 11/05/17 18:10 Zolpidem Tartrate (Ambien) 5 mg HSPRN PRN ORAL Insomnia 11/03/17 18:45 11/07/17 18:44 Navi WrightDelphine guzmán NP Nov 06, 2017 08:27
[2017-11-06] MEDS: Timolol 0.5% Op Soln 2.5ml BOTH EYES SCH (09:09)
[2017-11-06] MEDS: Aspirin Baby 81mg ORAL SCH (09:09)
[2017-11-06] MEDS: Lisinopril 2.5mg tab ORAL SCH (09:09)
[2017-11-06] MEDS: Brimonidine 0.2% Opth Sol BOTH EYES SCH (09:09)
[2017-11-06] MEDS: Renvela 800mg Pkt NG SCH ×2 (09:09→12:55)
[2017-11-06] MEDS: Heparin 5000 units/ml inj SUBQ SCH (09:11)
--- NOTE | 2017-11-06 09:58 | Diagnostic Imaging Report ---
Indication: Cough Technique: One view of the chest Comparison: 10/31/2017 Findings: There is a left chest pacemaker. There is a right innominate venous stent. Generalized mild interstitial prominence appears slightly improved compared to the previous exam. No focal airspace consolidation. No definite effusions. Heart size is upper limits of normal. Findings are unchanged Impression: Slightly improved mild interstitial congestion, over 6 days Other stable findings as noted
--- NOTE | 2017-11-06 11:21 | GI Initial Consult Note ---
ModestaBethany Massimo NCordellPCordell 11/06/17 1121: History of Present Illness General Date patient seen: Nov 06, 2017 Time patient seen: 11:12 Reason for Hospitalization: Altered Level of Consciousness Referring physician: MILTON LEE Reason for Consultation: PEG EVALUATION Present Illness HPI The patient was admitted to [facility] on 10/22/2017 through 2017. Please see history and physical and discharge summary dictated at that time. The patient was [facility]. According to the patient 's daughter who is at the bedside, the patient had altered mental status yesterday during dialysis. She was unable to wake the patient. The patient was transported to [facility] emergency room. The patient was admitted for altered mental status to rule out acute cerebrovascular accident. GI consulted for PEG evaluation. MARICEL edwards AMS. Pt seen, awake. Per RN report, the patient has had encephalopathy and had not eaten for 2 days and thus GI was consulted. GT placement was discussed with the family prior, however, at that time they were unsure of having one placed. Today, it was reported the patient became more alert and aware after his dialysis and tolerated 100% of his morning breakfast. He presents with anemia and renal failure. Home Meds Active Scripts Sevelamer Carbonate* (RENVELA*) 0.8 Gm Powd.pack, 1600 MG ORAL THREE TIMES A DAY for 30 Days, PACK Prov:Ginny Zhao MD 10/28/17 Metoprolol Tartrate (Metoprolol Tartrate) 25 Mg Tablet, 12.5 MG ORAL Q12HR for 30 Days, TAB Prov:Ginny Zhao MD 10/28/17 Lisinopril (LISINOPRIL*) 5 Mg Tablet, 2.5 MG ORAL BID for 30 Days, TAB Prov:Ginny Zhao MD 10/28/17 Reported Medications Brimonidine Tartrate (ALPHAGAN P) 5 Ml Drops, 5 ML OP BID, #1 ML 11/02/17 Timolol Maleate (TIMOLOL MALEATE) 5 Ml Drop.daily, 5 ML OP BID, #1 11/02/17 Loperamide Hcl (ANTI-DIARRHEA) 2 Mg Tablet, 2 MG PO Q6HR PRN for Diarrhea, TAB 10/31/17 Clonidine Hcl* (CATAPRES*) 0.1 Mg Tablet, 0.1 MG ORAL PRN PRN for For High Blood Pressure, TAB 10/31/17 Acetaminophen* (ACETAMINOPHEN 325MG TABLET*) 325 Mg Tablet, 650 MG ORAL Q4H PRN for Fever/Headache/Mild Pain, TAB 10/31/17 Fexofenadine Hcl (FEXOFENADINE HCL*) 60 Mg Tablet, 60 MG ORAL DAILY, 0 Refills 10/31/17 Sevelamer Hcl (RENAGEL) 800 Mg Tablet, 3 TAB ORAL BID, TAB 10/31/17 Vitamin B Complex (VITAMIN B COMPLEX) 1 Each Capsule, 1 CAP ORAL DAILY, CAP 0 Refills 10/22/17 Sildenafil Citrate (SILDENAFIL) 20 Mg Tablet, 25 MG ORAL PRN, TAB 0 Refills 10/22/17 Cinacalcet* (SENSIPAR*) Unknown Strength Tablet, 30 MG ORAL HS 10/22/17 Folic Acid/Vitamin B Comp W-C (LORA-JENNIFER TABLET) 0.8 Mg Tablet, 0.5 MG ORAL DAILY 10/22/17 Omeprazole (OMEPRAZOLE) 40 Mg Capsule.dr, 40 MG ORAL DAILY 10/22/17 Glyburide (GLYBURIDE) 5 Mg Tablet, 5 MG ORAL DAILY 10/22/17 Amlodipine Besylate* (AMLODIPINE BESYLATE*) 2.5 Mg Tablet, 2.5 MG ORAL DAILY 10/22/17 Losartan Potassium (LOSARTAN POTASSIUM) 100 Mg Tablet, 100 MG ORAL DAILY 10/22/17 Med list reviewed/reconciled: Yes Allergies: Coded Allergies: NO KNOWN ALLERGIES (Verified Allergy, Unknown, 10/23/17) Patient History PMH Narrative 1. Type 2 diabetes. 2. End-stage renal disease, on hemodialysis every Thursday, , and Thursday. 3. Gastroesophageal reflux disease. 4. Hypertension. PAST SURGICAL HISTORY: Significant for: 1. Arteriovenous graft placement in the right arm. 2. Cataract surgery. 3. Pacemaker implantation. Review of Systems All Other Systems: negative except mentioned in HPI Physical Exam Vital Signs Date Time Temp Pulse Resp B/P (MAP) Pulse Ox O2 Delivery O2 Flow Rate FiO2 11/02/17 07:10 83 16 Nasal Cannula 2.0 28 11/02/17 08:00 97.2 138/72 94 97.2 Sp02 EP Interpretation: reviewed, normal General Appearance: well appearing, no apparent distress, alert Head: normocephalic EENT: PERRL/EOMI, normal ENT inspection Neck: supple Respiratory: normal breath sounds, no respiratory distress Cardiovascular: normal rate Gastrointestinal: normal inspection, non tender, soft, normal bowel sounds, non -distended Rectal: deferred Genitourinary: deferred Musculoskeletal: normal inspection, back normal Neurologic: alert, responsive Skin: normal inspection, normal color, no rash, warm/dry, palpation normal, well hydrated Lymphatic: normal inspection, no adenopathy Current Medications Current Medications Medications (Trade) Dose Ordered Sig/Tanya Route PRN Reason Start Time Stop Time Status Last Admin Dose Admin Acetaminophen (Tylenol) 650 mg Q4H PRN ORAL fever 11/03/17 10:45 11/30/17 18:44 Amlodipine Besylate (Norvasc) 2.5 mg DAILY ORAL 11/03/17 09:00 12/01/17 08:59 11/06/17 09:10 Aspirin (ASA) 81 mg DAILY ORAL 11/03/17 09:00 12/02/17 08:59 11/06/17 09:09 Brimonidine Tartrate (Alphagan) 1 drop BID BOTH EYES 11/03/17 09:00 12/03/17 08:59 11/06/17 09:09 Clonidine HCl (Catapres Tab) 0.1 mg Q4H PRN ORAL For High Blood Pressure 11/03/17 10:45 11/30/17 18:44 Dextrose (Dextrose 50%) STAT PRN IV Hypoglycemia 11/03/17 18:45 11/30/17 18:44 Glucagon (Glucagon) 1 mg PRN PRN IM Hypoglycemia 11/05/17 17:45 12/05/17 17:44 Heparin Sodium (Porcine) (Heparin 5000 units/ml) 5,000 units EVERY 12 HOURS SUBQ 11/03/17 09:00 11/30/17 20:59 11/06/17 09:11 Insulin Aspart (NovoLOG) BEFORE MEALS AND HS SUBQ 11/03/17 11:30 11/30/17 20:59 11/06/17 05:54 Lisinopril (Zestril) 2.5 mg Q12HR ORAL 11/03/17 09:00 11/30/17 20:59 11/06/17 09:09 Morphine Sulfate (Morphine Sulfate) 1 mg Q4H PRN IVP For Pain 11/03/17 10:45 3/24/18 18:44 Nitroglycerin (Ntg) 1 patch Q24H TDERMAL 11/03/17 18:30 12/01/17 18:29 11/05/17 18:09 Ondansetron HCl (Zofran) 4 mg Q6H PRN IVP Nausea & Vomiting 11/03/17 12:45 11/30/17 18:44 Polyethylene Glycol (Miralax) 17 gm HSPRN PRN ORAL Constipation 11/03/17 18:45 11/30/17 18:44 Risperidone (RisperDAL) 0.5 mg TID ORAL 11/04/17 13:00 12/02/17 20:59 11/06/17 09:10 Sevelamer Carbonate (Renvela) 1,600 mg THREE TIMES A DAY NG 11/03/17 18:00 12/03/17 17:59 11/06/17 09:09 Timolol Maleate (Timoptic 0.5% Op Soln) 1 drop TWICE A DAY BOTH EYES 11/03/17 09:00 12/03/17 08:59 11/06/17 09:09 Zolpidem Tartrate (Ambien) 5 mg HSPRN PRN ORAL Insomnia 11/03/17 18:45 11/07/17 18:44 GI: Plan Problems: (1) Anemia (2) Encounter for PEG (percutaneous endoscopic gastrostomy) (3) Pacemaker (4) Altered mental status (5) ESRD (end stage renal disease) on dialysis Plan patient does not need PEG, now tolerating 100% renal soft diet without any s/sx of aspiration anemia 2/2 to renal disease symptomatic treatment / supportive care fu labs Discussed with Dr. Townsend. Thank you for this patient referral, we will follow. MELISSA TOWNSEND 11/10/17 0714: History of Present Illness General Reason for Hospitalization: Altered Level of Consciousness Present Illness Home Meds Active Scripts Sevelamer Carbonate* (RENVELA*) 0.8 Gm Powd.pack, 1600 MG ORAL THREE TIMES A DAY for 30 Days, PACK Prov:Ginny Zhao MD 10/28/17 Metoprolol Tartrate (Metoprolol Tartrate) 25 Mg Tablet, 12.5 MG ORAL Q12HR for 30 Days, TAB Prov:Ginny Zhao MD 10/28/17 Lisinopril (LISINOPRIL*) 5 Mg Tablet, 2.5 MG ORAL BID for 30 Days, TAB Prov:Ginny Zhao MD 10/28/17 Reported Medications Brimonidine Tartrate (ALPHAGAN P) 5 Ml Drops, 5 ML OP BID, #1 ML 11/02/17 Timolol Maleate (TIMOLOL MALEATE) 5 Ml Drop.daily, 5 ML OP BID, #1 11/02/17 Loperamide Hcl (ANTI-DIARRHEA) 2 Mg Tablet, 2 MG PO Q6HR PRN for Diarrhea, TAB 10/31/17 Clonidine Hcl* (CATAPRES*) 0.1 Mg Tablet, 0.1 MG ORAL PRN PRN for For High Blood Pressure, TAB 10/31/17 Acetaminophen* (ACETAMINOPHEN 325MG TABLET*) 325 Mg Tablet, 650 MG ORAL Q4H PRN for Fever/Headache/Mild Pain, TAB 10/31/17 Fexofenadine Hcl (FEXOFENADINE HCL*) 60 Mg Tablet, 60 MG ORAL DAILY, 0 Refills 10/31/17 Sevelamer Hcl (RENAGEL) 800 Mg Tablet, 3 TAB ORAL BID, TAB 10/31/17 Vitamin B Complex (VITAMIN B COMPLEX) 1 Each Capsule, 1 CAP ORAL DAILY, CAP 0 Refills 10/22/17 Sildenafil Citrate (SILDENAFIL) 20 Mg Tablet, 25 MG ORAL PRN, TAB 0 Refills 10/22/17 Cinacalcet* (SENSIPAR*) Unknown Strength Tablet, 30 MG ORAL HS 10/22/17 Folic Acid/Vitamin B Comp W-C (LOAR-JENNIFER TABLET) 0.8 Mg Tablet, 0.5 MG ORAL DAILY 10/22/17 Omeprazole (OMEPRAZOLE) 40 Mg Capsule.dr, 40 MG ORAL DAILY 10/22/17 Glyburide (GLYBURIDE) 5 Mg Tablet, 5 MG ORAL DAILY 10/22/17 Amlodipine Besylate* (AMLODIPINE BESYLATE*) 2.5 Mg Tablet, 2.5 MG ORAL DAILY 10/22/17 Losartan Potassium (LOSARTAN POTASSIUM) 100 Mg Tablet, 100 MG ORAL DAILY 10/22/17 Allergies: Coded Allergies: NO KNOWN ALLERGIES (Verified Allergy, Unknown, 10/23/17) GI: Plan Plan The patient was seen and examined at bedside and all new and available data was reviewed in the patients chart. I agree with the above findings, impression and plan. (Patient seen earlier today. Signature stamp does not reflect patient encounter time.). - MD Modesta Kelly Anh Massimo Whitaker Nov 06, 2017 11:21 MELISSA TOWNSEND Nov 10, 2017 07:14
[2017-11-06 11:56] LABS: BASOPHILS % (AUTO) 1.9 % (0.0-2.0); EOSINOPHILS % (AUTO) 1.8 % (0.0-3.0); LYMPHOCYTES % (AUTO) 11.3 % (20.0-45.0); MEAN CORPUSCULAR VOLUME 99 FL (80-99); MONOCYTES % (AUTO) 4.9 % (1.0-10.0); NEUTROPHILS % (AUTO) 80.2 % (45.0-75.0); PLATELET COUNT 244 K/UL (150-450); RED BLOOD COUNT 2.32 M/UL (4.70-6.10); RED CELL DISTRIBUTION WIDTH 12.2 % (11.6-14.8); WHITE BLOOD COUNT 6.2 K/UL (4.8-10.8)
[2017-11-06 11:57] VITALS: BP 102/48
[2017-11-06 12:04] LABS: ANION GAP 11 mmol/L (5-15); BLOOD UREA NITROGEN 53 mg/dL (7-18); CALCIUM 8.4 MG/DL (8.5-10.1); CARBON DIOXIDE 29 MMOL/L (21-32); CHLORIDE 93 MMOL/L (98-107); CREATININE 7.5 MG/DL (0.55-1.30); POTASSIUM 4.7 MMOL/L (3.5-5.1); SODIUM 133 MMOL/L (136-145)
--- NOTE | 2017-11-06 14:43 | General Progress Note ---
Assessment/Plan Status: stable, progressing Assessment/Plan encephalopathy dementia with behavioral disturbance -cont risperdal -spoke with family Subjective Date patient seen: Nov 06, 2017 Neurologic/Psychiatric: Reports: anxiety, depressed Allergies: Coded Allergies: NO KNOWN ALLERGIES (Verified Allergy, Unknown, 10/23/17) Subjective the pt calmer and less anxious Objective Last 24 Hour Vital Signs Date Time Temp Pulse Resp B/P (MAP) Pulse Ox O2 Delivery O2 Flow Rate FiO2 11/06/17 11:57 97.2 69 16 102/48 100 Room Air 97.2 11/06/17 09:10 98 142/53 11/06/17 09:09 142/53 11/06/17 08:00 97.2 98 17 142/53 93 Room Air 97.2 11/06/17 07:10 92 18 Room Air 21 11/06/17 04:00 97.7 90 21 95/60 92 97.7 11/06/17 00:00 98.6 75 20 130/69 100 98.6 11/05/17 20:58 137/77 11/05/17 20:11 96 18 Room Air 21 11/05/17 20:00 98.2 98 20 137/77 90 98.2 11/05/17 18:09 93/74 11/05/17 16:30 Room Air 11/05/17 16:14 98.0 75 18 93/74 95 Room Air 98.0 Intake and Output 11/05/17 11/06/17 19:00 07:00 Output Total 1480 ml 0 ml Balance -1480 ml 0 ml Output Urine Total 0 ml Hemodialysis UF 1480 ml # Voids 1 # Bowel Movements 2 Laboratory Tests 11/06/17 11:40: White Blood Count 6.2, Red Blood Count 2.32L, Hemoglobin 8.0L, Hematocrit 23.0L , Mean Corpuscular Volume 99, Mean Corpuscular Hemoglobin 34.3H, Mean Corpuscular Hemoglobin Concent 34.7, Red Cell Distribution Width 12.2, Platelet Count 244, Mean Platelet Volume 5.4L, Neutrophils (%) (Auto) 80.2H, Lymphocytes (%) (Auto) 11.3L, Monocytes (%) (Auto) 4.9, Eosinophils (%) (Auto) 1.8, Basophils (%) (Auto) 1.9, Sodium Level 133L, Potassium Level 4.7, Chloride Level 93L, Carbon Dioxide Level 29, Anion Gap 11, Blood Urea Nitrogen 53H, Creatinine 7.5H, Estimat Glomerular Filtration Rate , Glucose Level 200#H, Calcium Level 8.4L Height (Feet): 5 Weight (Pounds): 190 General Appearance: WD/WN, no apparent distress, alert, confused Umair Matthews M.D. Nov 06, 2017 14:43
--- NOTE | 2017-11-06 14:55 | Nephrology Progress Note ---
Assessment/Plan Problem List: (1) HTN (hypertension) (2) Pacemaker (3) ESRD (end stage renal disease) on dialysis (4) Acute encephalopathy Assessment encephalopathy ESRD DM HTN Pacer / CHF Plan Dialysis todat 11/07 Adjust BP meds- per neuro per orders Subjective ROS Limited/Unobtainable: No Constitutional: Reports: malaise Objective Objective Last 24 Hour Vital Signs Date Time Temp Pulse Resp B/P (MAP) Pulse Ox O2 Delivery O2 Flow Rate FiO2 11/06/17 11:57 97.2 69 16 102/48 100 Room Air 97.2 11/06/17 09:10 98 142/53 11/06/17 09:09 142/53 11/06/17 08:00 97.2 98 17 142/53 93 Room Air 97.2 11/06/17 07:10 92 18 Room Air 21 11/06/17 04:00 97.7 90 21 95/60 92 97.7 11/06/17 00:00 98.6 75 20 130/69 100 98.6 11/05/17 20:58 137/77 11/05/17 20:11 96 18 Room Air 21 11/05/17 20:00 98.2 98 20 137/77 90 98.2 11/05/17 18:09 93/74 11/05/17 16:30 Room Air 11/05/17 16:14 98.0 75 18 93/74 95 Room Air 98.0 Intake and Output 11/05/17 11/06/17 19:00 07:00 Output Total 1480 ml 0 ml Balance -1480 ml 0 ml Output Urine Total 0 ml Hemodialysis UF 1480 ml # Voids 1 # Bowel Movements 2 Laboratory Tests 11/06/17 11:40: White Blood Count 6.2, Red Blood Count 2.32L, Hemoglobin 8.0L, Hematocrit 23.0L , Mean Corpuscular Volume 99, Mean Corpuscular Hemoglobin 34.3H, Mean Corpuscular Hemoglobin Concent 34.7, Red Cell Distribution Width 12.2, Platelet Count 244, Mean Platelet Volume 5.4L, Neutrophils (%) (Auto) 80.2H, Lymphocytes (%) (Auto) 11.3L, Monocytes (%) (Auto) 4.9, Eosinophils (%) (Auto) 1.8, Basophils (%) (Auto) 1.9, Sodium Level 133L, Potassium Level 4.7, Chloride Level 93L, Carbon Dioxide Level 29, Anion Gap 11, Blood Urea Nitrogen 53H, Creatinine 7.5H, Estimat Glomerular Filtration Rate , Glucose Level 200#H, Calcium Level 8.4L Height (Feet): 5 Weight (Pounds): 190 General Appearance: no apparent distress Objective no change MELY SINGH Nov 06, 2017 14:55
[2017-11-06 16:00] VITALS: BP 98/48
--- NOTE | 2017-11-06 18:02 | Internal Med Progress Note ---
Subjective Date of Service: Nov 06, 2017 Physician Name Sunny Carbajal Attending Physician Evin Newton MD Current Medications Medications (Trade) Dose Ordered Sig/Tanya Route PRN Reason Start Time Stop Time Status Last Admin Dose Admin Acetaminophen (Tylenol) 650 mg Q4H PRN ORAL fever 11/03/17 10:45 11/30/17 18:44 Amlodipine Besylate (Norvasc) 2.5 mg DAILY ORAL 11/03/17 09:00 12/01/17 08:59 11/06/17 09:10 Aspirin (ASA) 81 mg DAILY ORAL 11/03/17 09:00 12/02/17 08:59 11/06/17 09:09 Brimonidine Tartrate (Alphagan) 1 drop BID BOTH EYES 11/03/17 09:00 12/03/17 08:59 11/06/17 09:09 Cetylpyridinium Chloride (Cepacol) 1 lozg EVERY 2 HOURS PRN MAYUR For Pain 11/06/17 16:45 12/06/17 16:44 11/06/17 16:59 Clonidine HCl (Catapres Tab) 0.1 mg Q4H PRN ORAL For High Blood Pressure 11/03/17 10:45 11/30/17 18:44 Dextrose (Dextrose 50%) STAT PRN IV Hypoglycemia 11/03/17 18:45 11/30/17 18:44 Glucagon (Glucagon) 1 mg PRN PRN IM Hypoglycemia 11/05/17 17:45 12/05/17 17:44 Heparin Sodium (Porcine) (Heparin 5000 units/ml) 5,000 units EVERY 12 HOURS SUBQ 11/03/17 09:00 11/30/17 20:59 11/06/17 09:11 Insulin Aspart (NovoLOG) BEFORE MEALS AND HS SUBQ 11/03/17 11:30 11/30/17 20:59 11/06/17 17:00 Lisinopril (Zestril) 2.5 mg Q12HR ORAL 11/03/17 09:00 11/30/17 20:59 11/06/17 09:09 Morphine Sulfate (Morphine Sulfate) 1 mg Q4H PRN IVP For Pain 11/03/17 10:45 11/07/17 18:44 Nitroglycerin (Ntg) 1 patch Q24H TDERMAL 11/03/17 18:30 12/01/17 18:29 11/05/17 18:09 Ondansetron HCl (Zofran) 4 mg Q6H PRN IVP Nausea & Vomiting 11/03/17 12:45 11/30/17 18:44 Polyethylene Glycol (Miralax) 17 gm HSPRN PRN ORAL Constipation 11/03/17 18:45 11/30/17 18:44 Risperidone (RisperDAL) 0.5 mg TID ORAL 11/04/17 13:00 12/02/17 20:59 11/06/17 12:55 Sevelamer Carbonate (Renvela) 1,600 mg THREE TIMES A DAY NG 11/03/17 18:00 12/03/17 17:59 11/06/17 12:55 Timolol Maleate (Timoptic 0.5% Op Soln) 1 drop TWICE A DAY BOTH EYES 11/03/17 09:00 12/03/17 08:59 11/06/17 09:09 Zolpidem Tartrate (Ambien) 5 mg HSPRN PRN ORAL Insomnia 11/03/17 18:45 11/07/17 18:44 Allergies: Coded Allergies: NO KNOWN ALLERGIES (Verified Allergy, Unknown, 10/23/17) ROS Limited/Unobtainable: Yes Subjective 81 YO M admitted with altered mental status. Now elevated troponin and CHF. Cover for Int Med-Dr Newton. Refusing to eat. Await transfer to [facility] SN[facility] Objective Last Vital Signs Date Time Temp Pulse Resp B/P (MAP) Pulse Ox O2 Delivery O2 Flow Rate FiO2 11/06/17 16:00 96.5 83 20 98/48 97 Room Air 96.5 11/06/17 07:10 21 11/02/17 16:00 2.0 Laboratory Tests Test 11/06/17 11:40 White Blood Count 6.2 K/UL (4.8-10.8) Red Blood Count 2.32 M/UL (4.70-6.10) L Hemoglobin 8.0 G/DL (14.2-18.0) L Hematocrit 23.0 % (42.0-52.0) L Mean Corpuscular Volume 99 FL (80-99) Mean Corpuscular Hemoglobin 34.3 PG (27.0-31.0) H Mean Corpuscular Hemoglobin Concent 34.7 G/DL (32.0-36.0) Red Cell Distribution Width 12.2 % (11.6-14.8) Platelet Count 244 K/UL (150-450) Mean Platelet Volume 5.4 FL (6.5-10.1) L Neutrophils (%) (Auto) 80.2 % (45.0-75.0) H Lymphocytes (%) (Auto) 11.3 % (20.0-45.0) L Monocytes (%) (Auto) 4.9 % (1.0-10.0) Eosinophils (%) (Auto) 1.8 % (0.0-3.0) Basophils (%) (Auto) 1.9 % (0.0-2.0) Sodium Level 133 MMOL/L (136-145) L Potassium Level 4.7 MMOL/L (3.5-5.1) Chloride Level 93 MMOL/L (98-107) L Carbon Dioxide Level 29 MMOL/L (21-32) Anion Gap 11 mmol/L (5-15) Blood Urea Nitrogen 53 mg/dL (7-18) H Creatinine 7.5 MG/DL (0.55-1.30) H Estimat Glomerular Filtration Rate mL/min (>60) Glucose Level 200 MG/DL (74-106) #H Calcium Level 8.4 MG/DL (8.5-10.1) L Intake and Output 11/05/17 11/06/17 19:00 07:00 Output Total 1480 ml 0 ml Balance -1480 ml 0 ml Output Urine Total 0 ml Hemodialysis UF 1480 ml # Voids 1 # Bowel Movements 2 Objective General Appearance: WD/WN, no apparent distress, alert EENT: PERRL/EOMI, normal ENT inspection, TMs normal Neck: non-tender, normal alignment, supple, normal inspection Cardiovascular: normal peripheral pulses, normal rate, regular rhythm, no gallop/murmur, no JVD Respiratory/Chest: chest wall non-tender, lungs clear, normal breath sounds, no respiratory distress, no accessory muscle use Abdomen: normal bowel sounds, non tender, soft, no organomegaly, no mass Extremities: normal range of motion, non-tender Edema: trace edema Skin: normal pigmentation, warm/dry Assessment/Plan Problem List: (1) ESRD (end stage renal disease) on dialysis Assessment & Plan: See nephrology note. Hemodialysis 11/05 (2) Diabetes mellitus, type II (3) HTN (hypertension) Assessment & Plan: Continue lisinipril (4) Altered mental status Assessment & Plan: Chronic subdural hematoma-await neurology consult. (5) Elevated troponin Assessment & Plan: Await cardiology consult. (6) Subdural hematoma Assessment & Plan: Chronic (7) Anorexia Assessment & Plan: Calorie count; PEG eval Assessment/Plan Discharge planning: Discharge to [facility] today-D/W son and nallely SUNNY CARBAJAL Nov 06, 2017 18:02
--- NOTE | 2017-11-09 11:24 | Discharge Summary ---
Discharge Summary Hospital Course Date of Admission Oct 31, 2017 at 17:04 Date of Discharge Nov 06, 2017 at 18:21 Admitting Diagnosis encephalopathy, renal failure HPI Bartolo Escobar is a 81 year old male who was admitted on Oct 31, 2017 at 17:04 for Encephalopathy,Renal Failure Hospital Course dc summary #[id number] Discharge Medications Continued Medications: Acetaminophen* (Acetaminophen 325MG Tablet*) 325 Mg Tablet 650 MG ORAL Q4H PRN for Fever/Headache/Mild Pain, TAB (This prescription has been renewed) Amlodipine Besylate* (Amlodipine Besylate*) 2.5 Mg Tablet 2.5 MG ORAL DAILY (This prescription has been renewed) Brimonidine Tartrate (Alphagan P) 5 Ml Drops 5 ML OP BID, #1 ML (This prescription has been renewed) Cinacalcet* (Sensipar*) Unknown Strength Tablet 30 MG ORAL HS Clonidine Hcl* (Catapres*) 0.1 Mg Tablet 0.1 MG ORAL PRN PRN for For High Blood Pressure, TAB (This prescription has been renewed) Fexofenadine Hcl (Fexofenadine Hcl*) 60 Mg Tablet 60 MG ORAL DAILY, 0 Refills (This prescription has been renewed) Folic Acid/Vitamin B Comp W-C (Ursula-Armani Tablet) 0.8 Mg Tablet 0.5 MG ORAL DAILY (This prescription has been renewed) Glyburide (Glyburide) 5 Mg Tablet 5 MG ORAL DAILY (This prescription has been renewed) Lisinopril (Lisinopril*) 5 Mg Tablet 2.5 MG ORAL BID for 30 Days, TAB Losartan Potassium (Losartan Potassium) 100 Mg Tablet 100 MG ORAL DAILY (This prescription has been renewed) Metoprolol Tartrate (Metoprolol Tartrate) 25 Mg Tablet 12.5 MG ORAL Q12HR for 30 Days, TAB Sevelamer Carbonate* (Renvela*) 0.8 Gm Powd.pack 1600 MG ORAL THREE TIMES A DAY for 30 Days, PACK Timolol Maleate (Timolol Maleate) 5 Ml Drop.daily 5 ML OP BID, #1 (This prescription has been renewed) Vitamin B Complex (Vitamin B Complex) 1 Each Capsule 1 CAP ORAL DAILY, CAP 0 Refills (This prescription has been renewed) Discharge Condition Upon Discharge: stable Discharge Disposition Patient was discharged to [facility] Delphine Mcelroy NP ([place]anchtein) Nov 09, 2017 11:24
--- NOTE | 2017-11-10 02:46 | Discharge Summary 2 SIG ---
DATE OF ADMISSION: 10/31/2017 DATE OF DISCHARGE: 11/06/2017 REASON FOR ADMISSION: This is an 81-year-old male with past medical history significant for end-stage renal disease, on hemodialysis, diabetes, and pacemaker, presented with altered level of consciousness. Upon evaluation in the emergency room, CT of the head revealed no acute intracranial pathology. However, the patient remained with change of baseline as per family. Laboratory workup was consistent with end-stage renal disease. No leukocytosis. Noted elevated troponin of 0.135. EKG showed normal sinus rate. No acute ischemic changes. Chest x-ray revealed possible cardiomegaly with pulmonary congestion. The patient was admitted for further management with diagnoses of acute encephalopathy, elevated troponin, and end-stage renal disease, on hemodialysis. HOSPITAL COURSE: The patient admitted to telemetry floor. Cardiology, Pulmonology, Nephrology, and Psychiatry consults were requested. Neurology services were not available at that time. CT of the head as mentioned above was negative for any acute intracranial pathology. Hemodialysis was arranged as per mechanical applications engineer and close monitoring of volumes and cardiorenal parameters. Serial troponins were done. Only first one was positive and rest of them were negative per Cardiology likely due to the end-stage renal disease. Again, chest x-ray revealed cardiomegaly and mild interstitial opacification/edema likely related to fluid overload/CHF. Follow up chest x-ray after hemodialysis revealed improved mild interstitial congestion over six days. Echocardiogram revealed preserved ejection fraction of 60% to 65%. The patient denied chest pain. Again, EKG revealed no acute ischemic changes and serial troponin except the first one were all negative. The patient was ruled out for acute AK and single episode of elevated troponin likely related to end-stage renal disease. Seamer [employer]ose closely followed. Hemodialysis was done per mechanical applications engineer. Supplemental oxygen and pulmonary toilet provided as needed. Blood pressure was managed with calcium channel luis and JAGDISH inhibitor. Aspirin was continued. Blood sugar was managed with sliding scale of insulin. Hemoglobin A1c 7.8, not at goal. Need further optimization of anti-glycemic regimen as an outpatient. DVT prophylaxis provided. Bowel regimen instituted. Psychiatrist followed and diagnosed the patient with dementia with behavioral changes and encephalopathy and optimized psychiatric medication regimen. GI initially seen the patient since the patient was not eating for possible PEG placement, however, the patient after ate about 100% of the meal. Daughter was informed by Dr. Zhao about senior analysis specialist about prognosis, plan of care, and comfort care. The daughter was unable to take care of the patient at home and she requested placement for halfway. Placement at halfway was arranged and the patient was stable for discharge to snf facility for continuation of services and plan of care. FINAL DIAGNOSES: Include: 1. Acute toxic metabolic encephalopathy, resolved on chronic dementia. 2. Dementia with behavioral changes. 3. End-stage renal disease, on hemodialysis. 4. Elevated troponin likely related to end-stage renal disease, single episode. 5. Anemia likely of chronic kidney disease. 6. Pacemaker. 7. Diabetes mellitus. 8. Mild pulmonary hypertension. DISCHARGE MEDICATIONS: See medication reconciliation list. DISCHARGE INSTRUCTIONS: The patient discharged to snf facility. Follow up with medical doctor at the facility. Follow up with outpatient hemodialysis. Evin Newton M.D. I have been assigned to dictate discharge summary on this account and I was not involved in the patient's management. Delphine Bustamanteva [facility] system[facility] N.P[facility] DR: Anushka JOB#: [id number] CC:
== END 2017-11-06 18:21 | DRG 91 ==
LOC: EDBD 16:00 → EMR 16:30 → 2E 17:04 → EDBEDREQ 17:44 → 2E 11-01 10:17 → 4E 11-03 08:53
PROC: 5A1D70Z Performance of Urinary Filtration, Intermittent, Less than 6 Hours Per Day (ICD-10-PCS; principal; 2017-11-03)
DX: G92 Toxic encephalopathy (principal); I62.03 Nontraumatic chronic subdural hemorrhage; I12.0 Hypertensive chronic kidney disease with stage 5 chronic kidney disease or end stage renal disease; F03.91 Unspecified dementia, unspecified severity, with behavioral disturbance; N18.6 End stage renal disease; I27.20 Pulmonary hypertension, unspecified; E11.22 Type 2 diabetes mellitus with diabetic chronic kidney disease; E78.5 Hyperlipidemia, unspecified; Z99.2 Dependence on renal dialysis; Z95.0 Presence of cardiac pacemaker; K21.9 Gastro-esophageal reflux disease without esophagitis; R63.0 Anorexia; D63.1 Anemia in chronic kidney disease
CPT/HCPCS: 36415; 36600; 70450; 71045; 80048; 80053; 80061; 80076; 82140; 82550; 82553; 82607; 82746; 82803; 82962; 82977; 83036; 83690; 83735; 83880; 84100; 84443; 84484; 84550; 85025; 86140; 87081; 93005; 94664; 99291; J1815

== ENCOUNTER 2017-11-06 19:28 | Emergency (ER) | payer MEDICARE, OTHER ==
[~2017-11-06] VITALS: Ht 165.1 cm; Wt 63.5 kg
[~2017-11-06 19:28] MED LIST changes: +ACETAMINOPHEN325 M1 ORAL; +ALPHAGAN P5 M2 OP; +ANTI-DIARRHEA2 MG PO; +CATAPRES0.1 MG ORAL; +FEXOFENADINE HC60 MG ORAL; +RENAGEL800 MG ORAL; +TIMOLOL MALEATE5 M2 OP
[2017-11-06 19:35] VITALS: BP 135/58
[2017-11-06 20:00] VITALS: BP 143/65
[2017-11-06 21:50] VITALS: BP 132/84
[2017-11-06 22:00] VITALS: BP 132/84
--- NOTE | 2017-11-09 06:59 | Emergency Room Report ---
History of Present Illness General Chief Complaint: Altered Level of Consciousness Source: Patient, Medical Record Present Illness HPI 81-year-old male presents to ED for evaluation. Patient sent in for evaluation. Patient noted to be altered as per correction. Patient was discharged from [facility] just today and was being transported to [facility] facility. When patient got to [facility] facility he was noted to be hypotensive and altered so sent here for evaluation. Patient has history of end -stage renal disease. Blood pressure in triage within normal limits. Patient is sleeping. History of encephalopathy which is chronic. Patient showing no signs of distress upon arrival. Unable to provide any additional history at this time due to his encephalopathy. No other aggravating relieving factors. No other associated symptoms Allergies: Coded Allergies: NO KNOWN ALLERGIES (Verified Allergy, Unknown, 10/23/17) Patient History Past Medical History: DM, HTN, renal disease, dialysis Past Surgical History: pacemaker Pertinent Family History: none Social History: Denies: smoking, alcohol use, drug use Immunizations: UTD Reviewed Nursing Documentation: PMH: Agreed; PSxH: Agreed Nursing Documentation-PMH Past Medical History: No History, Except For Hx Cardiac Problems: No Hx Hypertension: Yes Hx Pacemaker: Yes Hx Diabetes: Yes Hx Cancer: No Hx Gastrointestinal Problems: No Hx Dialysis: Yes - Tue, Jacob, Sat/ESRD Hx Neurological Problems: No Review of Systems All Other Systems: limited Physical Exam Vital Signs Date Time Temp Pulse Resp B/P (MAP) Pulse Ox O2 Delivery O2 Flow Rate FiO2 11/06/17 19:25 90 18 116/60 97 Room Air 11/06/17 19:35 98.0 2.0 98.0 Sp02 EP Interpretation: reviewed, normal General Appearance: no apparent distress, non-toxic, lethargic Head: normocephalic Eyes: bilateral eye normal inspection, bilateral eye PERRL ENT: normal ENT inspection Neck: normal inspection Respiratory: chest non-tender, lungs clear, normal breath sounds, speaking full sentences Cardiovascular #1: regular rate, rhythm, no edema Gastrointestinal: normal bowel sounds, non tender, soft, non-distended, no guarding, no rebound Rectal: deferred Genitourinary: no CVA tenderness Musculoskeletal: normal inspection Neurologic: other - encephalopathy Psychiatric: other - encephalopathy Skin: normal inspection Lymphatic: normal inspection Medical Decision Making Diagnostic Impression: Primary Impression: Altered level of consciousness ER Course Hospital Course 81-year-old male presents ED presents ED for altered mental status, hypotensive at correction Differential diagnoses include: Pneumonia, UTI, sepsis, dehydration, MT/ unstable angina Clinical course Patient placed on stretcher. On pump assembler with stable vitals are ED course. After initial history and physical, I reviewed EMR. Patient discharged today. During hospital course patient noted to have encephalopathy. h/o chronic subdural hematoma which was unchanged during hospital course Discussed case with PMD Dr. Newton. States patient is at his baseline mentation. Blood pressure normal here. Blood draw done just prior to discharge was unremarkable. He agrees that patient can be discharged without further workup. I agree with his assessment I feel this is a highly complex case requiring extensive working including EKG/ Rhythm strip, Xray/CT/US, Blood/urine lab work, repeat exams while in ED, and administration of strong opiates/narcotics for pain control, admission to hospital or close patient follow up. Diagnosis - ALOC Patient transferred to SNF in stable condition Last Vital Signs Date Time Temp Pulse Resp B/P (MAP) Pulse Ox O2 Delivery O2 Flow Rate FiO2 11/06/17 22:00 98.1 84 16 132/84 100 Nasal Cannula 3.0 98.1 Status: improved Disposition: XFER SNF Condition: Stable Referrals: Evin Newton MD (PCP) Patient Instructions: Altered Mental Status RESHMA YIN M.D. Nov 09, 2017 06:59
== END 2017-11-06 22:00 ==
LOC: EDBD 19:28 → EMR 19:50
DX: R41.82 Altered mental status, unspecified (principal); E11.9 Type 2 diabetes mellitus without complications; I12.0 Hypertensive chronic kidney disease with stage 5 chronic kidney disease or end stage renal disease; N18.6 End stage renal disease; Z99.2 Dependence on renal dialysis
CPT/HCPCS: 82962; 99283